=== PATIENT | female | born 1955 | race Caucasian/White ===

== ENCOUNTER 2018-02-12 11:14 | Inpatient (IN) ==
[2018-02-12] MEDS ORDERED: FUROSEMIDE 40 MG/4 ML VIAL IV STA (12:48)
[2018-02-12] MEDS ORDERED: ONDANSETRON 4 MG/2 ML VIAL IV STA (12:48)
[2018-02-12] MEDS ORDERED: MORPHINE 4 MG/1 ML VIAL IV STA (12:48)
[2018-02-12 13:07] LABS: Basophils % 0.2 % (0.0-0.8); Eosinophils % 0.3 % (0.00-10.9); Hematocrit 41.2 VOL% (35.7-47.0); Hemoglobin 12.8 GM/DL (12.0-16.0); Immature Granulocytes % 0.5 %; Immature Granulocytes Absolute 0.06 #; Lymphocytes # 1.1 10*3/uL (1.4-4.0); Lymphocytes % 9.7 % (21.3-54.2); Mean Corpuscular HGB Conc 31.1 GM/DL (32-36); Mean Corpuscular Hemoglobin 27 PG (27-34); Mean Corpuscular Volume 87.5 FL (87-102); Mean Platelet Volume 10.8 FL (9.6-12.0); Monocytes # 0.6 10*3/uL (0.11-0.8); Monocytes % 5.7 % (1.7-12.7); Neutrophils # 9.4 10*3/uL (1.4-7.4); Neutrophils % 83.6 % (38.7-73.9); Platelet Count 336 T/CUMM (130-400); Red Blood Count 4.71 MC/CUMM (3.8-5.5); White Blood Count 11.2 T/CUMM (4-12)
[2018-02-12 13:20] LABS: Bilirubin,Total 0.4 MG/DL (0.2-1.0); Calcium 9.9 MG/DL (8.5-10.1); Osmolality,Calculated 276.5 MOS/KG (273-304); Potassium 3.5 MMOL/L (3.5-5.1); Total Protein 7.7 G/DL (6.4-8.3)
[2018-02-12 13:24] LABS: PT Patient Result 67.2 SECS
[2018-02-12 13:27] LABS: INR 6.8
[2018-02-12] MEDS ORDERED: MAGNESIUM SULF RIDER 2 GM in PREMIX 1 EACH IV STA (13:47)
[2018-02-12] MEDS ORDERED: ACETAMINOPHEN 325 MG TABLET PO PRN (15:31)
[2018-02-12] MEDS ORDERED: MAGNESIUM HYDROXIDE SUSP 30 ML UDCUP PO PRN (15:36)
[2018-02-12] MEDS ORDERED: HEPARIN 5,000 UNIT/1 ML VIAL IV ONE (16:02)
[2018-02-12 16:39] LABS: Apearance,Urine CLEAR (Clear); Bilirubin,Urine Negative (Negative); Blood, Urine Small mg/dL (Negative); Glucose,Urine (UA) Negative (Negative); Hyaline Casts,Urine 7 /LPF (0-3); Ketones,Urine 5 mg/dL (Negative); Mucus,Urine Occasional /LPF (Occasional); Nitrite,Urine Negative (Negative); Protein,Urine Negative; RBC,Urine <1 /HPF (0-4); Urine Color Straw (Yellow); Urine Specific Gravity 1.004 (1.001-1.035); Urine Urobilinogen < 2.0 EU/DL (0.2-1.0); WBC,Urine 1 /HPF (0-6)
[2018-02-12] MEDS: HEPARIN DRIP 25,000 UNITS/500 ML PREMIX IV SCH (17:00)
[2018-02-12] MEDS: CELECOXIB 200 MG CAPSULE PO SCH (21:13)
[2018-02-12] MEDS: DOCUSATE SODIUM 100 MG CAPSULE PO SCH (21:13)
[2018-02-12] MEDS: ANASTROZOLE 1 MG TABLET PO SCH (21:13)
[2018-02-13 03:50] LABS: Basophils % 0.4 % (0.0-0.8); Eosinophils # 0.1 10*3/uL (0.0-0.87); Hematocrit 34.6 VOL% (35.7-47.0); Hemoglobin 11.2 GM/DL (12.0-16.0); Immature Granulocytes % 0.4 %; Immature Granulocytes Absolute 0.03 #; Lymphocytes # 0.8 10*3/uL (1.4-4.0); Lymphocytes % 9.7 % (21.3-54.2); Mean Corpuscular HGB Conc 32.4 GM/DL (32-36); Mean Corpuscular Hemoglobin 27 PG (27-34); Mean Corpuscular Volume 84.4 FL (87-102); Monocytes # 0.5 10*3/uL (0.11-0.8); Monocytes % 6.3 % (1.7-12.7); Neutrophils # 6.5 10*3/uL (1.4-7.4); Neutrophils % 82.2 % (38.7-73.9); Platelet Count 309 T/CUMM (130-400); Red Cell Distribution Width 14.1 % (9.3-17.3); White Blood Count 7.9 T/CUMM (4-12)
[2018-02-13 03:59] LABS: Calcium 9.3 MG/DL (8.5-10.1); Osmolality,Calculated 275.7 MOS/KG (273-304)
[2018-02-13 04:12] LABS: INR 6.3
[2018-02-13 04:14] LABS: Free T4 (Free Thyroxine) 1.61 NG/DL (0.76-1.46); Thyroid Stimulating Hormone < 0.005 uIU/ml (0.358-3.74)
[2018-02-13 04:26] LABS: Partial Thromboplastin Time > 320.0 SECS (0-40)
[2018-02-13 04:27] LABS: PT Patient Result 62.3 SECS
[2018-02-13 05:10] LABS: Potassium 2.5 MMOL/L (3.5-5.1)
[2018-02-13] MEDS: POTASSIUM CHLORIDE RIDER 10 MEQ in PREMIX 1 EACH IV PRN ×5 (05:30→23:55)
[2018-02-13] MEDS: SPIRONOLACTONE 25 MG TABLET PO SCH (08:19)
[2018-02-13] MEDS: METOPROLOL SUCCINATE XL 100 MG TABLET PO SCH (08:19)
[2018-02-13] MEDS: DILTIAZEM CD 180 MG CAPSULE PO SCH (08:19)
[2018-02-13] MEDS: DOCUSATE SODIUM 100 MG CAPSULE PO SCH ×2 (08:20→20:25)
[2018-02-13] MEDS: PANTOPRAZOLE 40 MG TABLET PO SCH (08:20)
[2018-02-13] MEDS ORDERED: MAGNESIUM SULF RIDER 4 GM in PREMIX 1 EACH IV PRN (08:56)
[2018-02-13] MEDS: MAGNESIUM SULF RIDER 2 GM in PREMIX 1 EACH IV PRN (09:59)
[2018-02-13] MEDS: HEPARIN DRIP 25,000 UNITS/500 ML PREMIX IV SCH ×3 (13:15→20:34)
[2018-02-13] MEDS: ANASTROZOLE 1 MG TABLET PO SCH (20:24)
[2018-02-13] MEDS: CELECOXIB 200 MG CAPSULE PO SCH (20:25)
[2018-02-14] MEDS: POTASSIUM CHLORIDE RIDER 10 MEQ in PREMIX 1 EACH IV PRN ×2 (01:06→02:16)
[2018-02-14 06:59] LABS: Basophils % 0.2 % (0.0-0.8); Eosinophils # 0.2 10*3/uL (0.0-0.87); Eosinophils % 2.1 % (0.00-10.9); Hematocrit 36.7 VOL% (35.7-47.0); Hemoglobin 11.6 GM/DL (12.0-16.0); Immature Granulocytes % 0.3 %; Immature Granulocytes Absolute 0.03 #; Lymphocytes # 1.3 10*3/uL (1.4-4.0); Lymphocytes % 14.2 % (21.3-54.2); Mean Corpuscular HGB Conc 31.6 GM/DL (32-36); Mean Corpuscular Hemoglobin 27 PG (27-34); Mean Corpuscular Volume 86.8 FL (87-102); Mean Platelet Volume 11.2 FL (9.6-12.0); Monocytes # 0.6 10*3/uL (0.11-0.8); Monocytes % 6.2 % (1.7-12.7); Neutrophils # 7.1 10*3/uL (1.4-7.4); Platelet Count 290 T/CUMM (130-400); Red Blood Count 4.23 MC/CUMM (3.8-5.5); Red Cell Distribution Width 14.1 % (9.3-17.3); White Blood Count 9.2 T/CUMM (4-12)
[2018-02-14 07:10] LABS: INR 4.2
[2018-02-14 07:22] LABS: PT Patient Result 41.6 SECS
[2018-02-14 07:24] LABS: Calcium 9.8 MG/DL (8.5-10.1); Osmolality,Calculated 273.8 MOS/KG (273-304); Potassium 3.7 MMOL/L (3.5-5.1)
[2018-02-14] MEDS: MAGNESIUM SULF RIDER 2 GM in PREMIX 1 EACH IV PRN ×2 (08:12→15:00)
[2018-02-14] MEDS: METOPROLOL SUCCINATE XL 100 MG TABLET PO SCH (08:13)
[2018-02-14] MEDS: PANTOPRAZOLE 40 MG TABLET PO SCH (08:13)
[2018-02-14] MEDS: DILTIAZEM CD 180 MG CAPSULE PO SCH (08:13)
[2018-02-14] MEDS: DOCUSATE SODIUM 100 MG CAPSULE PO SCH ×2 (08:14→21:12)
[2018-02-14] MEDS: SPIRONOLACTONE 25 MG TABLET PO SCH (08:14)
[2018-02-14] MEDS: HEPARIN DRIP 25,000 UNITS/500 ML PREMIX IV SCH ×2 (09:41→18:47)
[2018-02-14] MEDS ORDERED: POTASSIUM CHLORIDE INJ 10 MEQ, MAGNESIUM SULF INJ 2 GM in SODIUM CHLORIDE 0.45% 1,000 ML IV SCH (14:00)
[2018-02-14] MEDS: FUROSEMIDE 40 MG/4 ML VIAL IV SCH ×2 (14:59→21:11)
[2018-02-14] MEDS: CELECOXIB 200 MG CAPSULE PO SCH (21:12)
[2018-02-14] MEDS: ANASTROZOLE 1 MG TABLET PO SCH (21:12)
[2018-02-15 01:11] LABS: Basophils % 0.1 % (0.0-0.8); Eosinophils # 0.1 10*3/uL (0.0-0.87); Eosinophils % 1.9 % (0.00-10.9); Hemoglobin 11.2 GM/DL (12.0-16.0); Immature Granulocytes % 0.4 %; Immature Granulocytes Absolute 0.03 #; Lymphocytes % 12.8 % (21.3-54.2); Mean Corpuscular HGB Conc 31.1 GM/DL (32-36); Mean Corpuscular Hemoglobin 27 PG (27-34); Mean Platelet Volume 10.3 FL (9.6-12.0); Monocytes # 0.5 10*3/uL (0.11-0.8); Monocytes % 7.1 % (1.7-12.7); Neutrophils # 5.8 10*3/uL (1.4-7.4); Neutrophils % 77.7 % (38.7-73.9); Platelet Count 285 T/CUMM (130-400); Red Blood Count 4.14 MC/CUMM (3.8-5.5); White Blood Count 7.5 T/CUMM (4-12)
[2018-02-15 01:24] LABS: INR 2.5
[2018-02-15 01:25] LABS: PT Patient Result 25.7 SECS
[2018-02-15 01:30] LABS: Calcium 9.3 MG/DL (8.5-10.1); Osmolality,Calculated 275.7 MOS/KG (273-304); Potassium 3.3 MMOL/L (3.5-5.1)
[2018-02-15] MEDS: FUROSEMIDE 40 MG/4 ML VIAL IV SCH ×2 (02:04→10:04)
[2018-02-15] MEDS: HEPARIN DRIP 25,000 UNITS/500 ML PREMIX IV SCH (06:06)
[2018-02-15] MEDS ORDERED: POTASSIUM CHLORIDE 20 MEQ TABLET PO ONE (07:43)
[2018-02-15] MEDS ORDERED: MAGNESIUM SULF RIDER 2 GM in PREMIX 1 EACH IV ONE (07:44)
[2018-02-15] MEDS: SPIRONOLACTONE 25 MG TABLET PO SCH (10:03)
[2018-02-15] MEDS: DILTIAZEM CD 180 MG CAPSULE PO SCH (10:03)
[2018-02-15] MEDS: DOCUSATE SODIUM 100 MG CAPSULE PO SCH (10:03)
[2018-02-15] MEDS: METOPROLOL SUCCINATE XL 100 MG TABLET PO SCH (10:03)
[2018-02-15] MEDS: PANTOPRAZOLE 40 MG TABLET PO SCH (10:46)
[2018-02-15 13:51] VITALS: BP 113/47
== END 2018-02-15 15:35 | disposition home health service (06) | DRG 197 ==
LOC: N.ED 11:14 → N.EDINP 13:59 → N.3E 15:50
PROVIDERS: ADMIT Internal Medicine Nephrology; ATTEND Internal Medicine Nephrology

== ENCOUNTER 2018-09-04 17:08 | Inpatient (IN) ==
[2018-09-04 18:40] LABS: Basophils % 0.3 % (0.0-0.8); Eosinophils # 0.1 10*3/uL (0.0-0.87); Eosinophils % 0.6 % (0.00-10.9); Hematocrit 41.8 VOL% (35.7-47.0); Hemoglobin 13.6 GM/DL (12.0-16.0); Immature Granulocytes % 0.4 %; Immature Granulocytes Absolute 0.06 #; Lymphocytes # 1.1 10*3/uL (1.4-4.0); Lymphocytes % 7.5 % (21.3-54.2); Mean Corpuscular HGB Conc 32.5 GM/DL (32-36); Mean Corpuscular Hemoglobin 29 PG (27-34); Mean Corpuscular Volume 88.6 FL (87-102); Neutrophils # 12.2 10*3/uL (1.4-7.4); Neutrophils % 84.2 % (38.7-73.9); Platelet Count 246 T/CUMM (130-400); Red Blood Count 4.72 MC/CUMM (3.8-5.5); Red Cell Distribution Width 13.8 % (9.3-17.3); White Blood Count 14.5 T/CUMM (4-12)
[2018-09-04 18:49] LABS: Apearance,Urine Slightly Hazy (Clear); Bacteria,Urine Occasional /HPF (Few); Bilirubin,Urine Negative (Negative); Blood, Urine Small mg/dL (Negative); Glucose,Urine (UA) Negative (Negative); Ketones,Urine Negative (Negative); Mucus,Urine Occasional /LPF (Occasional); Nitrite,Urine Negative (Negative); Protein,Urine Negative; RBC,Urine 4 /HPF (0-4); Urine Color Yellow (Yellow); Urine Specific Gravity 1.019 (1.001-1.035); Urine Urobilinogen < 2.0 EU/DL (0.2-1.0); WBC,Urine 2 /HPF (0-6)
[2018-09-04 19:00] LABS: Albumin 3.8 G/DL (3.4-5.0); Bilirubin,Total 0.9 MG/DL (0.2-1.0); Calcium 10.2 MG/DL (8.5-10.1); Osmolality,Calculated 262.9 MOS/KG (273-304); Potassium 3.5 MMOL/L (3.5-5.1); Total Protein 8.2 G/DL (6.4-8.3)
[2018-09-04] MEDS ORDERED: HYDROmorphone 2 MG/1 ML VIAL IV STA (21:16)
[2018-09-04] MEDS: DEXTROSE 5% LACTATED RINGERS 1,000 ML IV SCH (22:53)
[2018-09-05] MEDS: MORPHINE 4 MG/1 ML VIAL IV PRN (04:41)
[2018-09-05 05:34] LABS: Basophils % 0.1 % (0.0-0.8); Hemoglobin 12.9 GM/DL (12.0-16.0); Immature Granulocytes % 0.5 %; Immature Granulocytes Absolute 0.07 #; Lymphocytes # 0.5 10*3/uL (1.4-4.0); Lymphocytes % 3.9 % (21.3-54.2); Mean Corpuscular HGB Conc 33.1 GM/DL (32-36); Mean Corpuscular Hemoglobin 29 PG (27-34); Mean Corpuscular Volume 88.8 FL (87-102); Mean Platelet Volume 11.6 FL (9.6-12.0); Monocytes # 0.9 10*3/uL (0.11-0.8); Monocytes % 6.7 % (1.7-12.7); Neutrophils # 11.9 10*3/uL (1.4-7.4); Neutrophils % 88.8 % (38.7-73.9); Platelet Count 185 T/CUMM (130-400); Red Blood Count 4.39 MC/CUMM (3.8-5.5); Red Cell Distribution Width 13.9 % (9.3-17.3); White Blood Count 13.4 T/CUMM (4-12)
[2018-09-05 06:04] LABS: Lymphocytes 3 % (20-55); Segmented Neutrophils 96 % (50-85); Total Cells Counted 100
[2018-09-05 06:05] LABS: Hypochromasia 1+; Platelet Estimate Decreased
[2018-09-05 06:14] LABS: Calcium 9.3 MG/DL (8.5-10.1); Osmolality,Calculated 269.5 MOS/KG (273-304); Potassium 2.7 MMOL/L (3.5-5.1)
[2018-09-05] MEDS ORDERED: POTASSIUM CHLORIDE RIDER 10 MEQ in PREMIX 1 EACH IV STA (08:28)
[2018-09-05] MEDS ORDERED: POTASSIUM CHLORIDE RIDER 100 ML IV ONE (08:32)
[2018-09-05] MEDS ORDERED: LIDOCAINE 1%/EPI INJ 20 ML VIAL ONE (08:49)
[2018-09-05] MEDS ORDERED: PANTOPRAZOLE 40 MG TABLET PO SCH (09:00)
[2018-09-05] MEDS ORDERED: ONDANSETRON 4 MG/2 ML VIAL IV PRN (10:39)
[2018-09-05] MEDS ORDERED: HYDROmorphone 2 MG/1 ML VIAL IV PRN (10:39)
[2018-09-05] MEDS ORDERED: PROPOFOL 200 MG/20 ML VIAL IV ONE (10:41)
[2018-09-05] MEDS ORDERED: DESFLURANE 1 UNIT/15 MINUTE INH ONE (10:41)
[2018-09-05] MEDS ORDERED: MIDAZOLAM 2 MG/2 ML VIAL ONE (10:41)
[2018-09-05] MEDS ORDERED: GLYCOPYRROLATE 0.4 MG/2 ML VIAL ONE (10:41)
[2018-09-05] MEDS ORDERED: SUCCINYLCHOLINE 200 MG/10 ML VIAL ONE (10:41)
[2018-09-05] MEDS ORDERED: fentaNYL 100 MCG/2 ML VIAL ONE (10:41)
[2018-09-05] MEDS ORDERED: ROCURONIUM 100 MG/10 ML VIAL IV ONE (10:42)
[2018-09-05] MEDS ORDERED: LACTATED RINGERS 1,000 ML IV ONE (10:42)
[2018-09-05] MEDS ORDERED: NEOSTIGMINE 10 MG/10 ML VIAL ONE (10:42)
[2018-09-05] MEDS: DEXTROSE 5% LACTATED RINGERS 1,000 ML IV SCH ×3 (12:09→22:03)
[2018-09-05 16:22] LABS: Osmolality,Calculated 269.4 MOS/KG (273-304); Potassium 2.8 MMOL/L (3.5-5.1)
[2018-09-05] MEDS: METOPROLOL SUCCINATE XL 100 MG TABLET PO SCH (17:05)
[2018-09-05] MEDS: DILTIAZEM CD 180 MG CAPSULE PO SCH (17:05)
[2018-09-05] MEDS: POTASSIUM CHLORIDE RIDER 10 MEQ in PREMIX 1 EACH IV PRN ×5 (17:30→22:00)
[2018-09-05] MEDS: METOPROLOL TARTRATE 5 MG/5 ML VIAL IV PRN (20:55)
[2018-09-06] MEDS: DEXTROSE 5% LACTATED RINGERS 1,000 ML IV SCH ×4 (01:56→19:47)
[2018-09-06] MEDS: METOPROLOL TARTRATE 5 MG/5 ML VIAL IV PRN ×2 (03:06→16:56)
[2018-09-06 04:19] LABS: Basophils % 0.1 % (0.0-0.8); Eosinophils % 0.1 % (0.00-10.9); Hematocrit 38.2 VOL% (35.7-47.0); Hemoglobin 12.3 GM/DL (12.0-16.0); Immature Granulocytes % 0.5 %; Immature Granulocytes Absolute 0.07 #; Lymphocytes # 0.8 10*3/uL (1.4-4.0); Lymphocytes % 5.9 % (21.3-54.2); Mean Corpuscular HGB Conc 32.2 GM/DL (32-36); Mean Corpuscular Hemoglobin 29 PG (27-34); Mean Corpuscular Volume 90.1 FL (87-102); Mean Platelet Volume 11.9 FL (9.6-12.0); Monocytes # 0.9 10*3/uL (0.11-0.8); Monocytes % 6.5 % (1.7-12.7); Neutrophils # 11.8 10*3/uL (1.4-7.4); Neutrophils % 86.9 % (38.7-73.9); Platelet Count 166 T/CUMM (130-400); Red Blood Count 4.24 MC/CUMM (3.8-5.5); Red Cell Distribution Width 14.2 % (9.3-17.3); White Blood Count 13.6 T/CUMM (4-12)
[2018-09-06 04:41] LABS: Calcium 9.2 MG/DL (8.5-10.1); Osmolality,Calculated 268.5 MOS/KG (273-304); Potassium 3.4 MMOL/L (3.5-5.1)
[2018-09-06] MEDS: ENOXAPARIN 40 MG/0.4 ML SYRINGE SUBCUT SCH (05:15)
[2018-09-06 08:13] LABS: Amorphous Crystals,Urine Few /HPF (Few); Apearance,Urine CLOUDY (Clear); Bilirubin,Urine Negative (Negative); Blood, Urine Small mg/dL (Negative); Glucose,Urine (UA) 50 mg/dL (Negative); Ketones,Urine 5 mg/dL (Negative); Mucus,Urine Moderate /LPF (Occasional); Nitrite,Urine Negative (Negative); Protein,Urine 30 MG/DL; RBC,Urine 28 /HPF (0-4); Urine Color Yellow (Yellow); Urine Specific Gravity 1.042 (1.001-1.035); Urine Urobilinogen < 2.0 EU/DL (0.2-1.0)
[2018-09-06] MEDS: POTASSIUM CHLORIDE 20 MEQ TABLET PO SCH (08:14)
[2018-09-06] MEDS: DILTIAZEM CD 180 MG CAPSULE PO SCH (08:14)
[2018-09-06] MEDS: METOPROLOL SUCCINATE XL 100 MG TABLET PO SCH (08:15)
[2018-09-06] MEDS: PANTOPRAZOLE 40 MG VIAL IV SCH (08:15)
[2018-09-06] MEDS ORDERED: GLUCAGON 1 MG VIAL IM PRN (11:21)
[2018-09-06] MEDS ORDERED: DEXTROSE 50% 25 GM/50 ML SYRINGE IV PRN (11:21)
[2018-09-06] MEDS: INSULIN LISPRO 100 UNIT/ML SUBCUT SCH ×3 (11:33→20:46)
[2018-09-06] MEDS: ACETAMINOPHEN 325 MG TABLET PO PRN (16:57)
[2018-09-07] MEDS: DEXTROSE 5% LACTATED RINGERS 1,000 ML IV SCH ×4 (03:59→22:27)
[2018-09-07 04:28] LABS: Basophils % 0.2 % (0.0-0.8); Eosinophils # 0.1 10*3/uL (0.0-0.87); Hematocrit 35.3 VOL% (35.7-47.0); Hemoglobin 11.2 GM/DL (12.0-16.0); Immature Granulocytes % 0.4 %; Immature Granulocytes Absolute 0.04 #; Lymphocytes # 0.8 10*3/uL (1.4-4.0); Lymphocytes % 8.3 % (21.3-54.2); Mean Corpuscular HGB Conc 31.7 GM/DL (32-36); Mean Corpuscular Hemoglobin 29 PG (27-34); Mean Corpuscular Volume 90.5 FL (87-102); Mean Platelet Volume 11.5 FL (9.6-12.0); Monocytes # 0.6 10*3/uL (0.11-0.8); Monocytes % 5.9 % (1.7-12.7); Neutrophils # 8.4 10*3/uL (1.4-7.4); Neutrophils % 84.2 % (38.7-73.9); Platelet Count 152 T/CUMM (130-400); Red Cell Distribution Width 13.9 % (9.3-17.3)
[2018-09-07 04:43] LABS: Calcium 9.1 MG/DL (8.5-10.1); Osmolality,Calculated 269.2 MOS/KG (273-304); Potassium 3.3 MMOL/L (3.5-5.1)
[2018-09-07] MEDS: ENOXAPARIN 40 MG/0.4 ML SYRINGE SUBCUT SCH (05:08)
[2018-09-07] MEDS: POTASSIUM CHLORIDE 20 MEQ TABLET PO SCH (08:01)
[2018-09-07] MEDS: INSULIN LISPRO 100 UNIT/ML SUBCUT SCH ×4 (08:02→20:53)
[2018-09-07] MEDS: DILTIAZEM CD 180 MG CAPSULE PO SCH (08:02)
[2018-09-07] MEDS: PANTOPRAZOLE 40 MG VIAL IV SCH (08:02)
[2018-09-07] MEDS: METOPROLOL SUCCINATE XL 100 MG TABLET PO SCH (08:06)
[2018-09-07] MEDS: SIMETHICONE CHEW 125 MG TABLET PO PRN (14:59)
[2018-09-07] MEDS: ONDANSETRON 4 MG/2 ML VIAL IV PRN ×2 (15:09→21:27)
[2018-09-08] MEDS: MORPHINE 4 MG/1 ML VIAL IV PRN ×2 (00:46→10:06)
[2018-09-08] MEDS: METOPROLOL TARTRATE 5 MG/5 ML VIAL IV PRN (00:47)
[2018-09-08] MEDS: ONDANSETRON 4 MG/2 ML VIAL IV PRN ×2 (04:05→10:06)
[2018-09-08 04:50] LABS: Basophils % 0.3 % (0.0-0.8); Eosinophils % 0.3 % (0.00-10.9); Hematocrit 36.7 VOL% (35.7-47.0); Hemoglobin 11.8 GM/DL (12.0-16.0); Immature Granulocytes % 0.4 %; Immature Granulocytes Absolute 0.04 #; Lymphocytes # 0.5 10*3/uL (1.4-4.0); Lymphocytes % 4.8 % (21.3-54.2); Mean Corpuscular HGB Conc 32.2 GM/DL (32-36); Mean Corpuscular Hemoglobin 29 PG (27-34); Mean Corpuscular Volume 89.5 FL (87-102); Mean Platelet Volume 11.5 FL (9.6-12.0); Monocytes # 0.5 10*3/uL (0.11-0.8); Monocytes % 5.4 % (1.7-12.7); Neutrophils % 88.8 % (38.7-73.9); Platelet Count 187 T/CUMM (130-400); Red Cell Distribution Width 13.6 % (9.3-17.3); White Blood Count 10.1 T/CUMM (4-12)
[2018-09-08 05:02] LABS: Calcium 9.4 MG/DL (8.5-10.1); Osmolality,Calculated 269.4 MOS/KG (273-304); Potassium 3.6 MMOL/L (3.5-5.1)
[2018-09-08] MEDS: ENOXAPARIN 40 MG/0.4 ML SYRINGE SUBCUT SCH (05:18)
[2018-09-08 05:24] LABS: Band Neutrophils 1 % (0-10); Eosinophils 1 % (0-10); Hypochromasia 1+; Lymphocytes 7 % (20-55); Platelet Estimate Adequate; Segmented Neutrophils 88 % (50-85); Total Cells Counted 100
[2018-09-08] MEDS: METOPROLOL SUCCINATE XL 100 MG TABLET PO SCH (08:08)
[2018-09-08] MEDS: INSULIN LISPRO 100 UNIT/ML SUBCUT SCH ×4 (08:08→21:21)
[2018-09-08] MEDS: DILTIAZEM CD 180 MG CAPSULE PO SCH (08:08)
[2018-09-08] MEDS: POTASSIUM CHLORIDE 20 MEQ TABLET PO SCH (08:08)
[2018-09-08] MEDS: DEXTROSE 5% LACTATED RINGERS 1,000 ML IV SCH ×3 (09:54→23:27)
[2018-09-08] MEDS: PANTOPRAZOLE 40 MG VIAL IV SCH (10:08)
[2018-09-08] MEDS ORDERED: PROMETHAZINE 25 MG/1 ML VIAL ONE (10:37)
[2018-09-08] MEDS ORDERED: SCOPOLAMINE 1.5 MG PATCH TRANSDERM ONE ×2 (10:45→10:49)
[2018-09-08] MEDS ORDERED: PROMETHAZINE 25 MG/1 ML VIAL IM ONE (10:52)
[2018-09-08] MEDS: LACTATED RINGERS 1,000 ML IV SCH (10:53)
[2018-09-09 05:05] LABS: Basophils % 0.3 % (0.0-0.8); Eosinophils # 0.1 10*3/uL (0.0-0.87); Eosinophils % 1.5 % (0.00-10.9); Hemoglobin 11.9 GM/DL (12.0-16.0); Immature Granulocytes % 0.3 %; Immature Granulocytes Absolute 0.02 #; Lymphocytes # 0.7 10*3/uL (1.4-4.0); Lymphocytes % 9.9 % (21.3-54.2); Mean Corpuscular HGB Conc 32.2 GM/DL (32-36); Mean Corpuscular Hemoglobin 29 PG (27-34); Mean Corpuscular Volume 89.6 FL (87-102); Mean Platelet Volume 10.6 FL (9.6-12.0); Monocytes # 0.7 10*3/uL (0.11-0.8); Monocytes % 10.5 % (1.7-12.7); Neutrophils # 5.3 10*3/uL (1.4-7.4); Neutrophils % 77.5 % (38.7-73.9); Platelet Count 193 T/CUMM (130-400); Red Blood Count 4.13 MC/CUMM (3.8-5.5); Red Cell Distribution Width 13.9 % (9.3-17.3); White Blood Count 6.8 T/CUMM (4-12)
[2018-09-09 05:21] LABS: Calcium 9.4 MG/DL (8.5-10.1); Osmolality,Calculated 273.1 MOS/KG (273-304); Potassium 3.5 MMOL/L (3.5-5.1)
[2018-09-09] MEDS: ENOXAPARIN 40 MG/0.4 ML SYRINGE SUBCUT SCH (06:12)
[2018-09-09] MEDS: DEXTROSE 5% LACTATED RINGERS 1,000 ML IV SCH ×4 (08:35→23:05)
[2018-09-09] MEDS: POTASSIUM CHLORIDE 20 MEQ TABLET PO SCH (08:37)
[2018-09-09] MEDS: METOPROLOL SUCCINATE XL 100 MG TABLET PO SCH (08:37)
[2018-09-09] MEDS: DILTIAZEM CD 180 MG CAPSULE PO SCH (08:37)
[2018-09-09] MEDS: INSULIN LISPRO 100 UNIT/ML SUBCUT SCH ×4 (08:38→22:00)
[2018-09-09] MEDS: PANTOPRAZOLE 40 MG VIAL IV SCH (08:47)
[2018-09-09] MEDS: METOPROLOL TARTRATE 5 MG/5 ML VIAL IV PRN (09:20)
[2018-09-09] MEDS ORDERED: DEXTROSE 10% 1,000 ML IV PRN (10:00)
[2018-09-09] MEDS ORDERED: TRACE ELEMENTS (5) 1 ML, MULTIVITAMIN INJ 10 ML in AMINO ACIDS/DEXT/LYTES 5-15% 2,000 ML IV SCH (17:00)
[2018-09-09] MEDS: FAT EMULSION 20% 250 ML IV SCH (17:29)
[2018-09-09] MEDS: LACTATED RINGERS 1,000 ML IV SCH (18:47)
[2018-09-10 05:18] LABS: Basophils % 0.3 % (0.0-0.8); Eosinophils # 0.2 10*3/uL (0.0-0.87); Eosinophils % 3.9 % (0.00-10.9); Hematocrit 33.3 VOL% (35.7-47.0); Hemoglobin 10.5 GM/DL (12.0-16.0); Immature Granulocytes % 0.3 %; Immature Granulocytes Absolute 0.02 #; Lymphocytes # 0.7 10*3/uL (1.4-4.0); Lymphocytes % 11.9 % (21.3-54.2); Mean Corpuscular HGB Conc 31.5 GM/DL (32-36); Mean Corpuscular Hemoglobin 29 PG (27-34); Mean Corpuscular Volume 91.2 FL (87-102); Mean Platelet Volume 11.2 FL (9.6-12.0); Monocytes # 0.7 10*3/uL (0.11-0.8); Monocytes % 11.1 % (1.7-12.7); Neutrophils # 4.3 10*3/uL (1.4-7.4); Neutrophils % 72.5 % (38.7-73.9); Platelet Count 138 T/CUMM (130-400); Red Blood Count 3.65 MC/CUMM (3.8-5.5); Red Cell Distribution Width 13.6 % (9.3-17.3)
[2018-09-10 05:19] LABS: Calcium 8.4 MG/DL (8.5-10.1); Osmolality,Calculated 275.8 MOS/KG (273-304); Potassium 3.2 MMOL/L (3.5-5.1)
[2018-09-10 05:21] LABS: Prealbumin 11.8 MG/DL (20-40)
[2018-09-10] MEDS: ENOXAPARIN 40 MG/0.4 ML SYRINGE SUBCUT SCH (06:33)
[2018-09-10] MEDS: DEXTROSE 5% LACTATED RINGERS 1,000 ML IV SCH ×3 (08:10→23:08)
[2018-09-10] MEDS: DILTIAZEM CD 180 MG CAPSULE PO SCH ×2 (08:26→19:34)
[2018-09-10] MEDS: POTASSIUM CHLORIDE 20 MEQ TABLET PO SCH ×2 (08:26→19:34)
[2018-09-10] MEDS: PANTOPRAZOLE 40 MG VIAL IV SCH (08:26)
[2018-09-10] MEDS: METOPROLOL SUCCINATE XL 100 MG TABLET PO SCH ×2 (08:27→20:25)
[2018-09-10] MEDS: POTASSIUM CHLORIDE RIDER 10 MEQ in PREMIX 1 EACH IV PRN ×4 (08:27→12:25)
[2018-09-10] MEDS: INSULIN LISPRO 100 UNIT/ML SUBCUT SCH ×4 (08:27→20:12)
[2018-09-10] MEDS: LACTATED RINGERS 1,000 ML IV SCH (11:44)
[2018-09-10] MEDS ORDERED: MAGNESIUM SULF RIDER 2 GM in PREMIX 1 EACH IV PRN (11:55)
[2018-09-10] MEDS ORDERED: POTASSIUM CHLORIDE RIDER 10 MEQ in PREMIX 1 EACH IV PRN (11:55)
[2018-09-10] MEDS: METOPROLOL TARTRATE 5 MG/5 ML VIAL IV PRN ×2 (12:10→23:42)
[2018-09-10] MEDS: MAGNESIUM SULF RIDER 4 GM in PREMIX 1 EACH IV PRN (15:21)
[2018-09-10] MEDS: FAT EMULSION 20% 250 ML IV SCH (15:23)
[2018-09-10] MEDS ORDERED: TRACE ELEMENTS (5) 1 ML, MULTIVITAMIN INJ 10 ML in AMINO ACIDS/DEXT/LYTES 5-15% 2,000 ML IV SCH (17:00)
[2018-09-10] MEDS: [UNRECOGNIZED DRUG - OTHER] IV SCH (18:06)
[2018-09-10] MEDS: MULTIVITAMIN IV SCH (18:06)
[2018-09-10] MEDS: TRACE ELEMENTS IV SCH (18:06)
[2018-09-10] MEDS: MAGNESIUM SULF IV SCH (18:06)
[2018-09-10] MEDS: ONDANSETRON 4 MG/2 ML VIAL IV PRN (20:24)
[2018-09-10] MEDS: MORPHINE 4 MG/1 ML VIAL IV PRN (20:25)
[2018-09-11 05:00] LABS: Basophils % 0.2 % (0.0-0.8); Eosinophils # 0.2 10*3/uL (0.0-0.87); Eosinophils % 4.4 % (0.00-10.9); Hematocrit 33.5 VOL% (35.7-47.0); Hemoglobin 10.8 GM/DL (12.0-16.0); Immature Granulocytes % 0.4 %; Immature Granulocytes Absolute 0.02 #; Lymphocytes # 0.6 10*3/uL (1.4-4.0); Lymphocytes % 11.4 % (21.3-54.2); Mean Corpuscular HGB Conc 32.2 GM/DL (32-36); Mean Corpuscular Hemoglobin 29 PG (27-34); Mean Corpuscular Volume 89.3 FL (87-102); Mean Platelet Volume 10.7 FL (9.6-12.0); Monocytes # 0.4 10*3/uL (0.11-0.8); Monocytes % 8.3 % (1.7-12.7); Neutrophils # 3.9 10*3/uL (1.4-7.4); Neutrophils % 75.3 % (38.7-73.9); Platelet Count 144 T/CUMM (130-400); Red Blood Count 3.75 MC/CUMM (3.8-5.5); Red Cell Distribution Width 13.2 % (9.3-17.3); White Blood Count 5.2 T/CUMM (4-12)
[2018-09-11 05:11] LABS: Calcium 8.7 MG/DL (8.5-10.1); Potassium 3.5 MMOL/L (3.5-5.1)
[2018-09-11] MEDS: ENOXAPARIN 40 MG/0.4 ML SYRINGE SUBCUT SCH (05:54)
[2018-09-11] MEDS: SIMETHICONE CHEW 125 MG TABLET PO PRN (05:56)
[2018-09-11] MEDS: METOPROLOL TARTRATE 5 MG/5 ML VIAL IV PRN ×3 (06:25→17:05)
[2018-09-11] MEDS: DEXTROSE 5% LACTATED RINGERS 1,000 ML IV SCH ×3 (07:49→23:33)
[2018-09-11] MEDS: ONDANSETRON 4 MG/2 ML VIAL IV PRN ×2 (08:45→13:34)
[2018-09-11] MEDS: INSULIN LISPRO 100 UNIT/ML SUBCUT SCH ×4 (08:47→20:28)
[2018-09-11] MEDS: PANTOPRAZOLE 40 MG VIAL IV SCH (09:06)
[2018-09-11] MEDS: POTASSIUM CHLORIDE 20 MEQ TABLET PO SCH (09:06)
[2018-09-11] MEDS: DILTIAZEM CD 180 MG CAPSULE PO SCH (09:06)
[2018-09-11] MEDS: METOPROLOL SUCCINATE XL 100 MG TABLET PO SCH ×2 (09:06→20:45)
[2018-09-11] MEDS: LACTATED RINGERS 1,000 ML IV SCH (12:04)
[2018-09-11] MEDS: FAT EMULSION 20% 250 ML IV SCH (14:51)
[2018-09-11] MEDS: TRACE ELEMENTS IV SCH (17:06)
[2018-09-11] MEDS: MAGNESIUM SULF IV SCH (17:06)
[2018-09-11] MEDS: MULTIVITAMIN IV SCH (17:06)
[2018-09-11] MEDS: [UNRECOGNIZED DRUG - OTHER] IV SCH (17:06)
[2018-09-12] MEDS: ENOXAPARIN 40 MG/0.4 ML SYRINGE SUBCUT SCH (05:19)
[2018-09-12] MEDS: PANTOPRAZOLE 40 MG VIAL IV SCH (09:38)
[2018-09-12] MEDS: METOPROLOL SUCCINATE XL 100 MG TABLET PO SCH ×2 (09:38→20:20)
[2018-09-12] MEDS: DILTIAZEM CD 180 MG CAPSULE PO SCH (09:38)
[2018-09-12] MEDS: POTASSIUM CHLORIDE 20 MEQ TABLET PO SCH (09:38)
[2018-09-12] MEDS: INSULIN LISPRO 100 UNIT/ML SUBCUT SCH ×4 (09:40→20:20)
[2018-09-12] MEDS: DEXTROSE 5% LACTATED RINGERS 1,000 ML IV SCH ×3 (11:11→23:12)
[2018-09-12] MEDS: LACTATED RINGERS 1,000 ML IV SCH (11:21)
[2018-09-12] MEDS: POTASSIUM CHLORIDE 20 MEQ/15 ML UDCUP PER TUBE SCH (12:59)
[2018-09-12] MEDS: FAT EMULSION 20% 250 ML IV SCH (14:11)
[2018-09-12] MEDS: MULTIVITAMIN IV SCH (17:21)
[2018-09-12] MEDS: TRACE ELEMENTS IV SCH (17:21)
[2018-09-12] MEDS: MAGNESIUM SULF IV SCH (17:21)
[2018-09-12] MEDS: [UNRECOGNIZED DRUG - OTHER] IV SCH (17:21)
[2018-09-12] MEDS: ACETAMINOPHEN 325 MG TABLET PO PRN (20:20)
[2018-09-13] MEDS: METOPROLOL TARTRATE 5 MG/5 ML VIAL IV PRN ×2 (05:21→10:11)
[2018-09-13] MEDS: ENOXAPARIN 40 MG/0.4 ML SYRINGE SUBCUT SCH (05:21)
[2018-09-13 06:19] LABS: Calcium 8.9 MG/DL (8.5-10.1); Osmolality,Calculated 280.5 MOS/KG (273-304); Potassium 3.5 MMOL/L (3.5-5.1); Prealbumin 15.4 MG/DL (20-40)
[2018-09-13] MEDS: DEXTROSE 5% LACTATED RINGERS 1,000 ML IV SCH ×2 (07:26→16:00)
[2018-09-13] MEDS: POTASSIUM CHLORIDE 20 MEQ/15 ML UDCUP PER TUBE SCH (08:12)
[2018-09-13] MEDS: INSULIN LISPRO 100 UNIT/ML SUBCUT SCH ×4 (08:12→22:52)
[2018-09-13] MEDS: PANTOPRAZOLE 40 MG VIAL IV SCH (08:12)
[2018-09-13] MEDS: METOPROLOL SUCCINATE XL 100 MG TABLET PO SCH ×2 (08:12→22:45)
[2018-09-13] MEDS: DILTIAZEM CD 180 MG CAPSULE PO SCH (08:12)
[2018-09-13] MEDS: LACTATED RINGERS 1,000 ML IV SCH (10:11)
[2018-09-13] MEDS: FAT EMULSION 20% 250 ML IV SCH (14:01)
[2018-09-13] MEDS ORDERED: cefTRIAXone 1,000 MG in SYRINGE 1 EACH IV SCH (14:30)
[2018-09-13] MEDS: PIPERACILLIN/TAZOBACTAM 3,375 MG in SODIUM CHLORIDE 0.9% 100 ML IV SCH ×2 (16:00→22:56)
[2018-09-13] MEDS: TRACE ELEMENTS IV SCH (18:05)
[2018-09-13] MEDS: MULTIVITAMIN IV SCH (18:05)
[2018-09-13] MEDS: MAGNESIUM SULF IV SCH (18:05)
[2018-09-13] MEDS: [UNRECOGNIZED DRUG - OTHER] IV SCH (18:05)
[2018-09-14] MEDS: DEXTROSE 5% LACTATED RINGERS 1,000 ML IV SCH (05:17)
[2018-09-14 06:01] LABS: Basophils % 0.2 % (0.0-0.8); Eosinophils # 0.1 10*3/uL (0.0-0.87); Hematocrit 35.5 VOL% (35.7-47.0); Hemoglobin 11.6 GM/DL (12.0-16.0); Immature Granulocytes % 0.6 %; Immature Granulocytes Absolute 0.09 #; Lymphocytes # 0.9 10*3/uL (1.4-4.0); Mean Corpuscular HGB Conc 32.7 GM/DL (32-36); Mean Corpuscular Hemoglobin 29 PG (27-34); Mean Corpuscular Volume 88.5 FL (87-102); Mean Platelet Volume 11.5 FL (9.6-12.0); Monocytes # 0.7 10*3/uL (0.11-0.8); Monocytes % 4.7 % (1.7-12.7); Neutrophils # 12.3 10*3/uL (1.4-7.4); Neutrophils % 87.5 % (38.7-73.9); Platelet Count 180 T/CUMM (130-400); Red Blood Count 4.01 MC/CUMM (3.8-5.5); Red Cell Distribution Width 13.3 % (9.3-17.3); White Blood Count 14.1 T/CUMM (4-12)
[2018-09-14 06:07] LABS: Calcium 8.8 MG/DL (8.5-10.1); Osmolality,Calculated 269.2 MOS/KG (273-304); Potassium 3.9 MMOL/L (3.5-5.1)
[2018-09-14] MEDS: ENOXAPARIN 40 MG/0.4 ML SYRINGE SUBCUT SCH (06:12)
[2018-09-14] MEDS: PIPERACILLIN/TAZOBACTAM 3,375 MG in SODIUM CHLORIDE 0.9% 100 ML IV SCH ×3 (06:13→22:07)
[2018-09-14] MEDS: INSULIN LISPRO 100 UNIT/ML SUBCUT SCH ×4 (07:59→22:02)
[2018-09-14] MEDS: METOPROLOL TARTRATE 5 MG/5 ML VIAL IV PRN (08:27)
[2018-09-14] MEDS: PANTOPRAZOLE 40 MG VIAL IV SCH (08:29)
[2018-09-14] MEDS: DILTIAZEM CD 180 MG CAPSULE PO SCH (08:30)
[2018-09-14] MEDS: METOPROLOL SUCCINATE XL 100 MG TABLET PO SCH ×2 (08:30→22:02)
[2018-09-14] MEDS: POTASSIUM CHLORIDE 20 MEQ/15 ML UDCUP PER TUBE SCH (08:32)
[2018-09-14] MEDS ORDERED: MAGNESIUM SULF RIDER 4 GM in PREMIX 1 EACH IV ONE (10:43)
[2018-09-14] MEDS ORDERED: METOPROLOL TARTRATE 5 MG/5 ML VIAL IV ONE (10:45)
[2018-09-14] MEDS: LACTATED RINGERS 1,000 ML IV SCH (12:08)
[2018-09-14] MEDS: TRACE ELEMENTS IV SCH (19:47)
[2018-09-14] MEDS: MAGNESIUM SULF IV SCH (19:47)
[2018-09-14] MEDS: [UNRECOGNIZED DRUG - OTHER] IV SCH (19:47)
[2018-09-14] MEDS: MULTIVITAMIN IV SCH (19:47)
[2018-09-14] MEDS: FAT EMULSION 20% 250 ML IV SCH (20:10)
[2018-09-15 06:03] LABS: Basophils % 0.1 % (0.0-0.8); Eosinophils # 0.1 10*3/uL (0.0-0.87); Eosinophils % 0.8 % (0.00-10.9); Hemoglobin 12.6 GM/DL (12.0-16.0); Immature Granulocytes % 0.7 %; Immature Granulocytes Absolute 0.11 #; Lymphocytes # 0.8 10*3/uL (1.4-4.0); Mean Corpuscular HGB Conc 32.3 GM/DL (32-36); Mean Corpuscular Hemoglobin 29 PG (27-34); Mean Corpuscular Volume 88.8 FL (87-102); Mean Platelet Volume 11.8 FL (9.6-12.0); Monocytes # 0.7 10*3/uL (0.11-0.8); Monocytes % 3.9 % (1.7-12.7); Neutrophils % 89.5 % (38.7-73.9); Platelet Count 230 T/CUMM (130-400); Red Blood Count 4.39 MC/CUMM (3.8-5.5); Red Cell Distribution Width 13.4 % (9.3-17.3); White Blood Count 16.8 T/CUMM (4-12)
[2018-09-15] MEDS: DEXTROSE 5% LACTATED RINGERS 1,000 ML IV SCH ×2 (06:07→22:49)
[2018-09-15] MEDS: PIPERACILLIN/TAZOBACTAM 3,375 MG in SODIUM CHLORIDE 0.9% 100 ML IV SCH ×3 (06:08→22:57)
[2018-09-15] MEDS: ENOXAPARIN 40 MG/0.4 ML SYRINGE SUBCUT SCH (06:10)
[2018-09-15 06:16] LABS: Osmolality,Calculated 273.2 MOS/KG (273-304); Potassium 3.6 MMOL/L (3.5-5.1)
[2018-09-15] MEDS: METOPROLOL SUCCINATE XL 100 MG TABLET PO SCH ×2 (08:50→20:35)
[2018-09-15] MEDS: DILTIAZEM CD 180 MG CAPSULE PO SCH (08:51)
[2018-09-15] MEDS: INSULIN LISPRO 100 UNIT/ML SUBCUT SCH ×4 (08:51→20:31)
[2018-09-15] MEDS ORDERED: LIDOCAINE 1%/EPI INJ 20 ML VIAL ONE (09:28)
[2018-09-15] MEDS: POTASSIUM CHLORIDE 20 MEQ/15 ML UDCUP PER TUBE SCH (10:39)
[2018-09-15] MEDS: PANTOPRAZOLE 40 MG VIAL IV SCH (10:41)
[2018-09-15] MEDS: HYDROmorphone 2 MG/1 ML VIAL IV PRN ×4 (11:00→11:15)
[2018-09-15] MEDS ORDERED: ONDANSETRON 4 MG/2 ML VIAL ONE ×2 (11:00→11:06)
[2018-09-15] MEDS ORDERED: PROMETHAZINE 25 MG/1 ML VIAL ONE (11:00)
[2018-09-15] MEDS ORDERED: HYDROmorphone 2 MG/1 ML VIAL ONE (11:00)
[2018-09-15] MEDS ORDERED: NEOSTIGMINE 10 MG/10 ML VIAL ONE (11:05)
[2018-09-15] MEDS ORDERED: GLYCOPYRROLATE 0.4 MG/2 ML VIAL ONE (11:05)
[2018-09-15] MEDS ORDERED: MIDAZOLAM 2 MG/2 ML VIAL ONE (11:05)
[2018-09-15] MEDS ORDERED: SEVOFLURANE 1 UNIT/15 MINUTE INH ONE (11:05)
[2018-09-15] MEDS ORDERED: PHENYLEPHRINE 1 MG/10 ML SYRINGE IV ONE (11:05)
[2018-09-15] MEDS ORDERED: ROCURONIUM 100 MG/10 ML VIAL IV ONE (11:05)
[2018-09-15] MEDS ORDERED: fentaNYL 100 MCG/2 ML VIAL ONE (11:05)
[2018-09-15] MEDS ORDERED: PROPOFOL 200 MG/20 ML VIAL IV ONE (11:06)
[2018-09-15] MEDS ORDERED: PROMETHAZINE INJ 25 MG in SODIUM CHLORIDE 0.9% 50 ML IV PRN (11:09)
[2018-09-15] MEDS ORDERED: ONDANSETRON 4 MG/2 ML VIAL IV PRN (11:09)
[2018-09-15] MEDS: LACTATED RINGERS 1,000 ML IV SCH (11:28)
[2018-09-15] MEDS: FAT EMULSION 20% 250 ML IV SCH (15:43)
[2018-09-15] MEDS: [UNRECOGNIZED DRUG - OTHER] IV SCH (23:24)
[2018-09-15] MEDS: MAGNESIUM SULF IV SCH (23:24)
[2018-09-15] MEDS: TRACE ELEMENTS IV SCH (23:24)
[2018-09-15] MEDS: MULTIVITAMIN IV SCH (23:24)
[2018-09-16] MEDS: PIPERACILLIN/TAZOBACTAM 3,375 MG in SODIUM CHLORIDE 0.9% 100 ML IV SCH (06:18)
[2018-09-16] MEDS: ENOXAPARIN 40 MG/0.4 ML SYRINGE SUBCUT SCH (06:19)
[2018-09-16 06:27] LABS: Calcium 8.6 MG/DL (8.5-10.1); Potassium 3.9 MMOL/L (3.5-5.1)
[2018-09-16 07:22] LABS: Basophils % 0.4 % (0.0-0.8); Eosinophils # 0.3 10*3/uL (0.0-0.87); Eosinophils % 2.8 % (0.00-10.9); Hematocrit 35.7 VOL% (35.7-47.0); Hemoglobin 11.4 GM/DL (12.0-16.0); Immature Granulocytes % 0.5 %; Immature Granulocytes Absolute 0.05 #; Lymphocytes # 0.8 10*3/uL (1.4-4.0); Lymphocytes % 7.8 % (21.3-54.2); Mean Corpuscular HGB Conc 31.9 GM/DL (32-36); Mean Corpuscular Hemoglobin 29 PG (27-34); Mean Corpuscular Volume 90.8 FL (87-102); Monocytes # 0.6 10*3/uL (0.11-0.8); Monocytes % 5.7 % (1.7-12.7); Neutrophils # 8.4 10*3/uL (1.4-7.4); Neutrophils % 82.8 % (38.7-73.9); Platelet Count 200 T/CUMM (130-400); Red Blood Count 3.93 MC/CUMM (3.8-5.5); Red Cell Distribution Width 13.6 % (9.3-17.3); White Blood Count 10.1 T/CUMM (4-12)
[2018-09-16] MEDS: POTASSIUM CHLORIDE 20 MEQ/15 ML UDCUP PER TUBE SCH (09:18)
[2018-09-16] MEDS: INSULIN LISPRO 100 UNIT/ML SUBCUT SCH ×4 (09:18→20:28)
[2018-09-16] MEDS: METOPROLOL SUCCINATE XL 100 MG TABLET PO SCH ×2 (09:20→21:37)
[2018-09-16] MEDS: DILTIAZEM CD 180 MG CAPSULE PO SCH (09:20)
[2018-09-16] MEDS: PANTOPRAZOLE 40 MG VIAL IV SCH (09:21)
[2018-09-16] MEDS: AMOXICILLIN/CLAV 875 MG TABLET PO SCH (15:06)
[2018-09-16] MEDS: FAT EMULSION 20% 250 ML IV SCH (15:08)
[2018-09-16] MEDS: MAGNESIUM SULF IV SCH (21:48)
[2018-09-16] MEDS: MULTIVITAMIN IV SCH (21:48)
[2018-09-16] MEDS: [UNRECOGNIZED DRUG - OTHER] IV SCH (21:48)
[2018-09-16] MEDS: TRACE ELEMENTS IV SCH (21:48)
[2018-09-16] MEDS: DEXTROSE 5% LACTATED RINGERS 1,000 ML IV SCH (21:54)
[2018-09-16] MEDS: LACTATED RINGERS 1,000 ML IV SCH (23:04)
[2018-09-17] MEDS: AMOXICILLIN/CLAV 875 MG TABLET PO SCH ×2 (00:26→12:24)
[2018-09-17] MEDS: ONDANSETRON 4 MG/2 ML VIAL IV PRN (00:43)
[2018-09-17 01:23] LABS: Apearance,Urine Slightly Hazy (Clear); Bilirubin,Urine Negative (Negative); Blood, Urine Moderate mg/dL (Negative); Glucose,Urine (UA) Negative (Negative); Hyaline Casts,Urine 3 /LPF (0-3); Ketones,Urine Negative (Negative); Mucus,Urine Occasional /LPF (Occasional); Nitrite,Urine Negative (Negative); Protein,Urine Negative; RBC,Urine 2 /HPF (0-4); Urine Color Yellow (Yellow); Urine Specific Gravity 1.013 (1.001-1.035); Urine Urobilinogen < 2.0 EU/DL (0.2-1.0); WBC,Urine 14 /HPF (0-6)
[2018-09-17 04:59] LABS: Basophils % 0.3 % (0.0-0.8); Eosinophils # 0.2 10*3/uL (0.0-0.87); Eosinophils % 2.8 % (0.00-10.9); Hematocrit 33.5 VOL% (35.7-47.0); Hemoglobin 10.5 GM/DL (12.0-16.0); Immature Granulocytes % 0.4 %; Immature Granulocytes Absolute 0.03 #; Lymphocytes # 0.8 10*3/uL (1.4-4.0); Lymphocytes % 11.2 % (21.3-54.2); Mean Corpuscular HGB Conc 31.3 GM/DL (32-36); Mean Corpuscular Hemoglobin 29 PG (27-34); Mean Corpuscular Volume 90.8 FL (87-102); Mean Platelet Volume 11.3 FL (9.6-12.0); Monocytes # 0.5 10*3/uL (0.11-0.8); Monocytes % 6.6 % (1.7-12.7); Neutrophils # 5.8 10*3/uL (1.4-7.4); Neutrophils % 78.7 % (38.7-73.9); Platelet Count 211 T/CUMM (130-400); Red Blood Count 3.69 MC/CUMM (3.8-5.5); Red Cell Distribution Width 13.3 % (9.3-17.3); White Blood Count 7.4 T/CUMM (4-12)
[2018-09-17 05:21] LABS: Calcium 8.6 MG/DL (8.5-10.1); Osmolality,Calculated 273.1 MOS/KG (273-304); Potassium 3.8 MMOL/L (3.5-5.1)
[2018-09-17] MEDS: ENOXAPARIN 40 MG/0.4 ML SYRINGE SUBCUT SCH (05:38)
[2018-09-17] MEDS: INSULIN LISPRO 100 UNIT/ML SUBCUT SCH ×4 (09:01→22:53)
[2018-09-17] MEDS: PANTOPRAZOLE 40 MG VIAL IV SCH (09:01)
[2018-09-17] MEDS: DILTIAZEM CD 180 MG CAPSULE PO SCH (09:02)
[2018-09-17] MEDS: POTASSIUM CHLORIDE 20 MEQ/15 ML UDCUP PER TUBE SCH (09:02)
[2018-09-17] MEDS: METOPROLOL SUCCINATE XL 100 MG TABLET PO SCH (09:02)
[2018-09-17] MEDS: LACTATED RINGERS 1,000 ML IV SCH (12:03)
[2018-09-17] MEDS: FAT EMULSION 20% 250 ML IV SCH (15:27)
[2018-09-18] MEDS: METOPROLOL SUCCINATE XL 100 MG TABLET PO SCH ×3 (00:14→22:57)
[2018-09-18] MEDS: AMOXICILLIN/CLAV 875 MG TABLET PO SCH ×2 (00:14→12:19)
[2018-09-18] MEDS: DEXTROSE 5% LACTATED RINGERS 1,000 ML IV SCH (00:15)
[2018-09-18] MEDS: ENOXAPARIN 40 MG/0.4 ML SYRINGE SUBCUT SCH (06:44)
[2018-09-18 08:17] LABS: Basophils % 0.6 % (0.0-0.8); Eosinophils # 0.3 10*3/uL (0.0-0.87); Eosinophils % 3.9 % (0.00-10.9); Hematocrit 34.6 VOL% (35.7-47.0); Hemoglobin 10.8 GM/DL (12.0-16.0); Immature Granulocytes % 0.6 %; Immature Granulocytes Absolute 0.04 #; Lymphocytes # 0.7 10*3/uL (1.4-4.0); Lymphocytes % 10.1 % (21.3-54.2); Mean Corpuscular HGB Conc 31.2 GM/DL (32-36); Mean Corpuscular Hemoglobin 29 PG (27-34); Mean Corpuscular Volume 91.8 FL (87-102); Mean Platelet Volume 11.5 FL (9.6-12.0); Monocytes # 0.4 10*3/uL (0.11-0.8); Neutrophils # 5.7 10*3/uL (1.4-7.4); Neutrophils % 79.8 % (38.7-73.9); Platelet Count 218 T/CUMM (130-400); Red Blood Count 3.77 MC/CUMM (3.8-5.5); Red Cell Distribution Width 13.5 % (9.3-17.3); White Blood Count 7.1 T/CUMM (4-12)
[2018-09-18 08:39] LABS: Calcium 8.7 MG/DL (8.5-10.1); Potassium 4.8 MMOL/L (3.5-5.1)
[2018-09-18] MEDS: POTASSIUM CHLORIDE 20 MEQ/15 ML UDCUP PER TUBE SCH (10:01)
[2018-09-18] MEDS: APIXABAN 5 MG TABLET PO SCH ×2 (10:01→22:57)
[2018-09-18] MEDS: DILTIAZEM CD 180 MG CAPSULE PO SCH (10:01)
[2018-09-18] MEDS: PANTOPRAZOLE 40 MG VIAL IV SCH (10:03)
[2018-09-18] MEDS: INSULIN LISPRO 100 UNIT/ML SUBCUT SCH ×4 (15:18→22:57)
[2018-09-18] MEDS: LACTATED RINGERS 1,000 ML IV SCH (15:19)
[2018-09-18] MEDS: ACETAMINOPHEN 325 MG TABLET PO PRN (18:37)
[2018-09-19 05:51] LABS: Basophils % 0.4 % (0.0-0.8); Eosinophils # 0.1 10*3/uL (0.0-0.87); Eosinophils % 2.5 % (0.00-10.9); Immature Granulocytes % 0.4 %; Immature Granulocytes Absolute 0.02 #; Lymphocytes # 0.3 10*3/uL (1.4-4.0); Lymphocytes % 5.8 % (21.3-54.2); Mean Corpuscular HGB Conc 32.4 GM/DL (32-36); Mean Corpuscular Hemoglobin 29 PG (27-34); Mean Corpuscular Volume 89.7 FL (87-102); Mean Platelet Volume 11.3 FL (9.6-12.0); Monocytes # 0.3 10*3/uL (0.11-0.8); Monocytes % 5.2 % (1.7-12.7); Neutrophils # 4.4 10*3/uL (1.4-7.4); Neutrophils % 85.7 % (38.7-73.9); Platelet Count 200 T/CUMM (130-400); Red Blood Count 3.79 MC/CUMM (3.8-5.5); Red Cell Distribution Width 13.2 % (9.3-17.3); White Blood Count 5.2 T/CUMM (4-12)
[2018-09-19 06:03] LABS: Calcium 8.6 MG/DL (8.5-10.1); Osmolality,Calculated 271.8 MOS/KG (273-304); Potassium 3.3 MMOL/L (3.5-5.1)
[2018-09-19] MEDS: POTASSIUM CHLORIDE 20 MEQ/15 ML UDCUP PER TUBE SCH (10:47)
[2018-09-19] MEDS: DILTIAZEM CD 180 MG CAPSULE PO SCH (10:47)
[2018-09-19] MEDS: AMOXICILLIN/CLAV 875 MG TABLET PO SCH ×2 (10:48→22:53)
[2018-09-19] MEDS: PANTOPRAZOLE 40 MG VIAL IV SCH (10:48)
[2018-09-19] MEDS: METOPROLOL SUCCINATE XL 100 MG TABLET PO SCH ×2 (10:48→22:54)
[2018-09-19] MEDS: APIXABAN 5 MG TABLET PO SCH ×2 (10:48→22:53)
[2018-09-19] MEDS: INSULIN LISPRO 100 UNIT/ML SUBCUT SCH ×4 (12:17→22:54)
[2018-09-19] MEDS: LACTATED RINGERS 1,000 ML IV SCH (12:42)
[2018-09-19] MEDS: ACETAMINOPHEN 325 MG TABLET PO PRN (19:07)
[2018-09-20] MEDS: APIXABAN 5 MG TABLET PO SCH ×2 (09:54→21:29)
[2018-09-20] MEDS: METOPROLOL SUCCINATE XL 100 MG TABLET PO SCH ×2 (09:54→21:30)
[2018-09-20] MEDS: AMOXICILLIN/CLAV 875 MG TABLET PO SCH ×2 (09:54→21:29)
[2018-09-20] MEDS: POTASSIUM CHLORIDE 20 MEQ/15 ML UDCUP PER TUBE SCH (09:54)
[2018-09-20] MEDS: DILTIAZEM CD 180 MG CAPSULE PO SCH (09:54)
[2018-09-20] MEDS: PANTOPRAZOLE 40 MG VIAL IV SCH (09:54)
[2018-09-20] MEDS: INSULIN LISPRO 100 UNIT/ML SUBCUT SCH ×3 (10:24→21:29)
[2018-09-20] MEDS: LACTATED RINGERS 1,000 ML IV SCH (19:12)
[2018-09-21 05:56] LABS: Basophils % 0.5 % (0.0-0.8); Eosinophils # 0.1 10*3/uL (0.0-0.87); Eosinophils % 2.2 % (0.00-10.9); Hematocrit 37.6 VOL% (35.7-47.0); Immature Granulocytes % 0.4 %; Immature Granulocytes Absolute 0.02 #; Lymphocytes # 0.8 10*3/uL (1.4-4.0); Lymphocytes % 14.5 % (21.3-54.2); Mean Corpuscular HGB Conc 31.9 GM/DL (32-36); Mean Corpuscular Hemoglobin 29 PG (27-34); Mean Corpuscular Volume 89.5 FL (87-102); Mean Platelet Volume 11.3 FL (9.6-12.0); Monocytes # 0.4 10*3/uL (0.11-0.8); Monocytes % 7.2 % (1.7-12.7); Neutrophils # 4.2 10*3/uL (1.4-7.4); Neutrophils % 75.2 % (38.7-73.9); Platelet Count 184 T/CUMM (130-400); Red Cell Distribution Width 13.7 % (9.3-17.3); White Blood Count 5.5 T/CUMM (4-12)
[2018-09-21 06:12] LABS: Calcium 8.6 MG/DL (8.5-10.1); Osmolality,Calculated 272.7 MOS/KG (273-304); Potassium 3.7 MMOL/L (3.5-5.1)
[2018-09-21] MEDS: PANTOPRAZOLE 40 MG VIAL IV SCH (09:46)
[2018-09-21] MEDS: AMOXICILLIN/CLAV 875 MG TABLET PO SCH (09:47)
[2018-09-21] MEDS: APIXABAN 5 MG TABLET PO SCH (09:47)
[2018-09-21] MEDS: INSULIN LISPRO 100 UNIT/ML SUBCUT SCH ×2 (09:47→12:56)
[2018-09-21] MEDS: DILTIAZEM CD 180 MG CAPSULE PO SCH (09:47)
[2018-09-21] MEDS: POTASSIUM CHLORIDE 20 MEQ/15 ML UDCUP PER TUBE SCH (09:48)
[2018-09-21] MEDS: METOPROLOL SUCCINATE XL 100 MG TABLET PO SCH (09:48)
[2018-09-21] MEDS: MAGNESIUM SULF RIDER 4 GM in PREMIX 1 EACH IV PRN (12:56)
[2018-09-21] MEDS: ACETAMINOPHEN 325 MG TABLET PO PRN (13:34)
[2018-09-21 15:19] VITALS: BP 127/58
[2018-09-21] MEDS: LACTATED RINGERS 1,000 ML IV SCH (15:31)
== END 2018-09-21 15:33 | disposition swing bed (61) | DRG 231 ==
LOC: N.ED 17:08 → N.EDINP 22:02 → N.3E 22:37
PROVIDERS: ADMIT Surgery; ATTEND Surgery

== ENCOUNTER 2021-07-11 11:07 | Inpatient (IN) ==
[2021-07-11] MEDS ORDERED: DILTIAZEM 50 MG/10 ML VIAL IV STA (11:59)
[2021-07-11] MEDS ORDERED: ONDANSETRON 4 MG/2 ML VIAL IV STA (12:00)
[2021-07-11] MEDS ORDERED: HYDROmorphone 2 MG/1 ML VIAL IV STA (12:00)
[2021-07-11] MEDS ORDERED: DILTIAZEM INJ 100 MG in SODIUM CHLORIDE 0.9% 100 ML IV SCH (12:00)
[2021-07-11] MEDS ORDERED: MEROPENEM 1,000 MG in SODIUM CHLORIDE 0.9% 100 ML IV STA (12:00)
[2021-07-11] MEDS ORDERED: MEROPENEM 500 MG in SODIUM CHLORIDE 0.9% 100 ML IV STA (12:03)
[2021-07-11 12:30] LABS: Basophils % 0.2 % (0.0-0.8); Eosinophils % 0.1 % (0.00-10.9); Hematocrit 34.1 VOL% (35.7-47.0); Hemoglobin 10.7 GM/DL (12.0-16.0); Immature Granulocytes % 0.8 %; Immature Granulocytes Absolute 0.11 #; Lymphocytes # 0.5 10*3/uL (1.4-4.0); Lymphocytes % 3.2 % (21.3-54.2); Mean Corpuscular HGB Conc 31.4 GM/DL (32-36); Mean Corpuscular Volume 91.2 FL (87-102); Mean Platelet Volume 10.3 FL (9.6-12.0); Neutrophils % 91.7 % (38.7-73.9); Platelet Count 290 T/CUMM (130-400); Red Blood Count 3.74 MC/CUMM (3.8-5.5); Red Cell Distribution Width 14.5 % (9.3-17.3); White Blood Count 14.3 T/CUMM (4-12)
[2021-07-11 13:02] LABS: Albumin 4.2 G/DL (3.4-5.0); Bilirubin,Total 0.6 MG/DL (0.20-1.00); Osmolality,Calculated 270.2 MOS/KG (273-304); Potassium 2.6 MMOL/L (3.5-5.1); Total Protein 7.8 G/DL (6.4-8.2)
[2021-07-11 13:24] LABS: Lymphocytes 5 % (20-55); Microcytosis Slight; Ovalocytes Few; Platelet Estimate Normal; Segmented Neutrophils 91 % (50-85); Total Cells Counted 100
[2021-07-11] MEDS ORDERED: ONDANSETRON 4 MG/2 ML VIAL IV PRN (13:53)
[2021-07-11] MEDS ORDERED: ACETAMINOPHEN 325 MG TABLET PO PRN (13:53)
[2021-07-11] MEDS ORDERED: DEXTROSE 50% 25 GM/50 ML SYRINGE IV PRN (13:53)
[2021-07-11] MEDS ORDERED: GLUCAGON 1 MG VIAL IM PRN (13:53)
[2021-07-11] MEDS ORDERED: POTASSIUM CHLORIDE 20 MEQ TABLET PO ONE (13:57)
[2021-07-11] MEDS ORDERED: ENOXAPARIN 40 MG/0.4 ML SYRINGE SUBCUT SCH (14:00)
[2021-07-11 14:17] LABS: Risk Ratio 2.07; VLDL Cholesterol 15.2 MG/DL
[2021-07-11 14:26] LABS: Bilirubin,Urine Negative (Negative); Blood, Urine Negative (Negative); Glucose,Urine (UA) Negative (Negative); Hyaline Casts,Urine 15 /LPF (0-3); Ketones,Urine 5 mg/dL (Negative); Mucus,Urine Few /LPF (Occasional); Nitrite,Urine Negative (Negative); Protein,Urine 30 MG/DL; RBC,Urine 2 /HPF (0-4); Squamous Epithelial Cell,Urine Occasional /HPF (0-10); Urine Appearance CLEAR (Clear); Urine Color Amber (Yellow); Urine Specific Gravity 1.029 (1.001-1.035); Urine Urobilinogen < 2.0 EU/DL (0.2-1.0)
[2021-07-11] MEDS: PIPERACILLIN/TAZOBACTAM 3,375 MG in SODIUM CHLORIDE 0.9% 100 ML IV SCH ×2 (14:47→22:08)
[2021-07-11] MEDS ORDERED: POTASSIUM CHLORIDE RIDER 10 MEQ/100 ML PREMIX IV PRN (14:57)
[2021-07-11] MEDS ORDERED: MAGNESIUM SULF RIDER 4 GM/100 ML PREMIX IV PRN (14:58)
[2021-07-11] MEDS ORDERED: SODIUM CHLORIDE 0.9% 1,000 ML IV ONE (15:01)
[2021-07-11] MEDS ORDERED: MORPHINE 2 MG/1 ML SYRINGE IV PRN ×2 (15:50)
[2021-07-11] MEDS: METOPROLOL TARTRATE 100 MG TABLET PO SCH ×2 (16:17→20:53)
[2021-07-11] MEDS: SPIRONOLACTONE 50 MG TABLET PO SCH ×2 (16:17→22:06)
[2021-07-11] MEDS: INSULIN LISPRO 100 UNIT/ML SUBCUT SCH ×2 (16:35→22:33)
[2021-07-11] MEDS: DILTIAZEM CD 240 MG CAPSULE PO SCH (17:32)
[2021-07-11] MEDS: MAGNESIUM SULF RIDER 2 GM/50 ML PREMIX IV PRN (18:11)
[2021-07-11 19:19] LABS: Calcium 8.2 MG/DL (8.5-10.1); Osmolality,Calculated 283.4 MOS/KG (273-304); Potassium 3.6 MMOL/L (3.5-5.1)
[2021-07-12 05:59] LABS: Basophils % 0.4 % (0.0-0.8); Eosinophils # 0.1 10*3/uL (0.0-0.87); Eosinophils % 0.8 % (0.00-10.9); Hematocrit 30.4 VOL% (35.7-47.0); Hemoglobin 9.4 GM/DL (12.0-16.0); Immature Granulocytes % 0.2 %; Immature Granulocytes Absolute 0.02 #; Lymphocytes # 0.4 10*3/uL (1.4-4.0); Lymphocytes % 4.3 % (21.3-54.2); Mean Corpuscular HGB Conc 30.9 GM/DL (32-36); Mean Corpuscular Volume 92.4 FL (87-102); Mean Platelet Volume 9.9 FL (9.6-12.0); Monocytes % 3.7 % (1.7-12.7); Neutrophils % 90.6 % (38.7-73.9); Platelet Count 212 T/CUMM (130-400); Red Blood Count 3.29 MC/CUMM (3.8-5.5); Red Cell Distribution Width 14.7 % (9.3-17.3); White Blood Count 8.6 T/CUMM (4-12)
[2021-07-12] MEDS: PIPERACILLIN/TAZOBACTAM 3,375 MG in SODIUM CHLORIDE 0.9% 100 ML IV SCH ×3 (06:05→22:42)
[2021-07-12 06:15] LABS: Calcium 8.8 MG/DL (8.5-10.1); Osmolality,Calculated 276.7 MOS/KG (273-304); Potassium 3.3 MMOL/L (3.5-5.1)
[2021-07-12 06:28] LABS: Eosinophils 3 % (0-10); Hypochromasia 1+; Lymphocytes 3 % (20-55); Microcytosis 1+; Platelet Estimate Adequate; Segmented Neutrophils 88 % (50-85); Total Cells Counted 100
[2021-07-12] MEDS: INSULIN LISPRO 100 UNIT/ML SUBCUT SCH ×4 (08:04→21:42)
[2021-07-12] MEDS: SPIRONOLACTONE 50 MG TABLET PO SCH ×2 (11:04→21:11)
[2021-07-12] MEDS: SODIUM HYPOCHLORITE 0.25% IRRIG 473 ML BOTTLE TOP SCH (11:04)
[2021-07-12] MEDS: DILTIAZEM CD 240 MG CAPSULE PO SCH (11:04)
[2021-07-12] MEDS: CHLORHEXIDINE 4% SOLN 118 ML BOTTLE TOP SCH (11:05)
[2021-07-12] MEDS: METOPROLOL TARTRATE 100 MG TABLET PO SCH ×2 (11:05→20:56)
[2021-07-12] MEDS ORDERED: LACTATED RINGERS 1,000 ML IV SCH (12:00)
[2021-07-12] MEDS ORDERED: MIDAZOLAM 2 MG/2 ML VIAL ONE (12:09)
[2021-07-12] MEDS ORDERED: LIDOCAINE 1% 50 ML VIAL ONE (12:16)
[2021-07-12] MEDS: VANCOMYCIN INJ 1,500 MG in SODIUM CHLORIDE 0.9% 500 ML IV SCH ×2 (12:23→22:34)
[2021-07-12] MEDS ORDERED: KETAMINE 500 MG/10 ML VIAL ONE (12:33)
[2021-07-12] MEDS ORDERED: LIDOCAINE 2% 5 ML VIAL ONE (12:58)
[2021-07-12] MEDS ORDERED: propofoL 200 MG/20 ML VIAL IV ONE (12:58)
[2021-07-12] MEDS ORDERED: ONDANSETRON 4 MG/2 ML VIAL ONE (12:58)
[2021-07-12] MEDS ORDERED: HYDROmorphone 2 MG/1 ML VIAL IV PRN (13:15)
[2021-07-13] MEDS: PIPERACILLIN/TAZOBACTAM 3,375 MG in SODIUM CHLORIDE 0.9% 100 ML IV SCH ×3 (06:10→22:37)
[2021-07-13 07:22] LABS: Basophils % 0.5 % (0.0-0.8); Eosinophils # 0.1 10*3/uL (0.0-0.87); Eosinophils % 1.1 % (0.00-10.9); Hematocrit 29.9 VOL% (35.7-47.0); Hemoglobin 9.1 GM/DL (12.0-16.0); Immature Granulocytes % 0.6 %; Immature Granulocytes Absolute 0.04 #; Lymphocytes # 0.5 10*3/uL (1.4-4.0); Lymphocytes % 8.6 % (21.3-54.2); Mean Corpuscular HGB Conc 30.4 GM/DL (32-36); Mean Platelet Volume 9.8 FL (9.6-12.0); Monocytes % 5.4 % (1.7-12.7); Neutrophils % 83.8 % (38.7-73.9); Platelet Count 170 T/CUMM (130-400); Red Blood Count 3.25 MC/CUMM (3.8-5.5); Red Cell Distribution Width 14.8 % (9.3-17.3); White Blood Count 6.3 T/CUMM (4-12)
[2021-07-13 07:59] LABS: Calcium 8.2 MG/DL (8.5-10.1); Osmolality,Calculated 273.7 MOS/KG (273-304); Potassium 3.1 MMOL/L (3.5-5.1)
[2021-07-13] MEDS: INSULIN LISPRO 100 UNIT/ML SUBCUT SCH ×4 (09:27→20:37)
[2021-07-13] MEDS: DILTIAZEM CD 240 MG CAPSULE PO SCH (09:29)
[2021-07-13] MEDS: METOPROLOL TARTRATE 100 MG TABLET PO SCH ×2 (09:30→20:35)
[2021-07-13] MEDS: SPIRONOLACTONE 50 MG TABLET PO SCH ×2 (09:30→20:35)
[2021-07-13] MEDS: VANCOMYCIN INJ 1,500 MG in SODIUM CHLORIDE 0.9% 500 ML IV SCH (11:49)
[2021-07-13] MEDS ORDERED: POTASSIUM CHLORIDE 20 MEQ TABLET PO ONE (13:50)
[2021-07-13] MEDS: SODIUM HYPOCHLORITE 0.25% IRRIG 473 ML BOTTLE TOP SCH ×2 (14:34→15:50)
[2021-07-13] MEDS: CHLORHEXIDINE 4% SOLN 118 ML BOTTLE TOP SCH (15:49)
[2021-07-14] MEDS: PIPERACILLIN/TAZOBACTAM 3,375 MG in SODIUM CHLORIDE 0.9% 100 ML IV SCH ×2 (13:47→14:40)
[2021-07-14] MEDS: SPIRONOLACTONE 50 MG TABLET PO SCH ×2 (13:48→20:46)
[2021-07-14] MEDS: INSULIN LISPRO 100 UNIT/ML SUBCUT SCH ×3 (13:48→20:51)
[2021-07-14] MEDS: DILTIAZEM CD 240 MG CAPSULE PO SCH (13:48)
[2021-07-14] MEDS: SODIUM HYPOCHLORITE 0.25% IRRIG 473 ML BOTTLE TOP SCH ×2 (13:49→16:31)
[2021-07-14] MEDS: CHLORHEXIDINE 4% SOLN 118 ML BOTTLE TOP SCH ×2 (13:49→16:31)
[2021-07-14] MEDS: METOPROLOL TARTRATE 100 MG TABLET PO SCH ×2 (13:49→20:46)
[2021-07-14] MEDS: cefTRIAXone 2,000 MG in SODIUM CHLORIDE 0.9% 100 ML IV SCH (15:36)
[2021-07-14 16:00] LABS: Calcium 8.4 MG/DL (8.5-10.1); Potassium 3.5 MMOL/L (3.5-5.1)
[2021-07-14] MEDS: MICAFUNGIN 100 MG in SODIUM CHLORIDE 0.9% 100 ML IV SCH (20:46)
[2021-07-15 05:18] LABS: Basophils % 0.4 % (0.0-0.8); Eosinophils # 0.2 10*3/uL (0.0-0.87); Eosinophils % 2.7 % (0.00-10.9); Hematocrit 31.3 VOL% (35.7-47.0); Hemoglobin 9.8 GM/DL (12.0-16.0); Immature Granulocytes % 0.7 %; Immature Granulocytes Absolute 0.05 #; Lymphocytes # 0.9 10*3/uL (1.4-4.0); Lymphocytes % 11.8 % (21.3-54.2); Mean Corpuscular HGB Conc 31.3 GM/DL (32-36); Mean Platelet Volume 10.1 FL (9.6-12.0); Monocytes % 6.1 % (1.7-12.7); Neutrophils % 78.3 % (38.7-73.9); Platelet Count 168 T/CUMM (130-400); Red Blood Count 3.44 MC/CUMM (3.8-5.5); White Blood Count 7.4 T/CUMM (4-12)
[2021-07-15 05:49] LABS: Calcium 8.7 MG/DL (8.5-10.1); Osmolality,Calculated 274.7 MOS/KG (273-304); Potassium 3.7 MMOL/L (3.5-5.1)
[2021-07-15] MEDS: INSULIN LISPRO 100 UNIT/ML SUBCUT SCH ×4 (08:05→21:04)
[2021-07-15] MEDS: CHLORHEXIDINE 4% SOLN 118 ML BOTTLE TOP SCH (09:23)
[2021-07-15] MEDS: SODIUM HYPOCHLORITE 0.25% IRRIG 473 ML BOTTLE TOP SCH (09:23)
[2021-07-15] MEDS: SPIRONOLACTONE 50 MG TABLET PO SCH ×2 (09:23→21:52)
[2021-07-15] MEDS: METOPROLOL TARTRATE 100 MG TABLET PO SCH ×2 (09:23→21:52)
[2021-07-15] MEDS: DILTIAZEM CD 240 MG CAPSULE PO SCH (09:23)
[2021-07-15] MEDS ORDERED: SKIN HEALING OINT (AQUAPHOR) 50 GM TUBE TOP PRN (14:07)
[2021-07-15] MEDS: cefTRIAXone 2,000 MG in SODIUM CHLORIDE 0.9% 100 ML IV SCH (16:25)
[2021-07-15] MEDS: MICAFUNGIN 100 MG in SODIUM CHLORIDE 0.9% 100 ML IV SCH (21:52)
[2021-07-15] MEDS: FUROSEMIDE 40 MG TABLET PO SCH (21:52)
[2021-07-16 06:27] LABS: Basophils % 0.6 % (0.0-0.8); Eosinophils # 0.3 10*3/uL (0.0-0.87); Eosinophils % 3.7 % (0.00-10.9); Hematocrit 34.4 VOL% (35.7-47.0); Hemoglobin 11.1 GM/DL (12.0-16.0); Immature Granulocytes % 0.4 %; Immature Granulocytes Absolute 0.03 #; Lymphocytes # 0.9 10*3/uL (1.4-4.0); Lymphocytes % 13.4 % (21.3-54.2); Mean Corpuscular HGB Conc 32.3 GM/DL (32-36); Mean Corpuscular Volume 88.4 FL (87-102); Monocytes % 6.6 % (1.7-12.7); Neutrophils % 75.3 % (38.7-73.9); Platelet Count 194 T/CUMM (130-400); Red Blood Count 3.89 MC/CUMM (3.8-5.5); Red Cell Distribution Width 15.2 % (9.3-17.3)
[2021-07-16 06:50] LABS: Albumin 2.1 G/DL (3.4-5.0); Bilirubin,Total 0.6 MG/DL (0.20-1.00); Calcium 8.7 MG/DL (8.5-10.1); Potassium 3.4 MMOL/L (3.5-5.1); Total Protein 6.8 G/DL (6.4-8.2)
[2021-07-16] MEDS: INSULIN LISPRO 100 UNIT/ML SUBCUT SCH ×4 (08:14→20:32)
[2021-07-16] MEDS: ANASTROZOLE 1 MG TABLET PO SCH (09:37)
[2021-07-16] MEDS: SPIRONOLACTONE 50 MG TABLET PO SCH ×2 (09:37→20:48)
[2021-07-16] MEDS: DILTIAZEM CD 240 MG CAPSULE PO SCH (09:37)
[2021-07-16] MEDS: FUROSEMIDE 40 MG TABLET PO SCH ×2 (09:37→20:48)
[2021-07-16] MEDS: METOPROLOL TARTRATE 100 MG TABLET PO SCH ×2 (09:38→20:48)
[2021-07-16] MEDS: POTASSIUM CHLORIDE 20 MEQ TABLET PO SCH (09:38)
[2021-07-16] MEDS: SODIUM HYPOCHLORITE 0.25% IRRIG 473 ML BOTTLE TOP SCH (09:38)
[2021-07-16] MEDS: CHLORHEXIDINE 4% SOLN 118 ML BOTTLE TOP SCH (09:38)
[2021-07-16] MEDS: COLLAGENASE OINT 30 GM TUBE TOP SCH (09:39)
[2021-07-16] MEDS: cefTRIAXone 2,000 MG in SODIUM CHLORIDE 0.9% 100 ML IV SCH (16:44)
[2021-07-16] MEDS: MAGNESIUM SULF RIDER 2 GM/50 ML PREMIX IV PRN (17:35)
[2021-07-16] MEDS: APIXABAN 5 MG TABLET PO SCH (20:48)
[2021-07-16] MEDS: MICAFUNGIN 100 MG in SODIUM CHLORIDE 0.9% 100 ML IV SCH (20:48)
[2021-07-17 04:45] LABS: Basophils % 0.3 % (0.0-0.8); Eosinophils # 0.2 10*3/uL (0.0-0.87); Eosinophils % 2.4 % (0.00-10.9); Hematocrit 36.4 VOL% (35.7-47.0); Hemoglobin 11.5 GM/DL (12.0-16.0); Immature Granulocytes % 0.5 %; Immature Granulocytes Absolute 0.05 #; Lymphocytes # 1.1 10*3/uL (1.4-4.0); Lymphocytes % 11.3 % (21.3-54.2); Mean Corpuscular HGB Conc 31.6 GM/DL (32-36); Mean Corpuscular Volume 88.3 FL (87-102); Mean Platelet Volume 10.3 FL (9.6-12.0); Monocytes % 6.8 % (1.7-12.7); Neutrophils % 78.7 % (38.7-73.9); Platelet Count 202 T/CUMM (130-400); Red Blood Count 4.12 MC/CUMM (3.8-5.5); Red Cell Distribution Width 15.4 % (9.3-17.3); White Blood Count 10.1 T/CUMM (4-12)
[2021-07-17 05:37] LABS: Albumin 2.2 G/DL (3.4-5.0); Bilirubin,Total 0.8 MG/DL (0.20-1.00); Calcium 9.2 MG/DL (8.5-10.1); Osmolality,Calculated 268.2 MOS/KG (273-304); Potassium 3.7 MMOL/L (3.5-5.1); Total Protein 7.1 G/DL (6.4-8.2)
[2021-07-17] MEDS ORDERED: DILTIAZEM CD 120 MG CAPSULE PO SCH (09:00)
[2021-07-17] MEDS: DILTIAZEM CD 240 MG CAPSULE PO SCH (10:21)
[2021-07-17] MEDS: POTASSIUM CHLORIDE 20 MEQ TABLET PO SCH (10:21)
[2021-07-17] MEDS: SPIRONOLACTONE 50 MG TABLET PO SCH ×2 (10:21→22:13)
[2021-07-17] MEDS: ANASTROZOLE 1 MG TABLET PO SCH (10:22)
[2021-07-17] MEDS: METOPROLOL TARTRATE 100 MG TABLET PO SCH ×2 (10:22→22:14)
[2021-07-17] MEDS: APIXABAN 5 MG TABLET PO SCH ×2 (10:22→22:13)
[2021-07-17] MEDS: FUROSEMIDE 40 MG TABLET PO SCH ×2 (10:22→22:13)
[2021-07-17] MEDS: DOCUSATE SODIUM 100 MG CAPSULE PO PRN (10:22)
[2021-07-17] MEDS ORDERED: MAGNESIUM SULF RIDER 2 GM/50 ML PREMIX IV ONE (11:30)
[2021-07-17] MEDS: INSULIN LISPRO 100 UNIT/ML SUBCUT SCH ×3 (14:04→22:14)
[2021-07-17] MEDS: CHLORHEXIDINE 4% SOLN 118 ML BOTTLE TOP SCH (14:05)
[2021-07-17] MEDS: SODIUM HYPOCHLORITE 0.25% IRRIG 473 ML BOTTLE TOP SCH (14:05)
[2021-07-17] MEDS: COLLAGENASE OINT 30 GM TUBE TOP SCH (14:05)
[2021-07-17] MEDS: cefTRIAXone 2,000 MG in SODIUM CHLORIDE 0.9% 100 ML IV SCH (15:07)
[2021-07-17] MEDS ORDERED: POTASSIUM CHLORIDE RIDER 20 MEQ/100 ML PREMIX IV ONE (16:30)
[2021-07-17] MEDS: MICAFUNGIN 100 MG in SODIUM CHLORIDE 0.9% 100 ML IV SCH (22:11)
[2021-07-18 07:26] LABS: Calcium 9.5 MG/DL (8.5-10.1); Osmolality,Calculated 268.2 MOS/KG (273-304); Potassium 3.6 MMOL/L (3.5-5.1)
[2021-07-18] MEDS: METOPROLOL TARTRATE 100 MG TABLET PO SCH ×2 (09:04→22:52)
[2021-07-18] MEDS: SPIRONOLACTONE 50 MG TABLET PO SCH ×2 (09:04→22:52)
[2021-07-18] MEDS: ANASTROZOLE 1 MG TABLET PO SCH (09:04)
[2021-07-18] MEDS: FUROSEMIDE 40 MG TABLET PO SCH ×2 (09:04→22:52)
[2021-07-18] MEDS: POTASSIUM CHLORIDE 20 MEQ TABLET PO SCH (09:04)
[2021-07-18] MEDS: DOCUSATE SODIUM 100 MG CAPSULE PO PRN (09:04)
[2021-07-18] MEDS: APIXABAN 5 MG TABLET PO SCH ×2 (09:04→22:52)
[2021-07-18] MEDS: DILTIAZEM CD 240 MG CAPSULE PO SCH (09:05)
[2021-07-18] MEDS: INSULIN LISPRO 100 UNIT/ML SUBCUT SCH ×4 (10:24→22:55)
[2021-07-18] MEDS: SODIUM HYPOCHLORITE 0.25% IRRIG 473 ML BOTTLE TOP SCH (13:27)
[2021-07-18] MEDS: COLLAGENASE OINT 30 GM TUBE TOP SCH (13:27)
[2021-07-18] MEDS: CHLORHEXIDINE 4% SOLN 118 ML BOTTLE TOP SCH (13:28)
[2021-07-18] MEDS: cefTRIAXone 2,000 MG in SODIUM CHLORIDE 0.9% 100 ML IV SCH (15:17)
[2021-07-18] MEDS: MICAFUNGIN 100 MG in SODIUM CHLORIDE 0.9% 100 ML IV SCH (22:52)
[2021-07-19 04:18] LABS: Basophils # 0.1 10*3/uL (0.0-0.2); Basophils % 0.5 % (0.0-0.8); Eosinophils # 0.2 10*3/uL (0.0-0.87); Eosinophils % 1.9 % (0.00-10.9); Hematocrit 37.5 VOL% (35.7-47.0); Hemoglobin 11.6 GM/DL (12.0-16.0); Immature Granulocytes % 0.4 %; Immature Granulocytes Absolute 0.04 #; Lymphocytes # 1.4 10*3/uL (1.4-4.0); Lymphocytes % 13.1 % (21.3-54.2); Mean Corpuscular HGB Conc 30.9 GM/DL (32-36); Mean Corpuscular Volume 89.1 FL (87-102); Mean Platelet Volume 10.8 FL (9.6-12.0); Monocytes % 7.9 % (1.7-12.7); Neutrophils % 76.2 % (38.7-73.9); Platelet Count 225 T/CUMM (130-400); Red Blood Count 4.21 MC/CUMM (3.8-5.5); Red Cell Distribution Width 15.6 % (9.3-17.3); White Blood Count 10.5 T/CUMM (4-12)
[2021-07-19 04:43] LABS: Calcium 9.7 MG/DL (8.5-10.1); Osmolality,Calculated 272.1 MOS/KG (273-304); Potassium 3.4 MMOL/L (3.5-5.1)
[2021-07-19] MEDS: INSULIN LISPRO 100 UNIT/ML SUBCUT SCH ×4 (07:56→20:55)
[2021-07-19] MEDS: SODIUM HYPOCHLORITE 0.25% IRRIG 473 ML BOTTLE TOP SCH (09:26)
[2021-07-19] MEDS: METOPROLOL TARTRATE 100 MG TABLET PO SCH ×2 (09:26→20:55)
[2021-07-19] MEDS: CHLORHEXIDINE 4% SOLN 118 ML BOTTLE TOP SCH (09:26)
[2021-07-19] MEDS: APIXABAN 5 MG TABLET PO SCH ×2 (09:26→20:55)
[2021-07-19] MEDS: SPIRONOLACTONE 50 MG TABLET PO SCH ×2 (09:26→20:55)
[2021-07-19] MEDS: DILTIAZEM CD 240 MG CAPSULE PO SCH (09:26)
[2021-07-19] MEDS: FUROSEMIDE 40 MG TABLET PO SCH ×2 (09:26→20:55)
[2021-07-19] MEDS: ANASTROZOLE 1 MG TABLET PO SCH (09:26)
[2021-07-19] MEDS: COLLAGENASE OINT 30 GM TUBE TOP SCH (09:27)
[2021-07-19] MEDS ORDERED: LIDOCAINE 1%/EPI INJ 20 ML VIAL ONE (09:35)
[2021-07-19] MEDS ORDERED: BUPIVACAINE MPF 0.25% 30 ML VIAL ONE (09:35)
[2021-07-19] MEDS ORDERED: LIDOCAINE 2% 5 ML VIAL ONE (09:45)
[2021-07-19] MEDS ORDERED: propofoL 200 MG/20 ML VIAL IV ONE (09:45)
[2021-07-19] MEDS ORDERED: MIDAZOLAM 2 MG/2 ML VIAL ONE (09:46)
[2021-07-19] MEDS ORDERED: fentaNYL 100 MCG/2 ML VIAL ONE (09:46)
[2021-07-19] MEDS ORDERED: LACTATED RINGERS 1,000 ML IV SCH (10:30)
[2021-07-19] MEDS ORDERED: TISSUE ADHESIVE 1 EACH APPLICATOR TOP ONE (10:35)
[2021-07-19] MEDS ORDERED: GLUCAGON 1 MG VIAL IM PRN (11:52)
[2021-07-19] MEDS ORDERED: DEXTROSE 50% 25 GM/50 ML VIAL IV PRN (11:52)
[2021-07-19] MEDS: POTASSIUM CHLORIDE 20 MEQ TABLET PO SCH (12:10)
[2021-07-19] MEDS: cefTRIAXone 2,000 MG in SODIUM CHLORIDE 0.9% 100 ML IV SCH (16:23)
[2021-07-19] MEDS: MICAFUNGIN 100 MG in SODIUM CHLORIDE 0.9% 100 ML IV SCH (20:56)
[2021-07-20 03:10] LABS: Basophils % 0.4 % (0.0-0.8); Eosinophils # 0.2 10*3/uL (0.0-0.87); Eosinophils % 2.4 % (0.00-10.9); Hemoglobin 11.6 GM/DL (12.0-16.0); Immature Granulocytes % 0.3 %; Immature Granulocytes Absolute 0.03 #; Lymphocytes # 1.4 10*3/uL (1.4-4.0); Mean Corpuscular HGB Conc 31.4 GM/DL (32-36); Mean Corpuscular Volume 89.2 FL (87-102); Mean Platelet Volume 10.4 FL (9.6-12.0); Monocytes % 6.6 % (1.7-12.7); Neutrophils % 76.3 % (38.7-73.9); Platelet Count 235 T/CUMM (130-400); Red Blood Count 4.15 MC/CUMM (3.8-5.5); Red Cell Distribution Width 15.4 % (9.3-17.3); White Blood Count 9.7 T/CUMM (4-12)
[2021-07-20 03:25] LABS: Calcium 9.6 MG/DL (8.5-10.1); Osmolality,Calculated 268.5 MOS/KG (273-304); Potassium 3.4 MMOL/L (3.5-5.1)
[2021-07-20] MEDS: MAGNESIUM SULF RIDER 2 GM/50 ML PREMIX IV PRN (03:43)
[2021-07-20] MEDS: INSULIN LISPRO 100 UNIT/ML SUBCUT SCH ×4 (08:05→20:30)
[2021-07-20] MEDS: METOPROLOL TARTRATE 100 MG TABLET PO SCH ×2 (09:16→21:12)
[2021-07-20] MEDS: SPIRONOLACTONE 50 MG TABLET PO SCH ×2 (09:16→21:12)
[2021-07-20] MEDS: FUROSEMIDE 40 MG TABLET PO SCH ×2 (09:16→21:12)
[2021-07-20] MEDS: DILTIAZEM CD 240 MG CAPSULE PO SCH (09:17)
[2021-07-20] MEDS: POTASSIUM CHLORIDE 20 MEQ TABLET PO SCH (09:17)
[2021-07-20] MEDS: ANASTROZOLE 1 MG TABLET PO SCH (09:17)
[2021-07-20] MEDS: APIXABAN 5 MG TABLET PO SCH ×2 (09:17→21:12)
[2021-07-20] MEDS: SODIUM HYPOCHLORITE 0.25% IRRIG 473 ML BOTTLE TOP SCH (09:28)
[2021-07-20] MEDS: COLLAGENASE OINT 30 GM TUBE TOP SCH (09:29)
[2021-07-20] MEDS: CHLORHEXIDINE 4% SOLN 118 ML BOTTLE TOP SCH (09:29)
[2021-07-20] MEDS: cefTRIAXone 2,000 MG in SODIUM CHLORIDE 0.9% 100 ML IV SCH (16:50)
[2021-07-20] MEDS: MICAFUNGIN 100 MG in SODIUM CHLORIDE 0.9% 100 ML IV SCH (21:12)
[2021-07-21 06:09] LABS: Basophils # 0.1 10*3/uL (0.0-0.2); Basophils % 0.6 % (0.0-0.8); Eosinophils # 0.2 10*3/uL (0.0-0.87); Eosinophils % 2.8 % (0.00-10.9); Hematocrit 41.5 VOL% (35.7-47.0); Immature Granulocytes % 0.6 %; Immature Granulocytes Absolute 0.05 #; Lymphocytes # 1.3 10*3/uL (1.4-4.0); Lymphocytes % 16.3 % (21.3-54.2); Mean Corpuscular HGB Conc 31.3 GM/DL (32-36); Mean Corpuscular Volume 90.4 FL (87-102); Mean Platelet Volume 10.6 FL (9.6-12.0); Monocytes % 6.6 % (1.7-12.7); Neutrophils % 73.1 % (38.7-73.9); Platelet Count 282 T/CUMM (130-400); Red Blood Count 4.59 MC/CUMM (3.8-5.5); Red Cell Distribution Width 15.8 % (9.3-17.3); White Blood Count 7.9 T/CUMM (4-12)
[2021-07-21 06:22] LABS: Osmolality,Calculated 268.4 MOS/KG (273-304); Potassium 4.1 MMOL/L (3.5-5.1)
[2021-07-21] MEDS: INSULIN LISPRO 100 UNIT/ML SUBCUT SCH ×4 (07:33→20:58)
[2021-07-21] MEDS: POTASSIUM CHLORIDE 20 MEQ TABLET PO SCH (08:31)
[2021-07-21] MEDS: FUROSEMIDE 40 MG TABLET PO SCH ×2 (08:31→20:58)
[2021-07-21] MEDS: ANASTROZOLE 1 MG TABLET PO SCH (08:32)
[2021-07-21] MEDS: SPIRONOLACTONE 50 MG TABLET PO SCH ×2 (08:32→20:57)
[2021-07-21] MEDS: METOPROLOL TARTRATE 100 MG TABLET PO SCH ×2 (08:32→20:57)
[2021-07-21] MEDS: DILTIAZEM CD 240 MG CAPSULE PO SCH (08:32)
[2021-07-21] MEDS: CHLORHEXIDINE 4% SOLN 118 ML BOTTLE TOP SCH (08:32)
[2021-07-21] MEDS: SODIUM HYPOCHLORITE 0.25% IRRIG 473 ML BOTTLE TOP SCH (08:32)
[2021-07-21] MEDS: APIXABAN 5 MG TABLET PO SCH ×2 (08:32→20:57)
[2021-07-21] MEDS: COLLAGENASE OINT 30 GM TUBE TOP SCH (08:32)
[2021-07-21] MEDS: cefTRIAXone 2,000 MG in SODIUM CHLORIDE 0.9% 100 ML IV SCH (16:30)
[2021-07-21] MEDS: MICAFUNGIN 100 MG in SODIUM CHLORIDE 0.9% 100 ML IV SCH (20:57)
[2021-07-22 07:14] LABS: Basophils # 0.1 10*3/uL (0.0-0.2); Basophils % 0.7 % (0.0-0.8); Eosinophils # 0.3 10*3/uL (0.0-0.87); Eosinophils % 2.8 % (0.00-10.9); Hematocrit 42.8 VOL% (35.7-47.0); Hemoglobin 13.4 GM/DL (12.0-16.0); Immature Granulocytes % 0.3 %; Immature Granulocytes Absolute 0.03 #; Lymphocytes # 1.4 10*3/uL (1.4-4.0); Lymphocytes % 15.1 % (21.3-54.2); Mean Corpuscular HGB Conc 31.3 GM/DL (32-36); Mean Corpuscular Volume 89.9 FL (87-102); Mean Platelet Volume 10.7 FL (9.6-12.0); Monocytes % 6.7 % (1.7-12.7); Neutrophils % 74.4 % (38.7-73.9); Platelet Count 291 T/CUMM (130-400); Red Blood Count 4.76 MC/CUMM (3.8-5.5); Red Cell Distribution Width 15.7 % (9.3-17.3)
[2021-07-22 07:22] LABS: Calcium 10.5 MG/DL (8.5-10.1); Osmolality,Calculated 268.4 MOS/KG (273-304); Potassium 4.8 MMOL/L (3.5-5.1)
[2021-07-22] MEDS: METOPROLOL TARTRATE 100 MG TABLET PO SCH ×2 (09:50→22:42)
[2021-07-22] MEDS: ANASTROZOLE 1 MG TABLET PO SCH (09:50)
[2021-07-22] MEDS: SPIRONOLACTONE 50 MG TABLET PO SCH ×2 (09:50→22:43)
[2021-07-22] MEDS: APIXABAN 5 MG TABLET PO SCH ×2 (09:50→22:43)
[2021-07-22] MEDS: DILTIAZEM CD 240 MG CAPSULE PO SCH (09:50)
[2021-07-22] MEDS: INSULIN LISPRO 100 UNIT/ML SUBCUT SCH ×4 (09:50→22:43)
[2021-07-22] MEDS: FUROSEMIDE 40 MG TABLET PO SCH ×2 (09:50→22:43)
[2021-07-22] MEDS: POTASSIUM CHLORIDE 20 MEQ TABLET PO SCH (09:50)
[2021-07-22] MEDS: MICAFUNGIN 100 MG in SODIUM CHLORIDE 0.9% 100 ML IV SCH (09:51)
[2021-07-22] MEDS: COLLAGENASE OINT 30 GM TUBE TOP SCH (09:51)
[2021-07-22] MEDS: SODIUM HYPOCHLORITE 0.25% IRRIG 473 ML BOTTLE TOP SCH (09:51)
[2021-07-22] MEDS: CHLORHEXIDINE 4% SOLN 118 ML BOTTLE TOP SCH (09:52)
[2021-07-23] MEDS: METOPROLOL TARTRATE 100 MG TABLET PO SCH (09:29)
[2021-07-23] MEDS: SPIRONOLACTONE 50 MG TABLET PO SCH (09:29)
[2021-07-23] MEDS: POTASSIUM CHLORIDE 20 MEQ TABLET PO SCH (09:29)
[2021-07-23] MEDS: DILTIAZEM CD 240 MG CAPSULE PO SCH (09:29)
[2021-07-23] MEDS: APIXABAN 5 MG TABLET PO SCH (09:29)
[2021-07-23] MEDS: INSULIN LISPRO 100 UNIT/ML SUBCUT SCH ×3 (09:29→15:52)
[2021-07-23] MEDS: ANASTROZOLE 1 MG TABLET PO SCH (09:30)
[2021-07-23] MEDS: FUROSEMIDE 40 MG TABLET PO SCH (09:30)
[2021-07-23] MEDS: MICAFUNGIN 100 MG in SODIUM CHLORIDE 0.9% 100 ML IV SCH (09:30)
[2021-07-23] MEDS: CHLORHEXIDINE 4% SOLN 118 ML BOTTLE TOP SCH (09:30)
[2021-07-23] MEDS: SODIUM HYPOCHLORITE 0.25% IRRIG 473 ML BOTTLE TOP SCH (09:30)
[2021-07-23] MEDS: COLLAGENASE OINT 30 GM TUBE TOP SCH (09:31)
[2021-07-23 15:45] VITALS: BP 116/63
== END 2021-07-23 17:25 | DRG 264 ==
LOC: EDBD → EDUNIT# → N.ED 11:07 → SUATTDRO 13:53 → N.EDINP 13:53 → N.5E 19:09 → N.TELEN 20:32 → N.3E 07-16 23:49
PROVIDERS: ADMIT Internal Medicine; ATTEND Internal Medicine

== ENCOUNTER 2021-11-08 14:38 | Inpatient (IN) ==
[2021-11-08 16:06] LABS: Basophils % 0.2 % (0.0-0.8); Eosinophils % 0.1 % (0.00-10.9); Immature Granulocytes % 0.5 %; Immature Granulocytes Absolute 0.07 #; Lymphocytes # 0.6 10*3/uL (1.4-4.0); Lymphocytes % 4.5 % (21.3-54.2); Mean Corpuscular HGB Conc 32.4 GM/DL (32-36); Mean Platelet Volume 11.6 FL (9.6-12.0); Monocytes % 7.1 % (1.7-12.7); Neutrophils % 87.6 % (38.7-73.9); Platelet Count 185 T/CUMM (130-400); Red Blood Count 4.11 MC/CUMM (3.8-5.5)
[2021-11-08 16:21] LABS: Alanine Aminotransferase < 6 U/L (13-56); Albumin 2.4 G/DL (3.4-5.0); Alkaline Phosphatase 60 U/L (45-117); Aspartate Amino Transferase 11 U/L (0-37); Blood Urea Nitrogen 23 MG/DL (7-18); Calcium 9.9 MG/DL (8.5-10.1); Carbon Dioxide 32 MMOL/L (21-32); Estimated Glom Filtration Rate 73 ML/MIN; Glucose 111 MG/DL (74-106); Osmolality,Calculated 268.5 MOS/KG (273-304); Potassium 3.8 MMOL/L (3.5-5.1); Sodium 132 MMOL/L (136-145); Total Protein 6.9 G/DL (6.4-8.2)
[2021-11-08 16:26] LABS: Lymphocytes 3 % (20-55); Segmented Neutrophils 94 % (50-85); Total Cells Counted 100
[2021-11-08 16:28] LABS: Platelet Estimate Normal
[2021-11-08] MEDS ORDERED: SODIUM CHLORIDE 0.9% 1,000 ML IV STA (17:17)
[2021-11-08] MEDS ORDERED: PIPERACILLIN/TAZOBACTAM 3,375 MG in SODIUM CHLORIDE 0.9% 100 ML IV STA ×2 (17:17→17:53)
[2021-11-08] MEDS ORDERED: hydrALAZINE 20 MG/1 ML VIAL IV PRN (17:58)
[2021-11-08] MEDS ORDERED: GLUCAGON 1 MG VIAL IM PRN (17:58)
[2021-11-08] MEDS ORDERED: ONDANSETRON 4 MG/2 ML VIAL IV PRN (17:58)
[2021-11-08] MEDS ORDERED: ALBUTEROL 2.5 MG/3 ML NEB RESP TX PRN (17:58)
[2021-11-08] MEDS ORDERED: DOCUSATE SODIUM 100 MG CAPSULE PO PRN (17:58)
[2021-11-08] MEDS ORDERED: ACETAMINOPHEN 325 MG TABLET PO PRN (17:58)
[2021-11-08] MEDS ORDERED: SODIUM CHLORIDE 0.9% 1,000 ML IV SCH (18:00)
[2021-11-08] MEDS ORDERED: DEXTROSE 10% 250 ML BAG IV PRN (18:05)
[2021-11-08] MEDS ORDERED: ENOXAPARIN 40 MG/0.4 ML SYRINGE SUBCUT SCH (18:30)
[2021-11-08] MEDS ORDERED: VANCOMYCIN INJ 1,750 MG in SODIUM CHLORIDE 0.9% 500 ML IV SCH (18:45)
[2021-11-08] MEDS: VANCOMYCIN INJ 1,750 MG in SODIUM CHLORIDE 0.9% 500 ML IV SCH (20:33)
[2021-11-08] MEDS: INSULIN LISPRO 100 UNIT/ML SUBCUT SCH (20:46)
[2021-11-08] MEDS: METOPROLOL TARTRATE 50 MG TABLET PO SCH (20:47)
[2021-11-09 06:52] LABS: Basophils % 0.5 % (0.0-0.8); Eosinophils # 0.1 10*3/uL (0.0-0.87); Eosinophils % 1.5 % (0.00-10.9); Hematocrit 33.9 VOL% (35.7-47.0); Hemoglobin 10.8 GM/DL (12.0-16.0); Immature Granulocytes % 0.5 %; Immature Granulocytes Absolute 0.04 #; Lymphocytes # 0.8 10*3/uL (1.4-4.0); Lymphocytes % 10.3 % (21.3-54.2); Mean Corpuscular HGB Conc 31.9 GM/DL (32-36); Mean Corpuscular Volume 91.1 FL (87-102); Mean Platelet Volume 11.8 FL (9.6-12.0); Monocytes % 9.4 % (1.7-12.7); Neutrophils % 77.8 % (38.7-73.9); Platelet Count 153 T/CUMM (130-400); Red Blood Count 3.72 MC/CUMM (3.8-5.5); Red Cell Distribution Width 14.2 % (9.3-17.3); White Blood Count 7.8 T/CUMM (4-12)
[2021-11-09 07:34] LABS: Osmolality,Calculated 264.5 MOS/KG (273-304); Risk Ratio 2.14; Thyroid Stimulating Hormone 0.019 uIU/ml (0.358-3.74); VLDL Cholesterol 13.6 MG/DL
[2021-11-09] MEDS: INSULIN LISPRO 100 UNIT/ML SUBCUT SCH ×4 (09:21→21:04)
[2021-11-09] MEDS: METOPROLOL TARTRATE 50 MG TABLET PO SCH ×2 (09:37→21:05)
[2021-11-09] MEDS: PANTOPRAZOLE 40 MG TABLET PO SCH (09:37)
[2021-11-09] MEDS: DILTIAZEM CD 240 MG CAPSULE PO SCH (09:37)
[2021-11-09] MEDS: VANCOMYCIN INJ 1,750 MG in SODIUM CHLORIDE 0.9% 500 ML IV SCH (11:36)
[2021-11-09] MEDS ORDERED: POTASSIUM CHLORIDE 20 MEQ TABLET PO ONE (13:54)
[2021-11-09] MEDS: SODIUM CHLOR 0.9% KCL 20 MEQ 20 MEQ/1,000 ML BAG IV SCH (14:38)
[2021-11-09] MEDS: ENOXAPARIN 40 MG/0.4 ML SYRINGE SUBCUT SCH (21:06)
[2021-11-09] MEDS: VANCOMYCIN INJ 1,000 MG in SODIUM CHLORIDE 0.9% 250 ML IV SCH (21:07)
[2021-11-10] MEDS: PIPERACILLIN/TAZOBACTAM 3,375 MG in SODIUM CHLORIDE 0.9% 100 ML IV SCH ×2 (01:50→16:03)
[2021-11-10 05:58] LABS: Basophils % 0.2 % (0.0-0.8); Eosinophils # 0.1 10*3/uL (0.0-0.87); Eosinophils % 0.4 % (0.00-10.9); Hematocrit 32.9 VOL% (35.7-47.0); Hemoglobin 10.6 GM/DL (12.0-16.0); Immature Granulocytes % 0.6 %; Immature Granulocytes Absolute 0.08 #; Lymphocytes % 7.7 % (21.3-54.2); Mean Corpuscular HGB Conc 32.2 GM/DL (32-36); Mean Corpuscular Volume 92.2 FL (87-102); Mean Platelet Volume 11.4 FL (9.6-12.0); Monocytes % 7.8 % (1.7-12.7); Neutrophils % 83.3 % (38.7-73.9); Platelet Count 172 T/CUMM (130-400); Red Blood Count 3.57 MC/CUMM (3.8-5.5); Red Cell Distribution Width 14.2 % (9.3-17.3)
[2021-11-10 06:17] LABS: Calcium 8.4 MG/DL (8.5-10.1); Osmolality,Calculated 261.9 MOS/KG (273-304); Potassium 3.7 MMOL/L (3.5-5.1)
[2021-11-10 06:41] LABS: Calcium 8.6 MG/DL (8.5-10.1); Osmolality,Calculated 264.8 MOS/KG (273-304); Potassium 3.7 MMOL/L (3.5-5.1)
[2021-11-10] MEDS ORDERED: propofoL 200 MG/20 ML VIAL IV ONE (07:34)
[2021-11-10] MEDS ORDERED: LIDOCAINE 2% 5 ML VIAL ONE (07:34)
[2021-11-10] MEDS ORDERED: ETOMIDATE 40 MG/20 ML VIAL IV ONE (07:34)
[2021-11-10] MEDS ORDERED: fentaNYL 100 MCG/2 ML VIAL ONE (07:36)
[2021-11-10] MEDS: INSULIN LISPRO 100 UNIT/ML SUBCUT SCH ×4 (07:44→21:55)
[2021-11-10] MEDS ORDERED: BUPIVACAINE MPF 0.25% 30 ML VIAL ONE (07:53)
[2021-11-10] MEDS ORDERED: LIDOCAINE 1% 5 ML VIAL ONE (07:54)
[2021-11-10] MEDS: VANCOMYCIN INJ 1,000 MG in SODIUM CHLORIDE 0.9% 250 ML IV SCH ×2 (12:40→21:56)
[2021-11-10] MEDS: PANTOPRAZOLE 40 MG TABLET PO SCH (12:45)
[2021-11-10] MEDS: METOPROLOL TARTRATE 50 MG TABLET PO SCH ×2 (12:45→21:51)
[2021-11-10] MEDS: DILTIAZEM CD 240 MG CAPSULE PO SCH (12:45)
[2021-11-10] MEDS ORDERED: MAGNESIUM SULF RIDER 4 GM/100 ML PREMIX IV PRN (13:35)
[2021-11-10] MEDS ORDERED: MAGNESIUM SULF RIDER 2 GM/50 ML PREMIX IV PRN (13:35)
[2021-11-10] MEDS ORDERED: cefTRIAXone 1,000 MG in SODIUM CHLORIDE 0.9% 100 ML IV SCH (14:00)
[2021-11-10] MEDS ORDERED: DEXTROSE 50% 25 GM/50 ML VIAL IV PRN (15:26)
[2021-11-10] MEDS: ENOXAPARIN 40 MG/0.4 ML SYRINGE SUBCUT SCH (21:52)
[2021-11-10] MEDS: SODIUM CHLOR 0.9% KCL 20 MEQ 20 MEQ/1,000 ML BAG IV SCH (21:55)
[2021-11-11 07:14] LABS: Basophils % 0.2 % (0.0-0.8); Eosinophils % 0.2 % (0.00-10.9); Hematocrit 30.3 VOL% (35.7-47.0); Hemoglobin 9.7 GM/DL (12.0-16.0); Immature Granulocytes % 0.7 %; Immature Granulocytes Absolute 0.12 #; Lymphocytes % 5.8 % (21.3-54.2); Mean Platelet Volume 11.3 FL (9.6-12.0); Monocytes % 6.1 % (1.7-12.7); Platelet Count 197 T/CUMM (130-400); Red Blood Count 3.33 MC/CUMM (3.8-5.5); Red Cell Distribution Width 14.5 % (9.3-17.3); White Blood Count 17.5 T/CUMM (4-12)
[2021-11-11 07:49] LABS: Calcium 8.6 MG/DL (8.5-10.1); Osmolality,Calculated 263.9 MOS/KG (273-304); Potassium 3.8 MMOL/L (3.5-5.1)
[2021-11-11 07:58] LABS: Free T4 (Free Thyroxine) 1.46 NG/DL (0.76-1.46)
[2021-11-11] MEDS ORDERED: SODIUM CHLORIDE 0.9% 500 ML IV ONE (08:45)
[2021-11-11] MEDS: PANTOPRAZOLE 40 MG TABLET PO SCH (09:52)
[2021-11-11] MEDS: MAGNESIUM OXIDE 400 MG TABLET PO SCH (09:53)
[2021-11-11] MEDS: INSULIN LISPRO 100 UNIT/ML SUBCUT SCH ×4 (10:26→21:34)
[2021-11-11] MEDS: DILTIAZEM CD 240 MG CAPSULE PO SCH (10:27)
[2021-11-11] MEDS: METOPROLOL TARTRATE 50 MG TABLET PO SCH ×2 (10:28→21:37)
[2021-11-11] MEDS: CEFEPIME 1,000 MG in SODIUM CHLORIDE 0.9% 100 ML IV SCH ×2 (13:35→17:00)
[2021-11-11] MEDS: ENOXAPARIN 40 MG/0.4 ML SYRINGE SUBCUT SCH (21:33)
[2021-11-11] MEDS: LINEZOLID INJ 600 MG/300 ML PREMIX IV SCH (21:38)
[2021-11-12] MEDS: CEFEPIME 1,000 MG in SODIUM CHLORIDE 0.9% 100 ML IV SCH ×3 (00:36→12:23)
[2021-11-12] MEDS: LINEZOLID INJ 600 MG/300 ML PREMIX IV SCH ×2 (08:22→20:57)
[2021-11-12] MEDS: INSULIN LISPRO 100 UNIT/ML SUBCUT SCH ×4 (08:22→21:16)
[2021-11-12] MEDS: METOPROLOL TARTRATE 50 MG TABLET PO SCH ×2 (08:23→21:37)
[2021-11-12] MEDS: MAGNESIUM OXIDE 400 MG TABLET PO SCH (08:23)
[2021-11-12] MEDS: PANTOPRAZOLE 40 MG TABLET PO SCH (08:23)
[2021-11-12] MEDS: DILTIAZEM CD 240 MG CAPSULE PO SCH (08:23)
[2021-11-12 08:25] LABS: Basophils % 0.1 % (0.0-0.8); Eosinophils % 0.2 % (0.00-10.9); Hematocrit 34.2 VOL% (35.7-47.0); Hemoglobin 11.3 GM/DL (12.0-16.0); Immature Granulocytes Absolute 0.21 #; Lymphocytes # 0.7 10*3/uL (1.4-4.0); Lymphocytes % 3.3 % (21.3-54.2); Neutrophils % 90.4 % (38.7-73.9); Platelet Count 229 T/CUMM (130-400); Red Cell Distribution Width 14.6 % (9.3-17.3); White Blood Count 20.8 T/CUMM (4-12)
[2021-11-12 08:43] LABS: Burr Cells Slight; Hypochromia Slight; Lymphocytes 3 % (20-55); Microcytosis Slight; Ovalocytes Slight; Platelet Estimate Adequate; Segmented Neutrophils 94 % (50-85); Total Cells Counted 100
[2021-11-12 08:53] LABS: Calcium 8.7 MG/DL (8.5-10.1); Osmolality,Calculated 261.4 MOS/KG (273-304); Potassium 4.5 MMOL/L (3.5-5.1)
[2021-11-12] MEDS: SODIUM CHLOR 0.9% KCL 20 MEQ 20 MEQ/1,000 ML BAG IV SCH (12:23)
[2021-11-12] MEDS: SODIUM CHLORIDE 0.9% 1,000 ML IV SCH (16:32)
[2021-11-12] MEDS: ENOXAPARIN 40 MG/0.4 ML SYRINGE SUBCUT SCH (21:03)
[2021-11-13 06:11] LABS: Basophils % 0.1 % (0.0-0.8); Eosinophils # 0.1 10*3/uL (0.0-0.87); Eosinophils % 0.9 % (0.00-10.9); Hemoglobin 10.2 GM/DL (12.0-16.0); Immature Granulocytes % 0.6 %; Immature Granulocytes Absolute 0.08 #; Lymphocytes # 0.7 10*3/uL (1.4-4.0); Mean Corpuscular HGB Conc 31.9 GM/DL (32-36); Mean Platelet Volume 11.4 FL (9.6-12.0); Monocytes % 5.8 % (1.7-12.7); Neutrophils % 87.6 % (38.7-73.9); Platelet Count 183 T/CUMM (130-400); Red Blood Count 3.48 MC/CUMM (3.8-5.5); Red Cell Distribution Width 14.6 % (9.3-17.3); White Blood Count 13.8 T/CUMM (4-12)
[2021-11-13 06:26] LABS: Osmolality,Calculated 265.9 MOS/KG (273-304); Potassium 3.8 MMOL/L (3.5-5.1)
[2021-11-13] MEDS ORDERED: cefTRIAXone 2,000 MG in SODIUM CHLORIDE 0.9% 100 ML IV SCH (09:00)
[2021-11-13] MEDS: MAGNESIUM OXIDE 400 MG TABLET PO SCH (09:10)
[2021-11-13] MEDS: PANTOPRAZOLE 40 MG TABLET PO SCH (09:10)
[2021-11-13] MEDS: DILTIAZEM CD 240 MG CAPSULE PO SCH (09:10)
[2021-11-13] MEDS: LINEZOLID INJ 600 MG/300 ML PREMIX IV SCH (09:10)
[2021-11-13] MEDS: METOPROLOL TARTRATE 50 MG TABLET PO SCH (09:10)
[2021-11-13] MEDS: SODIUM CHLORIDE 0.9% 1,000 ML IV SCH (09:10)
[2021-11-13] MEDS: INSULIN LISPRO 100 UNIT/ML SUBCUT SCH (09:51)
[2021-11-13 11:41] LABS: Thyroglobulin Antibody < 1.8 IU/mL (<4.0)
[2021-11-13 12:30] VITALS: BP 123/60
[2021-11-15] MEDS ORDERED: ERGOCALCIFEROL 50,000 UNIT CAPSULE PO SCH (09:00)
== END 2021-11-13 13:30 | disposition swing bed (61) | DRG 628 ==
LOC: EDBD → EDUNIT# → N.ED 14:38 → N.3E 14:38
PROVIDERS: ADMIT Hospitalist; ATTEND Hospitalist

== ENCOUNTER 2021-11-14 09:45 | Inpatient (IN) ==
[2021-11-14 12:43] LABS: Basophils % 0.1 % (0.0-0.8); Hematocrit 35.7 VOL% (35.7-47.0); Hemoglobin 11.2 GM/DL (12.0-16.0); Immature Granulocytes % 0.9 %; Immature Granulocytes Absolute 0.17 #; Lymphocytes # 0.4 10*3/uL (1.4-4.0); Lymphocytes % 2.2 % (21.3-54.2); Mean Corpuscular HGB Conc 31.4 GM/DL (32-36); Mean Corpuscular Volume 93.7 FL (87-102); Mean Platelet Volume 9.8 FL (9.6-12.0); Monocytes # 0.9 10*3/uL (0.11-0.8); Monocytes % 4.5 % (1.7-12.7); Neutrophils % 92.3 % (38.7-73.9); Platelet Count 257 T/CUMM (130-400); Red Blood Count 3.81 MC/CUMM (3.8-5.5); Red Cell Distribution Width 14.7 % (9.3-17.3); White Blood Count 18.9 T/CUMM (4-12)
[2021-11-14] MEDS ORDERED: ALBUTEROL 2.5 MG/3 ML NEB RESP TX PRN (12:48)
[2021-11-14] MEDS ORDERED: ONDANSETRON 4 MG/2 ML VIAL IV PRN (12:48)
[2021-11-14] MEDS ORDERED: ACETAMINOPHEN 325 MG TABLET PO PRN (12:48)
[2021-11-14 12:59] LABS: Arterial Base Excess iSTAT -13 MMOL/L (-2.5-2.5); Arterial Bicarbonate iSTAT 14.9 MMOL/L (20-26); Arterial O2 Saturation iSTAT 90 % (95-100); Arterial PCO2 iSTAT 43 MM HG (35-48); Arterial PO2 iSTAT 76 MM HG (80-95); Arterial Total CO2 iSTAT 16 MMO/L (23-27); Arterial pH iSTAT 7.149 (7.35-7.45)
[2021-11-14] MEDS ORDERED: ENOXAPARIN 30 MG/0.3 ML SYRINGE SUBCUT SCH (13:00)
[2021-11-14 13:01] LABS: Alanine Aminotransferase 21 U/L (13-56); Albumin 1.5 G/DL (3.4-5.0); Alkaline Phosphatase 78 U/L (45-117); Aspartate Amino Transferase 17 U/L (0-37); Bilirubin,Total < 0.39 MG/DL (0.20-1.00); Blood Urea Nitrogen 37 MG/DL (7-18); Calcium 8.9 MG/DL (8.5-10.1); Carbon Dioxide 17 MMOL/L (21-32); Chloride 101 MMOL/L (98-107); Estimated Glom Filtration Rate 19 ML/MIN; Glucose 213 MG/DL (74-106); Osmolality,Calculated 271.1 MOS/KG (273-304); Sodium 128 MMOL/L (136-145); Total Protein 6.1 G/DL (6.4-8.2)
[2021-11-14] MEDS ORDERED: ENOXAPARIN 100 MG/ML SYRINGE SUBCUT SCH (13:30)
[2021-11-14 14:10] LABS: Lymphocytes 2 % (20-55); Total Cells Counted 100
[2021-11-14 14:11] LABS: Burr Cells Few; Polychromasia Slight
[2021-11-14] MEDS ORDERED: FUROSEMIDE 40 MG/4 ML VIAL IV ONE (14:16)
[2021-11-14] MEDS ORDERED: ALBUMIN 25% 12.5 GM/50 ML VIAL IV ONE (14:16)
[2021-11-14] MEDS: PANTOPRAZOLE 40 MG VIAL IV SCH (15:05)
[2021-11-14] MEDS: ENOXAPARIN 100 MG/ML SYRINGE SUBCUT SCH (15:06)
[2021-11-14 15:21] LABS: INR 1.2; PT Patient Result 13.7 SECS (10.5-12.0)
[2021-11-14] MEDS: SODIUM BICARB INJ 100 MEQ in STERILE WATER INJ 1,000 ML IV SCH (16:00)
[2021-11-14] MEDS: CEFTAROLINE 300 MG in SODIUM CHLORIDE 0.9% 100 ML IV SCH (16:06)
[2021-11-14] MEDS: ALBUTEROL 1.25 MG/3 ML NEB RESP TX SCH (20:04)
[2021-11-14 23:14] LABS: Calcium 9.1 MG/DL (8.5-10.1); Osmolality,Calculated 266.2 MOS/KG (273-304); Potassium 5.2 MMOL/L (3.5-5.1)
[2021-11-14 23:18] LABS: Mucus,Urine Occasional /LPF (Occasional); Squamous Epithelial Cell,Urine Occasional /HPF (0-10)
[2021-11-14 23:19] LABS: Bilirubin,Urine Negative (Negative); Blood, Urine Large mg/dL (Negative); Glucose,Urine (UA) Negative (Negative); Ketones,Urine Trace mg/dL (Negative); Nitrite,Urine Negative (Negative); Protein,Urine 30 mg/dL (Negative); Urine Appearance SL CLOUDY (Clear); Urine Color Yellow (Yellow); Urine Specific Gravity >= 1.030 (1.001-1.035)
[2021-11-14 23:20] LABS: Urine Urobilinogen 0.2 eU/dL (<2.0)
[2021-11-14] MEDS ORDERED: SODIUM POLYSTYRENE SULFATE 15 GM/60 ML BOTTLE PO ONE (23:26)
[2021-11-14] MEDS ORDERED: SODIUM BICARBONATE 50 MEQ/50 ML VIAL IV ONE (23:41)
[2021-11-14] MEDS ORDERED: INSULIN REGULAR 10 UNIT, CALCIUM GLUCONATE 1,000 MG in DEXTROSE 10% 250 ML IV ONE (23:41)
[2021-11-15] MEDS: ALBUTEROL 1.25 MG/3 ML NEB RESP TX SCH ×4 (00:06→19:48)
[2021-11-15 01:47] LABS: Basophils % 0.1 % (0.0-0.8); Hematocrit 34.8 VOL% (35.7-47.0); Hemoglobin 11.1 GM/DL (12.0-16.0); Immature Granulocytes % 0.8 %; Immature Granulocytes Absolute 0.15 #; Lymphocytes # 0.7 10*3/uL (1.4-4.0); Lymphocytes % 4.1 % (21.3-54.2); Mean Corpuscular HGB Conc 31.9 GM/DL (32-36); Mean Corpuscular Volume 91.1 FL (87-102); Mean Platelet Volume 10.1 FL (9.6-12.0); Monocytes # 0.7 10*3/uL (0.11-0.8); Monocytes % 3.9 % (1.7-12.7); Neutrophils % 91.1 % (38.7-73.9); Platelet Count 179 T/CUMM (130-400); Red Blood Count 3.82 MC/CUMM (3.8-5.5); Red Cell Distribution Width 14.6 % (9.3-17.3)
[2021-11-15 01:55] LABS: Calcium 8.9 MG/DL (8.5-10.1); Osmolality,Calculated 265.4 MOS/KG (273-304)
[2021-11-15] MEDS ORDERED: INSULIN REGULAR 10 UNIT, CALCIUM GLUCONATE 1,000 MG in DEXTROSE 10% 250 ML IV ONE (02:00)
[2021-11-15 02:11] LABS: Lymphocytes 3 % (20-55); Total Cells Counted 100
[2021-11-15 02:12] LABS: Platelet Estimate Adequate
[2021-11-15] MEDS: CEFTAROLINE 300 MG in SODIUM CHLORIDE 0.9% 100 ML IV SCH ×2 (02:51→13:28)
[2021-11-15 03:33] LABS: Arterial Base Excess iSTAT -4 MMOL/L (-2.5-2.5); Arterial Bicarbonate iSTAT 23.6 MMOL/L (20-26); Arterial O2 Saturation iSTAT 34 % (95-100); Arterial PCO2 iSTAT 57 MM HG (35-48); Arterial PO2 iSTAT 25 MM HG (80-95); Arterial Total CO2 iSTAT 25 MMO/L (23-27); Arterial pH iSTAT 7.229 (7.35-7.45)
[2021-11-15 03:40] LABS: Arterial Base Excess iSTAT -5 MMOL/L (-2.5-2.5); Arterial Bicarbonate iSTAT 20.6 MMOL/L (20-26); Arterial O2 Saturation iSTAT 96 % (95-100); Arterial PCO2 iSTAT 39 MM HG (35-48); Arterial PO2 iSTAT 87 MM HG (80-95); Arterial Total CO2 iSTAT 22 MMO/L (23-27); Arterial pH iSTAT 7.334 (7.35-7.45)
[2021-11-15] MEDS: SODIUM BICARB INJ 100 MEQ in STERILE WATER INJ 1,000 ML IV SCH ×4 (05:47→23:55)
[2021-11-15] MEDS ORDERED: ALBUMIN 25% 12.5 GM/50 ML VIAL IV ONE (10:43)
[2021-11-15] MEDS ORDERED: FUROSEMIDE 40 MG/4 ML VIAL IV ONE (10:44)
[2021-11-15] MEDS: PANTOPRAZOLE 40 MG VIAL IV SCH (13:20)
[2021-11-15] MEDS: ENOXAPARIN 100 MG/ML SYRINGE SUBCUT SCH (13:34)
[2021-11-15] MEDS: MENTHOL/ZINC OXIDE OINT 71 GM JAR TOP SCH ×2 (16:15→21:58)
[2021-11-16] MEDS: CEFTAROLINE 300 MG in SODIUM CHLORIDE 0.9% 100 ML IV SCH ×2 (01:39→13:26)
[2021-11-16] MEDS: ALBUTEROL 1.25 MG/3 ML NEB RESP TX SCH ×4 (01:50→20:27)
[2021-11-16 03:44] LABS: Basophils % 0.1 % (0.0-0.8); Eosinophils % 0.1 % (0.00-10.9); Immature Granulocytes % 0.6 %; Immature Granulocytes Absolute 0.11 #; Lymphocytes # 0.6 10*3/uL (1.4-4.0); Lymphocytes % 3.3 % (21.3-54.2); Mean Corpuscular HGB Conc 32.3 GM/DL (32-36); Mean Corpuscular Volume 90.1 FL (87-102); Monocytes # 0.5 10*3/uL (0.11-0.8); Monocytes % 2.9 % (1.7-12.7); Platelet Count 152 T/CUMM (130-400); Red Blood Count 3.44 MC/CUMM (3.8-5.5); Red Cell Distribution Width 14.6 % (9.3-17.3); White Blood Count 17.9 T/CUMM (4-12)
[2021-11-16 04:06] LABS: Hypochromia Slight; Lymphocytes 2 % (20-55); Platelet Estimate Normal; Total Cells Counted 100
[2021-11-16 04:10] LABS: Albumin 1.6 G/DL (3.4-5.0); Bilirubin,Total 0.7 MG/DL (0.20-1.00); Calcium 7.9 MG/DL (8.5-10.1); Osmolality,Calculated 264.2 MOS/KG (273-304); Potassium 4.1 MMOL/L (3.5-5.1); Total Protein 5.1 G/DL (6.4-8.2)
[2021-11-16 04:23] LABS: Arterial Base Excess iSTAT -1 MMOL/L (-2.5-2.5); Arterial Bicarbonate iSTAT 22.6 MMOL/L (20-26); Arterial O2 Saturation iSTAT 97 % (95-100); Arterial PCO2 iSTAT 34 MM HG (35-48); Arterial PO2 iSTAT 88 MM HG (80-95); Arterial Total CO2 iSTAT 24 MMO/L (23-27); Arterial pH iSTAT 7.426 (7.35-7.45)
[2021-11-16] MEDS: SODIUM BICARB INJ 100 MEQ in STERILE WATER INJ 1,000 ML IV SCH ×3 (06:25→21:52)
[2021-11-16] MEDS: MENTHOL/ZINC OXIDE OINT 71 GM JAR TOP SCH ×2 (08:30→21:14)
[2021-11-16] MEDS: PANTOPRAZOLE 40 MG VIAL IV SCH (13:27)
[2021-11-16] MEDS: ENOXAPARIN 100 MG/ML SYRINGE SUBCUT SCH (13:31)
[2021-11-16] MEDS ORDERED: ACETYLCYSTEINE 20% 800 MG/4 ML VIAL RESP TX SCH (15:00)
[2021-11-16] MEDS: DORNASE ALFA 2.5 MG/2.5 ML VIAL RESP TX SCH (20:27)
[2021-11-17] MEDS: ALBUTEROL 1.25 MG/3 ML NEB RESP TX SCH ×4 (01:45→19:35)
[2021-11-17] MEDS: CEFTAROLINE 300 MG in SODIUM CHLORIDE 0.9% 100 ML IV SCH ×2 (02:14→13:40)
[2021-11-17 03:46] LABS: Basophils % 0.1 % (0.0-0.8); Eosinophils % 0.1 % (0.00-10.9); Hematocrit 29.9 VOL% (35.7-47.0); Immature Granulocytes % 0.8 %; Immature Granulocytes Absolute 0.13 #; Lymphocytes # 0.5 10*3/uL (1.4-4.0); Lymphocytes % 2.8 % (21.3-54.2); Mean Corpuscular HGB Conc 33.4 GM/DL (32-36); Mean Corpuscular Volume 88.5 FL (87-102); Mean Platelet Volume 9.9 FL (9.6-12.0); Monocytes # 0.5 10*3/uL (0.11-0.8); Monocytes % 3.1 % (1.7-12.7); Neutrophils % 93.1 % (38.7-73.9); Platelet Count 122 T/CUMM (130-400); Red Blood Count 3.38 MC/CUMM (3.8-5.5); Red Cell Distribution Width 14.8 % (9.3-17.3)
[2021-11-17 04:10] LABS: Arterial Base Excess iSTAT 2 MMOL/L (-2.5-2.5); Arterial Bicarbonate iSTAT 25.8 MMOL/L (20-26); Arterial O2 Saturation iSTAT 94 % (95-100); Arterial PCO2 iSTAT 37 MM HG (35-48); Arterial PO2 iSTAT 67 MM HG (80-95); Arterial Total CO2 iSTAT 27 MMO/L (23-27)
[2021-11-17 04:14] LABS: Elliptocytes Few; Ovalocytes Few; Platelet Estimate Adequate; Total Cells Counted 100
[2021-11-17 04:15] LABS: Stomatocytes Few
[2021-11-17] MEDS: SODIUM BICARB INJ 100 MEQ in STERILE WATER INJ 1,000 ML IV SCH ×2 (04:19→14:42)
[2021-11-17 05:05] LABS: Albumin 1.5 G/DL (3.4-5.0); Bilirubin,Total 0.4 MG/DL (0.20-1.00); Calcium 7.9 MG/DL (8.5-10.1); Osmolality,Calculated 268.9 MOS/KG (273-304)
[2021-11-17] MEDS: DORNASE ALFA 2.5 MG/2.5 ML VIAL RESP TX SCH ×2 (07:07→19:35)
[2021-11-17] MEDS: MICAFUNGIN 50 MG, MICAFUNGIN 100 MG in SODIUM CHLORIDE 0.9% 100 ML IV SCH (09:04)
[2021-11-17] MEDS: ANASTROZOLE 1 MG TABLET PO SCH (09:06)
[2021-11-17] MEDS: MENTHOL/ZINC OXIDE OINT 71 GM JAR TOP SCH ×2 (09:26→21:51)
[2021-11-17] MEDS: ENOXAPARIN 100 MG/ML SYRINGE SUBCUT SCH (13:40)
[2021-11-17] MEDS: PANTOPRAZOLE 40 MG VIAL IV SCH (13:40)
[2021-11-17] MEDS ORDERED: cefTRIAXone 2,000 MG VIAL IM SCH (16:30)
[2021-11-17] MEDS: cefTRIAXone 2,000 MG in SODIUM CHLORIDE 0.9% 100 ML IV SCH (17:36)
[2021-11-18] MEDS: ALBUTEROL 1.25 MG/3 ML NEB RESP TX SCH ×4 (01:35→19:10)
[2021-11-18] MEDS: SODIUM BICARB INJ 100 MEQ in STERILE WATER INJ 1,000 ML IV SCH ×2 (01:36→14:56)
[2021-11-18] MEDS: LINEZOLID INJ 600 MG/300 ML PREMIX IV SCH ×2 (01:36→14:35)
[2021-11-18 04:08] LABS: Arterial Base Excess iSTAT 5 MMOL/L (-2.5-2.5); Arterial Bicarbonate iSTAT 29.9 MMOL/L (20-26); Arterial O2 Saturation iSTAT 96 % (95-100); Arterial PCO2 iSTAT 43 MM HG (35-48); Arterial PO2 iSTAT 79 MM HG (80-95); Arterial Total CO2 iSTAT 31 MMO/L (23-27); Arterial pH iSTAT 7.454 (7.35-7.45)
[2021-11-18 04:31] LABS: Basophils % 0.1 % (0.0-0.8); Hematocrit 30.3 VOL% (35.7-47.0); Hemoglobin 10.2 GM/DL (12.0-16.0); Immature Granulocytes % 0.9 %; Immature Granulocytes Absolute 0.14 #; Lymphocytes # 0.4 10*3/uL (1.4-4.0); Lymphocytes % 2.3 % (21.3-54.2); Mean Corpuscular HGB Conc 33.7 GM/DL (32-36); Mean Corpuscular Volume 88.1 FL (87-102); Mean Platelet Volume 9.7 FL (9.6-12.0); Monocytes # 0.5 10*3/uL (0.11-0.8); Monocytes % 2.8 % (1.7-12.7); Neutrophils % 93.9 % (38.7-73.9); Platelet Count 92 T/CUMM (130-400); Red Blood Count 3.44 MC/CUMM (3.8-5.5); Red Cell Distribution Width 14.9 % (9.3-17.3); White Blood Count 16.3 T/CUMM (4-12)
[2021-11-18 04:54] LABS: Hypochromia Slight; Lymphocytes 4 % (20-55); Microcytosis Slight; Platelet Estimate Decreased; Total Cells Counted 100
[2021-11-18 05:04] LABS: Alanine Aminotransferase 202 U/L (13-56); Albumin 1.5 G/DL (3.4-5.0); Alkaline Phosphatase 84 U/L (45-117); Aspartate Amino Transferase 45 U/L (0-37); Bilirubin,Total < 0.39 MG/DL (0.20-1.00); Blood Urea Nitrogen 41 MG/DL (7-18); Calcium 7.8 MG/DL (8.5-10.1); Carbon Dioxide 28 MMOL/L (21-32); Chloride 87 MMOL/L (98-107); Estimated Glom Filtration Rate 22 ML/MIN; Glucose 116 MG/DL (74-106); Osmolality,Calculated 265.2 MOS/KG (273-304); Potassium 3.9 MMOL/L (3.5-5.1); Sodium 127 MMOL/L (136-145); Total Protein 5.1 G/DL (6.4-8.2)
[2021-11-18 05:14] LABS: Free T4 (Free Thyroxine) 0.87 NG/DL (0.76-1.46); Thyroid Stimulating Hormone 0.098 uIU/ml (0.358-3.74)
[2021-11-18] MEDS: DORNASE ALFA 2.5 MG/2.5 ML VIAL RESP TX SCH ×2 (06:45→19:16)
[2021-11-18] MEDS: ANASTROZOLE 1 MG TABLET PO SCH (08:09)
[2021-11-18] MEDS: SODIUM BICARBONATE 650 MG TABLET PO SCH ×2 (08:14→21:02)
[2021-11-18] MEDS: MICAFUNGIN 50 MG, MICAFUNGIN 100 MG in SODIUM CHLORIDE 0.9% 100 ML IV SCH (08:14)
[2021-11-18] MEDS: MENTHOL/ZINC OXIDE OINT 71 GM JAR TOP SCH ×2 (08:15→21:02)
[2021-11-18] MEDS: ENOXAPARIN 100 MG/ML SYRINGE SUBCUT SCH (14:35)
[2021-11-18] MEDS: PANTOPRAZOLE 40 MG VIAL IV SCH (14:35)
[2021-11-18] MEDS: cefTRIAXone 2,000 MG in SODIUM CHLORIDE 0.9% 100 ML IV SCH (18:11)
[2021-11-19] MEDS: ALBUTEROL 1.25 MG/3 ML NEB RESP TX SCH ×4 (00:33→18:45)
[2021-11-19] MEDS: LINEZOLID INJ 600 MG/300 ML PREMIX IV SCH ×2 (02:27→13:52)
[2021-11-19 05:16] LABS: Basophils % 0.1 % (0.0-0.8); Eosinophils % 0.1 % (0.00-10.9); Hematocrit 29.8 VOL% (35.7-47.0); Hemoglobin 9.7 GM/DL (12.0-16.0); Immature Granulocytes % 0.8 %; Immature Granulocytes Absolute 0.12 #; Lymphocytes # 0.4 10*3/uL (1.4-4.0); Lymphocytes % 2.9 % (21.3-54.2); Mean Corpuscular HGB Conc 32.6 GM/DL (32-36); Mean Corpuscular Volume 89.5 FL (87-102); Mean Platelet Volume 10.3 FL (9.6-12.0); Monocytes # 0.6 10*3/uL (0.11-0.8); Monocytes % 4.2 % (1.7-12.7); Neutrophils % 91.9 % (38.7-73.9); Platelet Count 62 T/CUMM (130-400); Red Blood Count 3.33 MC/CUMM (3.8-5.5); White Blood Count 15.2 T/CUMM (4-12)
[2021-11-19 05:36] LABS: Osmolality,Calculated 267.1 MOS/KG (273-304); Potassium 3.6 MMOL/L (3.5-5.1)
[2021-11-19 05:49] LABS: Lymphocytes 4 % (20-55); Platelet Estimate Decreased; Total Cells Counted 100
[2021-11-19 05:50] LABS: Hypochromia Slight; Microcytosis Slight
[2021-11-19] MEDS: DORNASE ALFA 2.5 MG/2.5 ML VIAL RESP TX SCH ×2 (06:49→18:45)
[2021-11-19] MEDS: SODIUM BICARBONATE 650 MG TABLET PO SCH ×2 (08:08→20:40)
[2021-11-19] MEDS: ANASTROZOLE 1 MG TABLET PO SCH (08:09)
[2021-11-19] MEDS ORDERED: FUROSEMIDE 40 MG/4 ML VIAL IV ONE (08:32)
[2021-11-19] MEDS: MICAFUNGIN 50 MG, MICAFUNGIN 100 MG in SODIUM CHLORIDE 0.9% 100 ML IV SCH (09:23)
[2021-11-19] MEDS: MENTHOL/ZINC OXIDE OINT 71 GM JAR TOP SCH ×2 (10:23→20:40)
[2021-11-19] MEDS: PANTOPRAZOLE 40 MG VIAL IV SCH (13:51)
[2021-11-19] MEDS: ENOXAPARIN 100 MG/ML SYRINGE SUBCUT SCH (13:53)
[2021-11-19] MEDS: cefTRIAXone 2,000 MG in SODIUM CHLORIDE 0.9% 100 ML IV SCH (17:50)
[2021-11-20] MEDS: ALBUTEROL 1.25 MG/3 ML NEB RESP TX SCH ×4 (00:30→19:30)
[2021-11-20] MEDS: LINEZOLID INJ 600 MG/300 ML PREMIX IV SCH ×2 (02:10→13:09)
[2021-11-20 05:31] LABS: Basophils % 0.1 % (0.0-0.8); Eosinophils % 0.3 % (0.00-10.9); Hematocrit 31.5 VOL% (35.7-47.0); Hemoglobin 10.2 GM/DL (12.0-16.0); Immature Granulocytes % 0.7 %; Lymphocytes # 0.6 10*3/uL (1.4-4.0); Mean Corpuscular HGB Conc 32.4 GM/DL (32-36); Mean Platelet Volume 10.2 FL (9.6-12.0); Monocytes # 0.7 10*3/uL (0.11-0.8); Monocytes % 4.6 % (1.7-12.7); Neutrophils % 90.3 % (38.7-73.9); Platelet Count 51 T/CUMM (130-400); Red Blood Count 3.46 MC/CUMM (3.8-5.5); Red Cell Distribution Width 15.3 % (9.3-17.3); White Blood Count 14.1 T/CUMM (4-12)
[2021-11-20 05:48] LABS: Calcium 8.2 MG/DL (8.5-10.1); Osmolality,Calculated 268.1 MOS/KG (273-304); Potassium 3.3 MMOL/L (3.5-5.1)
[2021-11-20 05:53] LABS: Hypochromia Slight; Lymphocytes 1 % (20-55); Microcytosis Slight; Platelet Estimate Decreased; Total Cells Counted 100
[2021-11-20] MEDS: DORNASE ALFA 2.5 MG/2.5 ML VIAL RESP TX SCH ×2 (07:00→19:37)
[2021-11-20] MEDS ORDERED: FUROSEMIDE 40 MG/4 ML VIAL IV ONE (08:02)
[2021-11-20] MEDS: SODIUM BICARBONATE 650 MG TABLET PO SCH ×2 (08:14→20:07)
[2021-11-20] MEDS: ANASTROZOLE 1 MG TABLET PO SCH (08:14)
[2021-11-20] MEDS: MENTHOL/ZINC OXIDE OINT 71 GM JAR TOP SCH ×2 (08:15→20:07)
[2021-11-20] MEDS: MICAFUNGIN 50 MG, MICAFUNGIN 100 MG in SODIUM CHLORIDE 0.9% 100 ML IV SCH (09:10)
[2021-11-20] MEDS: APIXABAN 5 MG TABLET PO SCH ×2 (09:11→20:07)
[2021-11-20] MEDS: PANTOPRAZOLE 40 MG TABLET PO SCH (09:11)
[2021-11-20] MEDS: POTASSIUM CHLORIDE 20 MEQ TABLET PO SCH ×2 (09:11→13:09)
[2021-11-20] MEDS: cefTRIAXone 2,000 MG in SODIUM CHLORIDE 0.9% 100 ML IV SCH (17:04)
[2021-11-21] MEDS: ALBUTEROL 1.25 MG/3 ML NEB RESP TX SCH ×4 (01:20→20:00)
[2021-11-21] MEDS: LINEZOLID INJ 600 MG/300 ML PREMIX IV SCH (01:34)
[2021-11-21 03:35] LABS: Basophils % 0.1 % (0.0-0.8); Eosinophils % 0.2 % (0.00-10.9); Hematocrit 32.1 VOL% (35.7-47.0); Hemoglobin 10.4 GM/DL (12.0-16.0); Immature Granulocytes % 0.7 %; Immature Granulocytes Absolute 0.08 #; Lymphocytes # 0.5 10*3/uL (1.4-4.0); Lymphocytes % 4.1 % (21.3-54.2); Mean Corpuscular HGB Conc 32.4 GM/DL (32-36); Mean Corpuscular Volume 91.5 FL (87-102); Mean Platelet Volume 10.7 FL (9.6-12.0); Monocytes # 0.6 10*3/uL (0.11-0.8); Monocytes % 4.6 % (1.7-12.7); Neutrophils % 90.3 % (38.7-73.9); Platelet Count 56 T/CUMM (130-400); Red Blood Count 3.51 MC/CUMM (3.8-5.5); Red Cell Distribution Width 15.7 % (9.3-17.3); White Blood Count 12.3 T/CUMM (4-12)
[2021-11-21 03:52] LABS: Hypochromia Slight; Lymphocytes 7 % (20-55); Microcytosis Slight; Platelet Estimate Decreased; Total Cells Counted 100
[2021-11-21 03:57] LABS: Calcium 8.2 MG/DL (8.5-10.1); Osmolality,Calculated 268.8 MOS/KG (273-304); Potassium 3.4 MMOL/L (3.5-5.1)
[2021-11-21] MEDS ORDERED: MAGNESIUM SULF RIDER 4 GM/100 ML PREMIX IV PRN (04:38)
[2021-11-21] MEDS: POTASSIUM CHLORIDE RIDER 20 MEQ/100 ML PREMIX IV PRN ×2 (04:55→20:32)
[2021-11-21] MEDS: POTASSIUM CHLORIDE RIDER 10 MEQ/100 ML PREMIX IV PRN (05:56)
[2021-11-21] MEDS: DORNASE ALFA 2.5 MG/2.5 ML VIAL RESP TX SCH ×2 (06:54→20:00)
[2021-11-21] MEDS: MICAFUNGIN 50 MG, MICAFUNGIN 100 MG in SODIUM CHLORIDE 0.9% 100 ML IV SCH (08:30)
[2021-11-21] MEDS: APIXABAN 5 MG TABLET PO SCH ×2 (08:32→20:01)
[2021-11-21] MEDS: SODIUM BICARBONATE 650 MG TABLET PO SCH (08:32)
[2021-11-21] MEDS: PANTOPRAZOLE 40 MG TABLET PO SCH (08:32)
[2021-11-21] MEDS: ANASTROZOLE 1 MG TABLET PO SCH (08:32)
[2021-11-21] MEDS: MENTHOL/ZINC OXIDE OINT 71 GM JAR TOP SCH ×2 (08:33→20:01)
[2021-11-21] MEDS: SODIUM CHLORIDE 1 GM TABLET PO SCH ×3 (09:10→20:01)
[2021-11-21] MEDS: cefTRIAXone 2,000 MG in SODIUM CHLORIDE 0.9% 100 ML IV SCH (17:02)
[2021-11-21 20:23] LABS: Calcium 8.5 MG/DL (8.5-10.1); Osmolality,Calculated 275.2 MOS/KG (273-304); Potassium 3.9 MMOL/L (3.5-5.1)
[2021-11-22] MEDS: ALBUTEROL 1.25 MG/3 ML NEB RESP TX SCH ×4 (00:17→19:33)
[2021-11-22 03:51] LABS: Basophils % 0.1 % (0.0-0.8); Eosinophils # 0.1 10*3/uL (0.0-0.87); Eosinophils % 0.8 % (0.00-10.9); Hematocrit 33.4 VOL% (35.7-47.0); Hemoglobin 10.4 GM/DL (12.0-16.0); Immature Granulocytes % 0.3 %; Immature Granulocytes Absolute 0.04 #; Lymphocytes # 0.6 10*3/uL (1.4-4.0); Lymphocytes % 4.7 % (21.3-54.2); Mean Corpuscular HGB Conc 31.1 GM/DL (32-36); Mean Corpuscular Volume 94.4 FL (87-102); Mean Platelet Volume 10.6 FL (9.6-12.0); Monocytes # 0.5 10*3/uL (0.11-0.8); Monocytes % 4.7 % (1.7-12.7); Neutrophils % 89.4 % (38.7-73.9); Red Blood Count 3.54 MC/CUMM (3.8-5.5); Red Cell Distribution Width 15.8 % (9.3-17.3); White Blood Count 11.6 T/CUMM (4-12)
[2021-11-22 03:54] LABS: Platelet Count 61 T/CUMM (130-400)
[2021-11-22 04:01] LABS: Calcium 8.3 MG/DL (8.5-10.1); Osmolality,Calculated 277.1 MOS/KG (273-304); Potassium 3.9 MMOL/L (3.5-5.1)
[2021-11-22 04:19] LABS: Hypochromia 1+; Lymphocytes 5 % (20-55); Platelet Estimate Decreased; Total Cells Counted 100
[2021-11-22 04:20] LABS: Microcytosis 1+
[2021-11-22] MEDS: POTASSIUM CHLORIDE RIDER 20 MEQ/100 ML PREMIX IV PRN (04:52)
[2021-11-22] MEDS: MAGNESIUM SULF RIDER 2 GM/50 ML PREMIX IV PRN (04:52)
[2021-11-22] MEDS: DORNASE ALFA 2.5 MG/2.5 ML VIAL RESP TX SCH ×2 (07:24→19:44)
[2021-11-22] MEDS ORDERED: MEGESTROL 400 MG/10 ML UDCUP PO SCH (09:00)
[2021-11-22] MEDS: ANASTROZOLE 1 MG TABLET PO SCH (09:06)
[2021-11-22] MEDS: APIXABAN 5 MG TABLET PO SCH ×2 (09:06→20:16)
[2021-11-22] MEDS: LINEZOLID 600 MG TABLET PO SCH ×2 (09:06→20:16)
[2021-11-22] MEDS: MENTHOL/ZINC OXIDE OINT 71 GM JAR TOP SCH ×2 (09:06→20:16)
[2021-11-22] MEDS: SODIUM CHLORIDE 1 GM TABLET PO SCH ×3 (09:06→20:16)
[2021-11-22] MEDS: PANTOPRAZOLE 40 MG TABLET PO SCH (09:06)
[2021-11-22] MEDS: cefTRIAXone 2,000 MG in SODIUM CHLORIDE 0.9% 100 ML IV SCH (18:49)
[2021-11-22] MEDS: METOPROLOL TARTRATE 50 MG TABLET PO SCH (20:16)
[2021-11-23] MEDS: ALBUTEROL 1.25 MG/3 ML NEB RESP TX SCH ×4 (00:12→19:42)
[2021-11-23 04:15] LABS: Basophils % 0.1 % (0.0-0.8); Eosinophils # 0.1 10*3/uL (0.0-0.87); Eosinophils % 1.1 % (0.00-10.9); Hemoglobin 9.9 GM/DL (12.0-16.0); Immature Granulocytes % 0.8 %; Immature Granulocytes Absolute 0.08 #; Lymphocytes # 0.5 10*3/uL (1.4-4.0); Lymphocytes % 4.5 % (21.3-54.2); Mean Corpuscular HGB Conc 30.9 GM/DL (32-36); Mean Corpuscular Volume 95.2 FL (87-102); Mean Platelet Volume 10.7 FL (9.6-12.0); Monocytes # 0.6 10*3/uL (0.11-0.8); Monocytes % 5.2 % (1.7-12.7); Neutrophils % 88.3 % (38.7-73.9); Platelet Count 73 T/CUMM (130-400); Red Blood Count 3.36 MC/CUMM (3.8-5.5); Red Cell Distribution Width 15.8 % (9.3-17.3); White Blood Count 10.6 T/CUMM (4-12)
[2021-11-23 04:30] LABS: Calcium 8.8 MG/DL (8.5-10.1); Potassium 3.7 MMOL/L (3.5-5.1)
[2021-11-23 04:46] LABS: Lymphocytes 2 % (20-55); Platelet Estimate Decreased; Total Cells Counted 100
[2021-11-23 04:47] LABS: Hypochromia Slight
[2021-11-23] MEDS: POTASSIUM CHLORIDE RIDER 10 MEQ/100 ML PREMIX IV PRN (06:10)
[2021-11-23] MEDS: DORNASE ALFA 2.5 MG/2.5 ML VIAL RESP TX SCH ×2 (07:30→19:59)
[2021-11-23] MEDS ORDERED: FUROSEMIDE 40 MG/4 ML VIAL IV ONE (08:06)
[2021-11-23] MEDS: SODIUM CHLORIDE 1 GM TABLET PO SCH (09:36)
[2021-11-23] MEDS: METOPROLOL TARTRATE 50 MG TABLET PO SCH ×2 (09:36→22:04)
[2021-11-23] MEDS: ANASTROZOLE 1 MG TABLET PO SCH (09:37)
[2021-11-23] MEDS: APIXABAN 5 MG TABLET PO SCH ×2 (09:37→22:04)
[2021-11-23] MEDS: LINEZOLID 600 MG TABLET PO SCH ×2 (09:37→22:04)
[2021-11-23] MEDS: PANTOPRAZOLE 40 MG TABLET PO SCH (09:37)
[2021-11-23] MEDS: ESCITALOPRAM 10 MG TABLET PO SCH (09:37)
[2021-11-23] MEDS: MENTHOL/ZINC OXIDE OINT 71 GM JAR TOP SCH ×2 (09:42→22:05)
[2021-11-23] MEDS: cefTRIAXone 2,000 MG in SODIUM CHLORIDE 0.9% 100 ML IV SCH (17:53)
[2021-11-24] MEDS: ALBUTEROL 1.25 MG/3 ML NEB RESP TX SCH ×4 (00:21→19:11)
[2021-11-24 03:53] LABS: Basophils % 0.1 % (0.0-0.8); Eosinophils # 0.1 10*3/uL (0.0-0.87); Eosinophils % 1.2 % (0.00-10.9); Hematocrit 31.8 VOL% (35.7-47.0); Hemoglobin 9.6 GM/DL (12.0-16.0); Immature Granulocytes % 0.8 %; Immature Granulocytes Absolute 0.08 #; Lymphocytes # 0.6 10*3/uL (1.4-4.0); Lymphocytes % 6.8 % (21.3-54.2); Mean Corpuscular HGB Conc 30.2 GM/DL (32-36); Mean Corpuscular Volume 95.8 FL (87-102); Mean Platelet Volume 11.6 FL (9.6-12.0); Monocytes # 0.5 10*3/uL (0.11-0.8); Monocytes % 5.4 % (1.7-12.7); Neutrophils % 85.7 % (38.7-73.9); Red Blood Count 3.32 MC/CUMM (3.8-5.5); White Blood Count 9.5 T/CUMM (4-12)
[2021-11-24 03:57] LABS: Platelet Count 71 T/CUMM (130-400)
[2021-11-24 04:10] LABS: Calcium 8.7 MG/DL (8.5-10.1); Osmolality,Calculated 287.5 MOS/KG (273-304); Potassium 3.3 MMOL/L (3.5-5.1)
[2021-11-24 04:34] LABS: Hypochromia 1+; Microcytosis 1+
[2021-11-24 04:35] LABS: Platelet Estimate Decreased; Target Cells Slight
[2021-11-24] MEDS: MAGNESIUM SULF RIDER 2 GM/50 ML PREMIX IV PRN (05:33)
[2021-11-24] MEDS: POTASSIUM CHLORIDE RIDER 20 MEQ/100 ML PREMIX IV PRN (05:34)
[2021-11-24] MEDS: DORNASE ALFA 2.5 MG/2.5 ML VIAL RESP TX SCH ×2 (07:40→19:23)
[2021-11-24] MEDS ORDERED: POTASSIUM BICARB EFFERVESCENT 20 MEQ TAB.EFF PER TUBE ONE (09:43)
[2021-11-24] MEDS: LINEZOLID 600 MG TABLET PO SCH ×2 (11:58→21:41)
[2021-11-24] MEDS: ANASTROZOLE 1 MG TABLET PO SCH (11:59)
[2021-11-24] MEDS: METOPROLOL TARTRATE 50 MG TABLET PO SCH (11:59)
[2021-11-24] MEDS: APIXABAN 5 MG TABLET PO SCH ×2 (11:59→21:41)
[2021-11-24] MEDS: PANTOPRAZOLE 40 MG TABLET PO SCH (11:59)
[2021-11-24] MEDS: SODIUM CHLORIDE 1 GM TABLET PO SCH (11:59)
[2021-11-24] MEDS: ESCITALOPRAM 10 MG TABLET PO SCH (11:59)
[2021-11-24] MEDS: FUROSEMIDE 40 MG TABLET PO SCH (11:59)
[2021-11-24] MEDS: SPIRONOLACTONE 25 MG TABLET PO SCH (12:00)
[2021-11-24] MEDS: MENTHOL/ZINC OXIDE OINT 71 GM JAR TOP SCH ×2 (12:01→21:42)
[2021-11-24 15:39] LABS: Glucose,Pleural Fluid 137 MG/DL; LDH,Body Fluid 59 U/L; Total Protein,Body Fluid < 2.0 G/DL
[2021-11-24 16:33] LABS: Lymphocytes,Pleural Fluid 78 %; Monocytes,Pleural Fluid 6 %; Neutrophils,Pleural Fluid 16 %
[2021-11-24 16:34] LABS: RBC,Pleural Fluid 569 T/CUMM
[2021-11-24] MEDS: cefTRIAXone 2,000 MG in SODIUM CHLORIDE 0.9% 100 ML IV SCH (17:51)
[2021-11-24 19:43] LABS: ABG Base Excess 12.4 MMOL/L (-2.5-2.5); ABG HCO3 36.2 MMOL/L (20-26); ABG PH 7.473 (7.35-7.45); ABG PO2 78.6 MM HG (80-95); ABG TCO2 34.2 MMOL/L (23-27)
[2021-11-24] MEDS: carvediloL 6.25 MG TABLET PO SCH (21:41)
[2021-11-25] MEDS: ALBUTEROL 1.25 MG/3 ML NEB RESP TX SCH ×4 (00:19→18:54)
[2021-11-25 04:28] LABS: Basophils % 0.1 % (0.0-0.8); Eosinophils # 0.1 10*3/uL (0.0-0.87); Eosinophils % 1.1 % (0.00-10.9); Hematocrit 33.2 VOL% (35.7-47.0); Immature Granulocytes % 1.1 %; Immature Granulocytes Absolute 0.09 #; Lymphocytes # 0.7 10*3/uL (1.4-4.0); Lymphocytes % 7.7 % (21.3-54.2); Mean Corpuscular HGB Conc 30.1 GM/DL (32-36); Mean Platelet Volume 11.9 FL (9.6-12.0); Monocytes # 0.5 10*3/uL (0.11-0.8); Monocytes % 5.3 % (1.7-12.7); Neutrophils % 84.7 % (38.7-73.9); Red Blood Count 3.46 MC/CUMM (3.8-5.5); Red Cell Distribution Width 16.3 % (9.3-17.3); White Blood Count 8.5 T/CUMM (4-12)
[2021-11-25 04:36] LABS: Platelet Count 71 T/CUMM (130-400)
[2021-11-25 04:49] LABS: Hypochromia 1+
[2021-11-25 04:50] LABS: Anisocytosis 1+; Microcytosis 1+
[2021-11-25 04:51] LABS: Ovalocytes Slight; Platelet Estimate Decreased
[2021-11-25 04:57] LABS: Calcium 8.8 MG/DL (8.5-10.1); Osmolality,Calculated 294.3 MOS/KG (273-304); Potassium 3.7 MMOL/L (3.5-5.1)
[2021-11-25] MEDS: DORNASE ALFA 2.5 MG/2.5 ML VIAL RESP TX SCH ×2 (07:15→18:54)
[2021-11-25] MEDS: LINEZOLID 600 MG TABLET PO SCH ×2 (08:32→20:01)
[2021-11-25] MEDS: carvediloL 6.25 MG TABLET PO SCH ×2 (08:32→20:01)
[2021-11-25] MEDS: SODIUM CHLORIDE 1 GM TABLET PO SCH (08:32)
[2021-11-25] MEDS: ESCITALOPRAM 10 MG TABLET PO SCH (08:32)
[2021-11-25] MEDS: MAGNESIUM CHLORIDE 64 MG TABLET PO SCH (08:32)
[2021-11-25] MEDS: FUROSEMIDE 40 MG TABLET PO SCH (08:32)
[2021-11-25] MEDS: SPIRONOLACTONE 25 MG TABLET PO SCH (08:33)
[2021-11-25] MEDS: APIXABAN 5 MG TABLET PO SCH ×2 (08:33→20:01)
[2021-11-25] MEDS: PANTOPRAZOLE 40 MG TABLET PO SCH (08:33)
[2021-11-25] MEDS: ANASTROZOLE 1 MG TABLET PO SCH (08:33)
[2021-11-25] MEDS: MENTHOL/ZINC OXIDE OINT 71 GM JAR TOP SCH ×2 (09:37→20:01)
[2021-11-25] MEDS: cefTRIAXone 2,000 MG in SODIUM CHLORIDE 0.9% 100 ML IV SCH (18:04)
[2021-11-26] MEDS: ALBUTEROL 1.25 MG/3 ML NEB RESP TX SCH ×5 (00:16→23:10)
[2021-11-26 04:31] LABS: Basophils % 0.1 % (0.0-0.8); Eosinophils # 0.1 10*3/uL (0.0-0.87); Eosinophils % 1.8 % (0.00-10.9); Hematocrit 32.5 VOL% (35.7-47.0); Hemoglobin 9.9 GM/DL (12.0-16.0); Immature Granulocytes % 1.1 %; Immature Granulocytes Absolute 0.08 #; Lymphocytes # 0.7 10*3/uL (1.4-4.0); Lymphocytes % 9.5 % (21.3-54.2); Mean Corpuscular HGB Conc 30.5 GM/DL (32-36); Mean Corpuscular Volume 96.4 FL (87-102); Mean Platelet Volume 11.5 FL (9.6-12.0); Monocytes # 0.4 10*3/uL (0.11-0.8); Monocytes % 4.9 % (1.7-12.7); Neutrophils % 82.6 % (38.7-73.9); Platelet Count 73 T/CUMM (130-400); Red Blood Count 3.37 MC/CUMM (3.8-5.5); Red Cell Distribution Width 16.4 % (9.3-17.3); White Blood Count 7.6 T/CUMM (4-12)
[2021-11-26] MEDS: POTASSIUM CHLORIDE RIDER 20 MEQ/100 ML PREMIX IV PRN (04:40)
[2021-11-26 04:43] LABS: Calcium 8.7 MG/DL (8.5-10.1); Osmolality,Calculated 293.3 MOS/KG (273-304); Potassium 3.6 MMOL/L (3.5-5.1)
[2021-11-26 04:58] LABS: Hypochromia Slight; Microcytosis Slight; Platelet Estimate Decreased
[2021-11-26] MEDS: DORNASE ALFA 2.5 MG/2.5 ML VIAL RESP TX SCH ×2 (07:15→19:38)
[2021-11-26] MEDS: MAGNESIUM CHLORIDE 64 MG TABLET PO SCH (08:09)
[2021-11-26] MEDS: ANASTROZOLE 1 MG TABLET PO SCH (08:10)
[2021-11-26] MEDS: PANTOPRAZOLE 40 MG TABLET PO SCH (08:10)
[2021-11-26] MEDS: SODIUM CHLORIDE 1 GM TABLET PO SCH (08:10)
[2021-11-26] MEDS: LINEZOLID 600 MG TABLET PO SCH ×2 (08:10→20:48)
[2021-11-26] MEDS: APIXABAN 5 MG TABLET PO SCH ×2 (08:10→20:48)
[2021-11-26] MEDS: ESCITALOPRAM 10 MG TABLET PO SCH (08:11)
[2021-11-26] MEDS: FUROSEMIDE 40 MG TABLET PO SCH ×2 (08:11→09:01)
[2021-11-26] MEDS: SPIRONOLACTONE 25 MG TABLET PO SCH (08:11)
[2021-11-26] MEDS: MENTHOL/ZINC OXIDE OINT 71 GM JAR TOP SCH ×2 (08:12→20:48)
[2021-11-26] MEDS: carvediloL 6.25 MG TABLET PO SCH ×2 (08:12→20:48)
[2021-11-26] MEDS: cefTRIAXone 2,000 MG in SODIUM CHLORIDE 0.9% 100 ML IV SCH (18:20)
[2021-11-27] MEDS: ALBUTEROL 1.25 MG/3 ML NEB RESP TX SCH ×3 (07:43→19:12)
[2021-11-27] MEDS: DORNASE ALFA 2.5 MG/2.5 ML VIAL RESP TX SCH ×2 (07:43→19:17)
[2021-11-27] MEDS: MAGNESIUM CHLORIDE 64 MG TABLET PO SCH (08:47)
[2021-11-27] MEDS: SODIUM CHLORIDE 1 GM TABLET PO SCH (08:48)
[2021-11-27] MEDS: PANTOPRAZOLE 40 MG TABLET PO SCH (08:48)
[2021-11-27] MEDS: FUROSEMIDE 40 MG TABLET PO SCH (08:48)
[2021-11-27] MEDS: LINEZOLID 600 MG TABLET PO SCH ×2 (08:49→20:30)
[2021-11-27] MEDS: ESCITALOPRAM 10 MG TABLET PO SCH (08:49)
[2021-11-27] MEDS: SPIRONOLACTONE 25 MG TABLET PO SCH (08:49)
[2021-11-27] MEDS: ANASTROZOLE 1 MG TABLET PO SCH (08:49)
[2021-11-27] MEDS: carvediloL 6.25 MG TABLET PO SCH ×2 (08:49→20:30)
[2021-11-27] MEDS: MENTHOL/ZINC OXIDE OINT 71 GM JAR TOP SCH ×2 (08:50→21:00)
[2021-11-27] MEDS: APIXABAN 5 MG TABLET PO SCH ×2 (08:50→20:30)
[2021-11-27] MEDS: cefTRIAXone 2,000 MG in SODIUM CHLORIDE 0.9% 100 ML IV SCH (18:14)
[2021-11-28] MEDS: ALBUTEROL 1.25 MG/3 ML NEB RESP TX SCH ×4 (01:50→19:08)
[2021-11-28] MEDS: DORNASE ALFA 2.5 MG/2.5 ML VIAL RESP TX SCH (07:25)
[2021-11-28] MEDS ORDERED: TUBERCULIN SKIN TEST 0.1 ML SYRINGE INTRADERM ONE (08:00)
[2021-11-28] MEDS: PANTOPRAZOLE 40 MG TABLET PO SCH (08:47)
[2021-11-28] MEDS: MAGNESIUM CHLORIDE 64 MG TABLET PO SCH (08:47)
[2021-11-28] MEDS: carvediloL 6.25 MG TABLET PO SCH ×2 (08:47→20:22)
[2021-11-28] MEDS: ANASTROZOLE 1 MG TABLET PO SCH (08:47)
[2021-11-28] MEDS: SODIUM CHLORIDE 1 GM TABLET PO SCH (08:47)
[2021-11-28] MEDS: APIXABAN 5 MG TABLET PO SCH ×2 (08:47→20:23)
[2021-11-28] MEDS: LINEZOLID 600 MG TABLET PO SCH ×2 (08:47→20:22)
[2021-11-28] MEDS: cefTRIAXone 2,000 MG in SODIUM CHLORIDE 0.9% 100 ML IV SCH (08:48)
[2021-11-28] MEDS: ESCITALOPRAM 10 MG TABLET PO SCH (08:48)
[2021-11-28] MEDS: FUROSEMIDE 40 MG TABLET PO SCH (08:48)
[2021-11-28] MEDS: SPIRONOLACTONE 25 MG TABLET PO SCH (08:48)
[2021-11-28] MEDS: MENTHOL/ZINC OXIDE OINT 71 GM JAR TOP SCH ×2 (13:39→20:22)
[2021-11-28] MEDS: metOLazone 2.5 MG TABLET PO SCH (15:10)
[2021-11-29] MEDS: ALBUTEROL 1.25 MG/3 ML NEB RESP TX SCH ×4 (00:07→19:05)
[2021-11-29] MEDS: metOLazone 2.5 MG TABLET PO SCH (09:19)
[2021-11-29] MEDS: PANTOPRAZOLE 40 MG TABLET PO SCH (09:19)
[2021-11-29] MEDS: MAGNESIUM CHLORIDE 64 MG TABLET PO SCH (09:19)
[2021-11-29] MEDS: carvediloL 6.25 MG TABLET PO SCH ×2 (09:19→20:52)
[2021-11-29] MEDS: FUROSEMIDE 40 MG TABLET PO SCH (09:19)
[2021-11-29] MEDS: ANASTROZOLE 1 MG TABLET PO SCH (09:19)
[2021-11-29] MEDS: APIXABAN 5 MG TABLET PO SCH ×2 (09:19→20:52)
[2021-11-29] MEDS: ESCITALOPRAM 10 MG TABLET PO SCH (09:19)
[2021-11-29] MEDS: SODIUM CHLORIDE 1 GM TABLET PO SCH (09:19)
[2021-11-29] MEDS: cefTRIAXone 2,000 MG in SODIUM CHLORIDE 0.9% 100 ML IV SCH (09:20)
[2021-11-29] MEDS: LINEZOLID 600 MG TABLET PO SCH (09:20)
[2021-11-29] MEDS: SPIRONOLACTONE 25 MG TABLET PO SCH (09:20)
[2021-11-29] MEDS: MENTHOL/ZINC OXIDE OINT 71 GM JAR TOP SCH ×2 (09:26→20:52)
[2021-11-30] MEDS: ALBUTEROL 1.25 MG/3 ML NEB RESP TX SCH ×4 (00:09→19:30)
[2021-11-30 05:34] LABS: Basophils % 0.3 % (0.0-0.8); Eosinophils # 0.1 10*3/uL (0.0-0.87); Eosinophils % 1.9 % (0.00-10.9); Hematocrit 28.4 VOL% (35.7-47.0); Hemoglobin 8.9 GM/DL (12.0-16.0); Lymphocytes # 0.7 10*3/uL (1.4-4.0); Lymphocytes % 11.8 % (21.3-54.2); Mean Corpuscular HGB Conc 31.3 GM/DL (32-36); Mean Platelet Volume 11.8 FL (9.6-12.0); Monocytes # 0.3 10*3/uL (0.11-0.8); Monocytes % 4.7 % (1.7-12.7); Neutrophils % 80.8 % (38.7-73.9); Platelet Count 89 T/CUMM (130-400); Red Blood Count 2.99 MC/CUMM (3.8-5.5); Red Cell Distribution Width 17.2 % (9.3-17.3); White Blood Count 5.8 T/CUMM (4-12)
[2021-11-30 05:52] LABS: Calcium 8.8 MG/DL (8.5-10.1); Osmolality,Calculated 284.5 MOS/KG (273-304); Potassium 3.3 MMOL/L (3.5-5.1)
[2021-11-30] MEDS: SODIUM CHLORIDE 1 GM TABLET PO SCH (08:55)
[2021-11-30] MEDS: MENTHOL/ZINC OXIDE OINT 71 GM JAR TOP SCH ×2 (08:56→21:19)
[2021-11-30] MEDS: SPIRONOLACTONE 25 MG TABLET PO SCH (08:56)
[2021-11-30] MEDS: carvediloL 6.25 MG TABLET PO SCH ×2 (08:56→21:18)
[2021-11-30] MEDS: PANTOPRAZOLE 40 MG TABLET PO SCH (08:56)
[2021-11-30] MEDS: cefTRIAXone 2,000 MG in SODIUM CHLORIDE 0.9% 100 ML IV SCH (08:56)
[2021-11-30] MEDS: ANASTROZOLE 1 MG TABLET PO SCH (08:56)
[2021-11-30] MEDS: MAGNESIUM CHLORIDE 64 MG TABLET PO SCH (08:56)
[2021-11-30] MEDS: APIXABAN 5 MG TABLET PO SCH ×2 (08:56→21:18)
[2021-11-30] MEDS: metOLazone 2.5 MG TABLET PO SCH (08:56)
[2021-11-30] MEDS: FUROSEMIDE 40 MG TABLET PO SCH (08:56)
[2021-11-30] MEDS: ESCITALOPRAM 10 MG TABLET PO SCH (08:56)
[2021-11-30] MEDS: POTASSIUM CHLORIDE RIDER 10 MEQ/100 ML PREMIX IV PRN ×4 (15:45→20:38)
[2021-12-01 06:38] LABS: Basophils % 0.4 % (0.0-0.8); Eosinophils # 0.1 10*3/uL (0.0-0.87); Eosinophils % 2.2 % (0.00-10.9); Hematocrit 28.1 VOL% (35.7-47.0); Hemoglobin 8.7 GM/DL (12.0-16.0); Lymphocytes # 0.7 10*3/uL (1.4-4.0); Lymphocytes % 13.5 % (21.3-54.2); Mean Corpuscular Volume 96.2 FL (87-102); Mean Platelet Volume 11.9 FL (9.6-12.0); Monocytes # 0.3 10*3/uL (0.11-0.8); Monocytes % 6.4 % (1.7-12.7); Neutrophils % 76.9 % (38.7-73.9); Platelet Count 83 T/CUMM (130-400); Red Blood Count 2.92 MC/CUMM (3.8-5.5); Red Cell Distribution Width 17.2 % (9.3-17.3)
[2021-12-01 07:03] LABS: Potassium 3.4 MMOL/L (3.5-5.1)
[2021-12-01] MEDS: ALBUTEROL 1.25 MG/3 ML NEB RESP TX SCH ×6 (07:11→23:55)
[2021-12-01] MEDS: metOLazone 2.5 MG TABLET PO SCH (10:27)
[2021-12-01] MEDS: SODIUM CHLORIDE 1 GM TABLET PO SCH (10:27)
[2021-12-01] MEDS: carvediloL 6.25 MG TABLET PO SCH ×2 (10:27→21:56)
[2021-12-01] MEDS: PANTOPRAZOLE 40 MG TABLET PO SCH (10:28)
[2021-12-01] MEDS: MAGNESIUM CHLORIDE 64 MG TABLET PO SCH (10:28)
[2021-12-01] MEDS: ESCITALOPRAM 10 MG TABLET PO SCH (10:28)
[2021-12-01] MEDS: ANASTROZOLE 1 MG TABLET PO SCH (10:28)
[2021-12-01] MEDS: SPIRONOLACTONE 25 MG TABLET PO SCH (10:28)
[2021-12-01] MEDS: POTASSIUM CHLORIDE RIDER 10 MEQ/100 ML PREMIX IV PRN ×3 (10:28→14:20)
[2021-12-01] MEDS: APIXABAN 5 MG TABLET PO SCH ×2 (10:28→21:56)
[2021-12-01] MEDS: MENTHOL/ZINC OXIDE OINT 71 GM JAR TOP SCH ×2 (10:29→22:00)
[2021-12-01] MEDS: FUROSEMIDE 40 MG TABLET PO SCH (18:18)
[2021-12-02] MEDS: ALBUTEROL 1.25 MG/3 ML NEB RESP TX SCH ×3 (00:41→14:12)
[2021-12-02 06:50] LABS: Basophils % 0.2 % (0.0-0.8); Eosinophils # 0.1 10*3/uL (0.0-0.87); Eosinophils % 2.4 % (0.00-10.9); Hematocrit 26.8 VOL% (35.7-47.0); Hemoglobin 8.5 GM/DL (12.0-16.0); Immature Granulocytes % 0.4 %; Immature Granulocytes Absolute 0.02 #; Lymphocytes # 0.7 10*3/uL (1.4-4.0); Lymphocytes % 15.4 % (21.3-54.2); Mean Corpuscular HGB Conc 31.7 GM/DL (32-36); Mean Platelet Volume 11.6 FL (9.6-12.0); Monocytes # 0.4 10*3/uL (0.11-0.8); Monocytes % 9.2 % (1.7-12.7); Neutrophils % 72.4 % (38.7-73.9); Platelet Count 93 T/CUMM (130-400); Red Blood Count 2.82 MC/CUMM (3.8-5.5); Red Cell Distribution Width 17.3 % (9.3-17.3); White Blood Count 4.7 T/CUMM (4-12)
[2021-12-02 07:30] LABS: Anisocytosis 1+; Platelet Estimate Decreased
[2021-12-02 07:31] LABS: Macrocytosis Slight
[2021-12-02 09:04] LABS: Calcium 8.9 MG/DL (8.5-10.1); Osmolality,Calculated 276.8 MOS/KG (273-304); Potassium 3.4 MMOL/L (3.5-5.1)
[2021-12-02] MEDS: APIXABAN 5 MG TABLET PO SCH (09:15)
[2021-12-02] MEDS: metOLazone 2.5 MG TABLET PO SCH (09:15)
[2021-12-02] MEDS: PANTOPRAZOLE 40 MG TABLET PO SCH (09:16)
[2021-12-02] MEDS: carvediloL 6.25 MG TABLET PO SCH (09:16)
[2021-12-02] MEDS: SPIRONOLACTONE 25 MG TABLET PO SCH (09:16)
[2021-12-02] MEDS: FUROSEMIDE 40 MG TABLET PO SCH (09:16)
[2021-12-02] MEDS: MAGNESIUM CHLORIDE 64 MG TABLET PO SCH (09:17)
[2021-12-02] MEDS: ESCITALOPRAM 10 MG TABLET PO SCH (09:17)
[2021-12-02] MEDS: ANASTROZOLE 1 MG TABLET PO SCH (09:17)
[2021-12-02] MEDS: SODIUM CHLORIDE 1 GM TABLET PO SCH (09:17)
[2021-12-02] MEDS: MENTHOL/ZINC OXIDE OINT 71 GM JAR TOP SCH (09:18)
[2021-12-02] MEDS: POTASSIUM CHLORIDE RIDER 20 MEQ/100 ML PREMIX IV PRN (09:55)
[2021-12-02 16:26] VITALS: BP 114/51
== END 2021-12-02 16:45 | DRG 871 ==
LOC: N.ICU 12:11 → SUATTDRO 12:11 → N.5E 11-27 14:04
PROVIDERS: ADMIT Internal Medicine; ATTEND Internal Medicine

== ENCOUNTER 2022-01-29 21:25 | Inpatient (IN) ==
[2022-01-29 22:13] LABS: Basophils % 0.3 % (0.0-0.8); Eosinophils # 0.1 10*3/uL (0.0-0.87); Eosinophils % 0.5 % (0.00-10.9); Hematocrit 31.2 VOL% (35.7-47.0); Hemoglobin 9.5 GM/DL (12.0-16.0); Immature Granulocytes % 0.6 %; Immature Granulocytes Absolute 0.06 #; Lymphocytes # 0.8 10*3/uL (1.4-4.0); Lymphocytes % 8.1 % (21.3-54.2); Mean Corpuscular HGB Conc 30.4 GM/DL (32-36); Mean Corpuscular Volume 89.7 FL (87-102); Mean Platelet Volume 11.4 FL (9.6-12.0); Monocytes # 0.7 10*3/uL (0.11-0.8); Monocytes % 7.2 % (1.7-12.7); Neutrophils % 83.3 % (38.7-73.9); Platelet Count 309 T/CUMM (130-400); Red Blood Count 3.48 MC/CUMM (3.8-5.5); Red Cell Distribution Width 16.1 % (9.3-17.3); White Blood Count 10.1 T/CUMM (4-12)
[2022-01-29 22:36] LABS: Calcium 10.2 MG/DL (8.5-10.1); Osmolality,Calculated 282.2 MOS/KG (273-304); Potassium 3.6 MMOL/L (3.5-5.1)
[2022-01-29] MEDS ORDERED: SODIUM CHLORIDE 0.9% 1,000 ML IV STA (22:59)
[2022-01-30] MEDS ORDERED: SODIUM CHLORIDE 0.9% 1,000 ML IV STA (01:22)
[2022-01-30] MEDS ORDERED: AZITHROMYCIN INJ 500 MG in SODIUM CHLORIDE 0.9% 250 ML IV STA (01:37)
[2022-01-30] MEDS ORDERED: cefTRIAXone 1,000 MG in SODIUM CHLORIDE 0.9% 100 ML IV STA (01:37)
[2022-01-30 02:54] LABS: Bacteria,Urine Occasional /HPF (Few); Mucus,Urine Occasional /LPF (Occasional); RBC,Urine <1 /HPF (0-4); Urine Appearance Clear (Clear); Urine Color Yellow (Yellow)
[2022-01-30 02:55] LABS: Bilirubin,Urine Negative (Negative); Blood, Urine Negative (Negative); Glucose,Urine (UA) Negative (Negative); Ketones,Urine Negative (Negative); Nitrite,Urine Negative (Negative); Protein,Urine Negative (Negative); Urine Urobilinogen 0.2 eU/dL (<2.0)
[2022-01-30] MEDS ORDERED: ALBUTEROL 2.5 MG/3 ML NEB RESP TX PRN (04:20)
[2022-01-30] MEDS ORDERED: DEXTROSE 10% 250 ML BAG IV PRN (04:30)
[2022-01-30] MEDS ORDERED: DOCUSATE SODIUM 100 MG CAPSULE PO PRN (04:30)
[2022-01-30] MEDS ORDERED: GLUCAGON 1 MG VIAL IM PRN (04:30)
[2022-01-30] MEDS ORDERED: ONDANSETRON 4 MG/2 ML VIAL IV PRN (04:30)
[2022-01-30] MEDS ORDERED: MAGNESIUM SULF RIDER 4 GM/100 ML PREMIX IV PRN (04:38)
[2022-01-30] MEDS: PHENYLEPHRINE DRIP 40 MG/250 ML PREMIX IV PRN (05:07)
[2022-01-30] MEDS: LACTATED RINGERS 1,000 ML IV SCH ×2 (05:08→14:49)
[2022-01-30] MEDS: MAGNESIUM SULF RIDER 2 GM/50 ML PREMIX IV PRN (05:58)
[2022-01-30] MEDS: HYDROCORTISONE 100 MG VIAL IV SCH ×3 (05:58→20:36)
[2022-01-30 06:20] LABS: Basophils % 0.2 % (0.0-0.8); Eosinophils # 0.1 10*3/uL (0.0-0.87); Eosinophils % 0.7 % (0.00-10.9); Hematocrit 27.3 VOL% (35.7-47.0); Hemoglobin 8.4 GM/DL (12.0-16.0); Immature Granulocytes % 0.6 %; Immature Granulocytes Absolute 0.06 #; Mean Corpuscular HGB Conc 30.8 GM/DL (32-36); Mean Corpuscular Volume 89.5 FL (87-102); Monocytes # 0.7 10*3/uL (0.11-0.8); Monocytes % 6.3 % (1.7-12.7); Neutrophils % 83.2 % (38.7-73.9); Platelet Count 343 T/CUMM (130-400); Red Blood Count 3.05 MC/CUMM (3.8-5.5); White Blood Count 10.7 T/CUMM (4-12)
[2022-01-30 06:30] LABS: INR 1.2
[2022-01-30 06:35] LABS: Alanine Aminotransferase < 9 U/L (13-56); Albumin 1.7 G/DL (3.4-5.0); Alkaline Phosphatase 51 U/L (45-117); Aspartate Amino Transferase 8 U/L (0-37); Bilirubin,Total < 0.39 MG/DL (0.20-1.00); Blood Urea Nitrogen 39 MG/DL (7-18); Carbon Dioxide 33 MMOL/L (21-32); Chloride 98 MMOL/L (98-107); Glucose 105 MG/DL (74-106); Potassium 3.2 MMOL/L (3.5-5.1); Sodium 136 MMOL/L (136-145); Total Protein 6.7 G/DL (6.4-8.2)
[2022-01-30] MEDS: ANASTROZOLE 1 MG TABLET PO SCH (08:02)
[2022-01-30] MEDS: SODIUM CHLORIDE 1 GM TABLET PO SCH (08:02)
[2022-01-30] MEDS: ESCITALOPRAM 10 MG TABLET PO SCH (08:02)
[2022-01-30] MEDS: POLYETHYLENE GLYCOL POWDER 17 GM PACK PO SCH ×2 (08:07→20:26)
[2022-01-30] MEDS: POTASSIUM CHLORIDE 20 MEQ TABLET PO SCH ×2 (08:07→20:27)
[2022-01-30] MEDS: MAGNESIUM OXIDE 400 MG TABLET PO SCH ×2 (08:07→20:27)
[2022-01-30 08:13] LABS: Albumin 1.7 G/DL (3.4-5.0)
[2022-01-30] MEDS: INSULIN LISPRO 100 UNIT/ML SUBCUT SCH ×4 (08:50→20:26)
[2022-01-30] MEDS ORDERED: ERGOCALCIFEROL 50,000 UNIT CAPSULE PO SCH (09:00)
[2022-01-30] MEDS ORDERED: ZINC OXIDE PASTE 113 GM TUBE TOP PRN (13:09)
[2022-01-30] MEDS: MIRTAZAPINE 15 MG TABLET PO SCH (20:40)
[2022-01-31] MEDS: cefTRIAXone 1,000 MG in SODIUM CHLORIDE 0.9% 100 ML IV SCH (00:26)
[2022-01-31] MEDS: LACTATED RINGERS 1,000 ML IV SCH (00:52)
[2022-01-31] MEDS: PHENYLEPHRINE DRIP 40 MG/250 ML PREMIX IV PRN (03:23)
[2022-01-31 04:28] LABS: Basophils % 0.1 % (0.0-0.8); Hematocrit 28.7 VOL% (35.7-47.0); Hemoglobin 8.7 GM/DL (12.0-16.0); Immature Granulocytes % 0.7 %; Immature Granulocytes Absolute 0.07 #; Lymphocytes # 0.6 10*3/uL (1.4-4.0); Lymphocytes % 5.8 % (21.3-54.2); Mean Corpuscular HGB Conc 30.3 GM/DL (32-36); Mean Corpuscular Volume 90.3 FL (87-102); Mean Platelet Volume 10.6 FL (9.6-12.0); Monocytes # 0.2 10*3/uL (0.11-0.8); Monocytes % 2.1 % (1.7-12.7); Neutrophils % 91.3 % (38.7-73.9); Platelet Count 382 T/CUMM (130-400); Red Blood Count 3.18 MC/CUMM (3.8-5.5); Red Cell Distribution Width 15.8 % (9.3-17.3); White Blood Count 9.6 T/CUMM (4-12)
[2022-01-31] MEDS: HYDROCORTISONE 100 MG VIAL IV SCH (04:35)
[2022-01-31 04:47] LABS: Alanine Aminotransferase < 9 U/L (13-56); Albumin 1.7 G/DL (3.4-5.0); Alkaline Phosphatase 56 U/L (45-117); Aspartate Amino Transferase 7 U/L (0-37); Bilirubin,Total < 0.39 MG/DL (0.20-1.00); Blood Urea Nitrogen 33 MG/DL (7-18); Calcium 10.5 MG/DL (8.5-10.1); Carbon Dioxide 33 MMOL/L (21-32); Chloride 99 MMOL/L (98-107); Glucose 153 MG/DL (74-106); Osmolality,Calculated 282.8 MOS/KG (273-304); Potassium 3.5 MMOL/L (3.5-5.1); Sodium 137 MMOL/L (136-145); Total Protein 6.8 G/DL (6.4-8.2)
[2022-01-31 05:02] LABS: Hypochromia 1+; Lymphocytes 5 % (20-55); Total Cells Counted 100
[2022-01-31 05:03] LABS: Microcytosis Slight
[2022-01-31] MEDS: MAGNESIUM SULF RIDER 2 GM/50 ML PREMIX IV PRN (06:15)
[2022-01-31 09:27] LABS: Total Protein,Body Fluid 4.4 G/DL
[2022-01-31] MEDS: ANASTROZOLE 1 MG TABLET PO SCH (09:50)
[2022-01-31] MEDS: MAGNESIUM OXIDE 400 MG TABLET PO SCH ×2 (09:50→20:48)
[2022-01-31] MEDS: ESCITALOPRAM 10 MG TABLET PO SCH (09:50)
[2022-01-31] MEDS: SODIUM CHLORIDE 1 GM TABLET PO SCH (09:50)
[2022-01-31] MEDS: POLYETHYLENE GLYCOL POWDER 17 GM PACK PO SCH ×2 (09:50→20:47)
[2022-01-31] MEDS: INSULIN LISPRO 100 UNIT/ML SUBCUT SCH ×4 (09:50→20:48)
[2022-01-31] MEDS: POTASSIUM CHLORIDE 20 MEQ TABLET PO SCH ×2 (09:50→20:48)
[2022-01-31] MEDS ORDERED: HYDROCORTISONE 100 MG VIAL IV SCH (16:00)
[2022-01-31] MEDS: ACETAMINOPHEN 325 MG TABLET PO PRN ×2 (17:44→21:00)
[2022-01-31] MEDS: HYDROCORTISONE 10 MG TABLET PO SCH (20:48)
[2022-01-31] MEDS: MIRTAZAPINE 15 MG TABLET PO SCH (20:48)
[2022-02-01] MEDS: cefTRIAXone 1,000 MG in SODIUM CHLORIDE 0.9% 100 ML IV SCH (00:42)
[2022-02-01 05:01] LABS: Basophils % 0.1 % (0.0-0.8); Eosinophils # 0.1 10*3/uL (0.0-0.87); Eosinophils % 0.6 % (0.00-10.9); Hematocrit 31.6 VOL% (35.7-47.0); Hemoglobin 9.4 GM/DL (12.0-16.0); Immature Granulocytes % 0.8 %; Immature Granulocytes Absolute 0.06 #; Lymphocytes # 0.7 10*3/uL (1.4-4.0); Lymphocytes % 8.9 % (21.3-54.2); Mean Corpuscular HGB Conc 29.7 GM/DL (32-36); Mean Corpuscular Volume 91.9 FL (87-102); Monocytes # 0.3 10*3/uL (0.11-0.8); Monocytes % 4.2 % (1.7-12.7); Neutrophils % 85.4 % (38.7-73.9); Platelet Count 335 T/CUMM (130-400); Red Blood Count 3.44 MC/CUMM (3.8-5.5); Red Cell Distribution Width 15.9 % (9.3-17.3); White Blood Count 7.9 T/CUMM (4-12)
[2022-02-01 05:28] LABS: Calcium 10.4 MG/DL (8.5-10.1); Osmolality,Calculated 274.7 MOS/KG (273-304); Potassium 4.7 MMOL/L (3.5-5.1)
[2022-02-01] MEDS: INSULIN LISPRO 100 UNIT/ML SUBCUT SCH ×4 (08:06→21:05)
[2022-02-01] MEDS: HYDROCORTISONE 10 MG TABLET PO SCH ×2 (08:07→21:05)
[2022-02-01] MEDS: ESCITALOPRAM 10 MG TABLET PO SCH (08:08)
[2022-02-01] MEDS: MAGNESIUM OXIDE 400 MG TABLET PO SCH ×2 (08:08→21:05)
[2022-02-01] MEDS: ANASTROZOLE 1 MG TABLET PO SCH (08:08)
[2022-02-01] MEDS: SODIUM CHLORIDE 1 GM TABLET PO SCH (08:08)
[2022-02-01] MEDS: POLYETHYLENE GLYCOL POWDER 17 GM PACK PO SCH ×2 (08:08→21:05)
[2022-02-01] MEDS: POTASSIUM CHLORIDE 20 MEQ TABLET PO SCH ×2 (08:08→21:05)
[2022-02-01] MEDS ORDERED: VANCOMYCIN INJ 1,000 MG in SODIUM CHLORIDE 0.9% 250 ML IV SCH (10:00)
[2022-02-01] MEDS: SODIUM CHLORIDE 0.9% 1,000 ML IV SCH (10:24)
[2022-02-01] MEDS: PIPERACILLIN/TAZOBACTAM 3,375 MG in SODIUM CHLORIDE 0.9% 100 ML IV SCH ×2 (10:25→17:22)
[2022-02-01] MEDS: VANCOMYCIN INJ 1,250 MG in SODIUM CHLORIDE 0.9% 250 ML IV SCH ×2 (10:53→23:51)
[2022-02-01] MEDS: ALBUTEROL/IPRATROPIUM 3 ML NEB RESP TX SCH ×2 (11:25→19:41)
[2022-02-01] MEDS: DORNASE ALFA 2.5 MG/2.5 ML VIAL RESP TX SCH ×2 (11:25→19:41)
[2022-02-01] MEDS: MIRTAZAPINE 15 MG TABLET PO SCH (21:05)
[2022-02-02] MEDS: ALBUTEROL/IPRATROPIUM 3 ML NEB RESP TX SCH ×4 (00:51→19:59)
[2022-02-02] MEDS: PIPERACILLIN/TAZOBACTAM 3,375 MG in SODIUM CHLORIDE 0.9% 100 ML IV SCH ×3 (03:15→17:01)
[2022-02-02 05:21] LABS: Basophils % 0.3 % (0.0-0.8); Eosinophils # 0.1 10*3/uL (0.0-0.87); Eosinophils % 1.9 % (0.00-10.9); Hematocrit 28.7 VOL% (35.7-47.0); Hemoglobin 8.5 GM/DL (12.0-16.0); Immature Granulocytes Absolute 0.06 #; Lymphocytes % 16.9 % (21.3-54.2); Mean Corpuscular HGB Conc 29.6 GM/DL (32-36); Mean Platelet Volume 10.3 FL (9.6-12.0); Monocytes # 0.4 10*3/uL (0.11-0.8); Monocytes % 6.6 % (1.7-12.7); Neutrophils % 73.3 % (38.7-73.9); Platelet Count 354 T/CUMM (130-400); Red Blood Count 3.12 MC/CUMM (3.8-5.5); Red Cell Distribution Width 16.1 % (9.3-17.3); White Blood Count 5.9 T/CUMM (4-12)
[2022-02-02 05:50] LABS: Alanine Aminotransferase 17 U/L (13-56); Albumin 1.7 G/DL (3.4-5.0); Alkaline Phosphatase 47 U/L (45-117); Aspartate Amino Transferase 19 U/L (0-37); Bilirubin,Total < 0.39 MG/DL (0.20-1.00); Blood Urea Nitrogen 29 MG/DL (7-18); Calcium 10.5 MG/DL (8.5-10.1); Carbon Dioxide 36 MMOL/L (21-32); Chloride 102 MMOL/L (98-107); Glucose 87 MG/DL (74-106); Osmolality,Calculated 285.3 MOS/KG (273-304); Potassium 3.8 MMOL/L (3.5-5.1); Sodium 141 MMOL/L (136-145); Total Protein 6.1 G/DL (6.4-8.2)
[2022-02-02] MEDS: DORNASE ALFA 2.5 MG/2.5 ML VIAL RESP TX SCH ×2 (07:40→20:06)
[2022-02-02] MEDS: INSULIN LISPRO 100 UNIT/ML SUBCUT SCH ×4 (08:05→20:55)
[2022-02-02 08:46] LABS: % Iron Saturation 27.8 % (18-50); Ferritin 470.3 ng/mL (8-252)
[2022-02-02 08:48] LABS: Folate 4.61 NG/ML (5.38-24.0)
[2022-02-02] MEDS: FOLIC ACID 1 MG TABLET PO SCH ×2 (09:37→12:31)
[2022-02-02] MEDS: POTASSIUM CHLORIDE 20 MEQ TABLET PO SCH ×3 (09:37→20:55)
[2022-02-02] MEDS: MAGNESIUM OXIDE 400 MG TABLET PO SCH ×3 (09:37→20:55)
[2022-02-02] MEDS: HYDROCORTISONE 10 MG TABLET PO SCH ×3 (09:37→20:55)
[2022-02-02] MEDS: ESCITALOPRAM 10 MG TABLET PO SCH ×2 (09:37→12:31)
[2022-02-02] MEDS: ANASTROZOLE 1 MG TABLET PO SCH ×2 (09:37→12:31)
[2022-02-02] MEDS: CYANOCOBALAMIN 500 MCG TABLET PO SCH (09:38)
[2022-02-02] MEDS: POLYETHYLENE GLYCOL POWDER 17 GM PACK PO SCH ×3 (09:38→20:55)
[2022-02-02] MEDS: SODIUM CHLORIDE 1 GM TABLET PO SCH ×2 (09:38→12:30)
[2022-02-02] MEDS: VANCOMYCIN INJ 1,250 MG in SODIUM CHLORIDE 0.9% 250 ML IV SCH (13:55)
[2022-02-02] MEDS: MIRTAZAPINE 15 MG TABLET PO SCH (20:55)
[2022-02-02] MEDS: SODIUM CHLORIDE 0.9% 1,000 ML IV SCH (22:00)
[2022-02-03] MEDS: ALBUTEROL/IPRATROPIUM 3 ML NEB RESP TX SCH ×4 (00:42→19:45)
[2022-02-03] MEDS: PIPERACILLIN/TAZOBACTAM 3,375 MG in SODIUM CHLORIDE 0.9% 100 ML IV SCH ×3 (05:48→22:48)
[2022-02-03 05:52] LABS: Basophils % 0.2 % (0.0-0.8); Eosinophils % 0.1 % (0.00-10.9); Hematocrit 27.2 VOL% (35.7-47.0); Hemoglobin 8.3 GM/DL (12.0-16.0); Immature Granulocytes Absolute 0.09 #; Lymphocytes # 0.6 10*3/uL (1.4-4.0); Lymphocytes % 7.1 % (21.3-54.2); Mean Corpuscular HGB Conc 30.5 GM/DL (32-36); Mean Corpuscular Volume 90.4 FL (87-102); Mean Platelet Volume 10.1 FL (9.6-12.0); Monocytes # 0.4 10*3/uL (0.11-0.8); Monocytes % 4.6 % (1.7-12.7); Platelet Count 304 T/CUMM (130-400); Red Blood Count 3.01 MC/CUMM (3.8-5.5); Red Cell Distribution Width 15.9 % (9.3-17.3); White Blood Count 8.7 T/CUMM (4-12)
[2022-02-03 06:13] LABS: Calcium 9.9 MG/DL (8.5-10.1); Osmolality,Calculated 280.7 MOS/KG (273-304); Potassium 4.2 MMOL/L (3.5-5.1)
[2022-02-03] MEDS: DORNASE ALFA 2.5 MG/2.5 ML VIAL RESP TX SCH ×2 (07:50→19:19)
[2022-02-03] MEDS: INSULIN LISPRO 100 UNIT/ML SUBCUT SCH ×4 (07:53→22:49)
[2022-02-03] MEDS: POTASSIUM CHLORIDE 20 MEQ TABLET PO SCH ×2 (09:03→22:47)
[2022-02-03] MEDS: HYDROCORTISONE 10 MG TABLET PO SCH ×2 (09:03→22:47)
[2022-02-03] MEDS: SODIUM CHLORIDE 1 GM TABLET PO SCH (09:03)
[2022-02-03] MEDS: FOLIC ACID 1 MG TABLET PO SCH (09:04)
[2022-02-03] MEDS: ESCITALOPRAM 10 MG TABLET PO SCH (09:04)
[2022-02-03] MEDS: CYANOCOBALAMIN 500 MCG TABLET PO SCH (09:04)
[2022-02-03] MEDS: ANASTROZOLE 1 MG TABLET PO SCH (09:04)
[2022-02-03] MEDS: MAGNESIUM OXIDE 400 MG TABLET PO SCH ×2 (09:04→22:47)
[2022-02-03] MEDS: POLYETHYLENE GLYCOL POWDER 17 GM PACK PO SCH ×2 (09:04→22:48)
[2022-02-03 19:46] LABS: M. Tuberculosis PCR Result Negative (Negative); M. Tuberculosis PCR Source PLEURAL
[2022-02-03] MEDS: MIRTAZAPINE 15 MG TABLET PO SCH (22:48)
[2022-02-04] MEDS: ALBUTEROL/IPRATROPIUM 3 ML NEB RESP TX SCH ×4 (00:35→19:44)
[2022-02-04] MEDS: SODIUM CHLORIDE 0.9% 1,000 ML IV SCH ×2 (05:44→16:50)
[2022-02-04] MEDS: PIPERACILLIN/TAZOBACTAM 3,375 MG in SODIUM CHLORIDE 0.9% 100 ML IV SCH ×3 (05:45→22:46)
[2022-02-04] MEDS: DORNASE ALFA 2.5 MG/2.5 ML VIAL RESP TX SCH ×2 (07:11→19:44)
[2022-02-04] MEDS: INSULIN LISPRO 100 UNIT/ML SUBCUT SCH ×4 (07:42→22:48)
[2022-02-04] MEDS: CYANOCOBALAMIN 500 MCG TABLET PO SCH (09:10)
[2022-02-04] MEDS: FOLIC ACID 1 MG TABLET PO SCH (09:10)
[2022-02-04] MEDS: POTASSIUM CHLORIDE 20 MEQ TABLET PO SCH ×2 (09:11→22:45)
[2022-02-04] MEDS: POLYETHYLENE GLYCOL POWDER 17 GM PACK PO SCH ×2 (09:11→22:44)
[2022-02-04] MEDS: MAGNESIUM OXIDE 400 MG TABLET PO SCH ×2 (09:11→22:46)
[2022-02-04] MEDS: ANASTROZOLE 1 MG TABLET PO SCH (09:11)
[2022-02-04] MEDS: HYDROCORTISONE 10 MG TABLET PO SCH ×2 (09:11→22:45)
[2022-02-04] MEDS: ESCITALOPRAM 10 MG TABLET PO SCH (09:11)
[2022-02-04] MEDS: SODIUM CHLORIDE 1 GM TABLET PO SCH (09:37)
[2022-02-04] MEDS ORDERED: HEPARIN 5,000 UNIT/1 ML VIAL SUBCUT ONE (11:30)
[2022-02-04 14:46] LABS: Total Volume 1200 mL
[2022-02-04] MEDS: MIRTAZAPINE 15 MG TABLET PO SCH (22:45)
[2022-02-05] MEDS: ALBUTEROL/IPRATROPIUM 3 ML NEB RESP TX SCH ×4 (00:08→19:53)
[2022-02-05] MEDS: PIPERACILLIN/TAZOBACTAM 3,375 MG in SODIUM CHLORIDE 0.9% 100 ML IV SCH ×3 (05:12→21:31)
[2022-02-05] MEDS: DORNASE ALFA 2.5 MG/2.5 ML VIAL RESP TX SCH ×2 (07:08→19:58)
[2022-02-05] MEDS ORDERED: LIDOCAINE 1%/EPI INJ 20 ML VIAL ONE (08:08)
[2022-02-05] MEDS ORDERED: MIDAZOLAM 2 MG/2 ML VIAL ONE (08:27)
[2022-02-05] MEDS ORDERED: KETAMINE 500 MG/10 ML VIAL ONE (08:27)
[2022-02-05] MEDS ORDERED: LACTATED RINGERS 1,000 ML IV SCH (09:30)
[2022-02-05] MEDS ORDERED: GLUCAGON 1 MG VIAL IM PRN (09:36)
[2022-02-05] MEDS ORDERED: DEXTROSE 50% 25 GM/50 ML VIAL IV PRN (09:36)
[2022-02-05] MEDS ORDERED: ESMOLOL 100 MG/10 ML VIAL IV ONE ×2 (09:40)
[2022-02-05] MEDS ORDERED: HYDROmorphone 1 MG/1 ML SYRINGE ONE (09:43)
[2022-02-05] MEDS ORDERED: ONDANSETRON 4 MG/2 ML VIAL IV PRN (09:54)
[2022-02-05] MEDS ORDERED: HYDROmorphone 1 MG/1 ML SYRINGE IV PRN (09:54)
[2022-02-05] MEDS: INSULIN LISPRO 100 UNIT/ML SUBCUT SCH ×5 (11:14→21:15)
[2022-02-05] MEDS: CYANOCOBALAMIN 500 MCG TABLET PO SCH (12:29)
[2022-02-05] MEDS: ESCITALOPRAM 10 MG TABLET PO SCH (12:29)
[2022-02-05] MEDS: MAGNESIUM OXIDE 400 MG TABLET PO SCH ×2 (12:29→21:22)
[2022-02-05] MEDS: POLYETHYLENE GLYCOL POWDER 17 GM PACK PO SCH ×2 (12:29→21:22)
[2022-02-05] MEDS: SODIUM CHLORIDE 1 GM TABLET PO SCH (12:29)
[2022-02-05] MEDS: ANASTROZOLE 1 MG TABLET PO SCH (12:30)
[2022-02-05] MEDS: FOLIC ACID 1 MG TABLET PO SCH (12:30)
[2022-02-05] MEDS: POTASSIUM CHLORIDE 20 MEQ TABLET PO SCH ×2 (12:30→21:22)
[2022-02-05] MEDS: HYDROCORTISONE 10 MG TABLET PO SCH (13:12)
[2022-02-05] MEDS: KETOROLAC 10 MG TABLET PO SCH ×2 (13:14→17:41)
[2022-02-05] MEDS ORDERED: DIGOXIN 0.5 MG/2 ML AMP IV ONE ×2 (13:46→16:00)
[2022-02-05 14:10] LABS: Basophils % 0.2 % (0.0-0.8); Eosinophils # 0.2 10*3/uL (0.0-0.87); Eosinophils % 1.5 % (0.00-10.9); Hematocrit 32.6 VOL% (35.7-47.0); Hemoglobin 9.7 GM/DL (12.0-16.0); Immature Granulocytes % 0.5 %; Immature Granulocytes Absolute 0.07 #; Lymphocytes # 1.1 10*3/uL (1.4-4.0); Lymphocytes % 8.3 % (21.3-54.2); Mean Corpuscular HGB Conc 29.8 GM/DL (32-36); Mean Corpuscular Volume 93.1 FL (87-102); Mean Platelet Volume 9.7 FL (9.6-12.0); Monocytes # 0.6 10*3/uL (0.11-0.8); Monocytes % 4.5 % (1.7-12.7); Platelet Count 279 T/CUMM (130-400); Red Cell Distribution Width 16.9 % (9.3-17.3)
[2022-02-05] MEDS: ASCORBIC ACID 500 MG TABLET PO SCH ×2 (14:25→21:22)
[2022-02-05 14:29] LABS: Calcium 9.3 MG/DL (8.5-10.1); Osmolality,Calculated 284.3 MOS/KG (273-304); Potassium 4.1 MMOL/L (3.5-5.1)
[2022-02-05] MEDS ORDERED: MAGNESIUM SULF RIDER 2 GM/50 ML PREMIX IV ONE (15:03)
[2022-02-05] MEDS ORDERED: SODIUM CHLORIDE 0.9% 1,000 ML IV SCH (15:30)
[2022-02-05] MEDS: METOPROLOL TARTRATE 25 MG TABLET PO SCH (21:16)
[2022-02-05] MEDS: MIRTAZAPINE 15 MG TABLET PO SCH (21:22)
[2022-02-06] MEDS: KETOROLAC 10 MG TABLET PO SCH ×4 (00:24→18:00)
[2022-02-06] MEDS: ALBUTEROL/IPRATROPIUM 3 ML NEB RESP TX SCH ×4 (01:54→20:00)
[2022-02-06 05:04] LABS: Basophils % 0.2 % (0.0-0.8); Eosinophils # 0.3 10*3/uL (0.0-0.87); Eosinophils % 2.6 % (0.00-10.9); Hematocrit 27.2 VOL% (35.7-47.0); Hemoglobin 8.2 GM/DL (12.0-16.0); Immature Granulocytes % 0.7 %; Immature Granulocytes Absolute 0.07 #; Lymphocytes # 1.1 10*3/uL (1.4-4.0); Lymphocytes % 11.9 % (21.3-54.2); Mean Corpuscular HGB Conc 30.1 GM/DL (32-36); Mean Corpuscular Volume 92.2 FL (87-102); Monocytes # 0.6 10*3/uL (0.11-0.8); Monocytes % 6.3 % (1.7-12.7); Neutrophils % 78.3 % (38.7-73.9); Platelet Count 226 T/CUMM (130-400); Red Blood Count 2.95 MC/CUMM (3.8-5.5); Red Cell Distribution Width 16.9 % (9.3-17.3); White Blood Count 9.5 T/CUMM (4-12)
[2022-02-06] MEDS: PIPERACILLIN/TAZOBACTAM 3,375 MG in SODIUM CHLORIDE 0.9% 100 ML IV SCH ×3 (05:18→22:18)
[2022-02-06 05:23] LABS: Risk Ratio 2.72; VLDL Cholesterol 10.6 MG/DL
[2022-02-06 05:24] LABS: Calcium 9.6 MG/DL (8.5-10.1); Osmolality,Calculated 279.5 MOS/KG (273-304); Potassium 4.5 MMOL/L (3.5-5.1)
[2022-02-06] MEDS: SODIUM CHLORIDE 0.9% 1,000 ML IV SCH (05:29)
[2022-02-06] MEDS: DORNASE ALFA 2.5 MG/2.5 ML VIAL RESP TX SCH ×2 (07:25→20:07)
[2022-02-06] MEDS: INSULIN LISPRO 100 UNIT/ML SUBCUT SCH ×4 (08:03→22:15)
[2022-02-06] MEDS: POTASSIUM CHLORIDE 20 MEQ TABLET PO SCH ×2 (09:02→22:12)
[2022-02-06] MEDS: SODIUM CHLORIDE 1 GM TABLET PO SCH (09:02)
[2022-02-06] MEDS: ASCORBIC ACID 500 MG TABLET PO SCH ×2 (09:02→22:11)
[2022-02-06] MEDS: MAGNESIUM OXIDE 400 MG TABLET PO SCH ×2 (09:02→22:12)
[2022-02-06] MEDS: ANASTROZOLE 1 MG TABLET PO SCH (09:02)
[2022-02-06] MEDS: CYANOCOBALAMIN 500 MCG TABLET PO SCH (09:02)
[2022-02-06] MEDS: ESCITALOPRAM 10 MG TABLET PO SCH (09:02)
[2022-02-06] MEDS: FOLIC ACID 1 MG TABLET PO SCH (09:03)
[2022-02-06] MEDS: METOPROLOL TARTRATE 25 MG TABLET PO SCH ×2 (09:03→22:12)
[2022-02-06] MEDS: POLYETHYLENE GLYCOL POWDER 17 GM PACK PO SCH ×2 (09:05→22:09)
[2022-02-06] MEDS: DIGOXIN 0.125 MG TABLET PO SCH (13:32)
[2022-02-06] MEDS: MIRTAZAPINE 15 MG TABLET PO SCH (22:12)
[2022-02-07] MEDS: ALBUTEROL/IPRATROPIUM 3 ML NEB RESP TX SCH ×4 (00:40→19:00)
[2022-02-07] MEDS: KETOROLAC 10 MG TABLET PO SCH ×4 (01:19→17:16)
[2022-02-07] MEDS: PIPERACILLIN/TAZOBACTAM 3,375 MG in SODIUM CHLORIDE 0.9% 100 ML IV SCH ×3 (05:49→21:53)
[2022-02-07 06:25] LABS: Calcium 9.3 MG/DL (8.5-10.1); Osmolality,Calculated 279.7 MOS/KG (273-304); Potassium 5.5 MMOL/L (3.5-5.1)
[2022-02-07 06:32] LABS: Basophils % 0.2 % (0.0-0.8); Eosinophils # 0.3 10*3/uL (0.0-0.87); Eosinophils % 2.8 % (0.00-10.9); Hematocrit 30.3 VOL% (35.7-47.0); Immature Granulocytes % 0.6 %; Immature Granulocytes Absolute 0.06 #; Lymphocytes # 1.3 10*3/uL (1.4-4.0); Lymphocytes % 12.4 % (21.3-54.2); Mean Corpuscular HGB Conc 29.7 GM/DL (32-36); Mean Corpuscular Volume 93.2 FL (87-102); Mean Platelet Volume 10.9 FL (9.6-12.0); Monocytes % 9.7 % (1.7-12.7); Neutrophils % 74.3 % (38.7-73.9); Platelet Count 214 T/CUMM (130-400); Red Blood Count 3.25 MC/CUMM (3.8-5.5); White Blood Count 10.5 T/CUMM (4-12)
[2022-02-07] MEDS: DORNASE ALFA 2.5 MG/2.5 ML VIAL RESP TX SCH ×2 (07:45→19:00)
[2022-02-07] MEDS: INSULIN LISPRO 100 UNIT/ML SUBCUT SCH ×4 (08:11→21:15)
[2022-02-07] MEDS: POLYETHYLENE GLYCOL POWDER 17 GM PACK PO SCH ×2 (09:46→21:16)
[2022-02-07] MEDS: ESCITALOPRAM 10 MG TABLET PO SCH (09:48)
[2022-02-07] MEDS: CYANOCOBALAMIN 500 MCG TABLET PO SCH (09:48)
[2022-02-07] MEDS: ANASTROZOLE 1 MG TABLET PO SCH (09:48)
[2022-02-07] MEDS: ASCORBIC ACID 500 MG TABLET PO SCH ×2 (09:48→21:21)
[2022-02-07] MEDS: METOPROLOL TARTRATE 25 MG TABLET PO SCH ×2 (09:48→21:16)
[2022-02-07] MEDS: DIGOXIN 0.125 MG TABLET PO SCH (09:48)
[2022-02-07] MEDS: SODIUM CHLORIDE 1 GM TABLET PO SCH (09:48)
[2022-02-07] MEDS: FOLIC ACID 1 MG TABLET PO SCH (09:48)
[2022-02-07] MEDS: MAGNESIUM OXIDE 400 MG TABLET PO SCH ×2 (09:48→21:16)
[2022-02-07] MEDS: MIRTAZAPINE 15 MG TABLET PO SCH (21:21)
[2022-02-08] MEDS: KETOROLAC 10 MG TABLET PO SCH ×3 (00:35→12:38)
[2022-02-08] MEDS: PIPERACILLIN/TAZOBACTAM 3,375 MG in SODIUM CHLORIDE 0.9% 100 ML IV SCH ×3 (07:13→21:59)
[2022-02-08] MEDS: ALBUTEROL/IPRATROPIUM 3 ML NEB RESP TX SCH ×4 (07:20→19:33)
[2022-02-08] MEDS: DORNASE ALFA 2.5 MG/2.5 ML VIAL RESP TX SCH ×2 (07:27→19:33)
[2022-02-08] MEDS: INSULIN LISPRO 100 UNIT/ML SUBCUT SCH ×4 (08:12→21:58)
[2022-02-08] MEDS: DIGOXIN 0.125 MG TABLET PO SCH (10:53)
[2022-02-08] MEDS: POLYETHYLENE GLYCOL POWDER 17 GM PACK PO SCH ×2 (10:53→21:58)
[2022-02-08] MEDS: CYANOCOBALAMIN 500 MCG TABLET PO SCH (10:53)
[2022-02-08] MEDS: MAGNESIUM OXIDE 400 MG TABLET PO SCH ×2 (10:53→21:58)
[2022-02-08] MEDS: SODIUM CHLORIDE 1 GM TABLET PO SCH (10:53)
[2022-02-08] MEDS: FOLIC ACID 1 MG TABLET PO SCH (10:53)
[2022-02-08] MEDS: ESCITALOPRAM 10 MG TABLET PO SCH (10:53)
[2022-02-08] MEDS: ANASTROZOLE 1 MG TABLET PO SCH (10:53)
[2022-02-08] MEDS: ASCORBIC ACID 500 MG TABLET PO SCH ×2 (10:53→21:58)
[2022-02-08] MEDS: METOPROLOL TARTRATE 25 MG TABLET PO SCH (10:53)
[2022-02-08] MEDS: ENOXAPARIN 40 MG/0.4 ML SYRINGE SUBCUT SCH (18:00)
[2022-02-08] MEDS: MIRTAZAPINE 15 MG TABLET PO SCH (21:58)
[2022-02-09] MEDS: ALBUTEROL/IPRATROPIUM 3 ML NEB RESP TX SCH ×4 (00:50→19:01)
[2022-02-09] MEDS: PIPERACILLIN/TAZOBACTAM 3,375 MG in SODIUM CHLORIDE 0.9% 100 ML IV SCH ×3 (05:40→21:54)
[2022-02-09 06:13] LABS: Basophils % 0.2 % (0.0-0.8); Eosinophils % 0.3 % (0.00-10.9); Hematocrit 27.6 VOL% (35.7-47.0); Hemoglobin 8.5 GM/DL (12.0-16.0); Immature Granulocytes % 0.4 %; Immature Granulocytes Absolute 0.07 #; Lymphocytes # 0.9 10*3/uL (1.4-4.0); Lymphocytes % 5.6 % (21.3-54.2); Mean Corpuscular HGB Conc 30.8 GM/DL (32-36); Mean Corpuscular Volume 90.8 FL (87-102); Mean Platelet Volume 10.6 FL (9.6-12.0); Monocytes % 6.2 % (1.7-12.7); Neutrophils % 87.3 % (38.7-73.9); Platelet Count 196 T/CUMM (130-400); Red Blood Count 3.04 MC/CUMM (3.8-5.5); Red Cell Distribution Width 18.1 % (9.3-17.3); White Blood Count 15.6 T/CUMM (4-12)
[2022-02-09 06:31] LABS: Calcium 9.4 MG/DL (8.5-10.1)
[2022-02-09] MEDS: DORNASE ALFA 2.5 MG/2.5 ML VIAL RESP TX SCH ×2 (07:15→19:01)
[2022-02-09] MEDS: INSULIN LISPRO 100 UNIT/ML SUBCUT SCH ×3 (08:21→16:11)
[2022-02-09] MEDS: POLYETHYLENE GLYCOL POWDER 17 GM PACK PO SCH ×2 (09:39→21:52)
[2022-02-09] MEDS: ASCORBIC ACID 500 MG TABLET PO SCH ×2 (09:39→21:51)
[2022-02-09] MEDS: ESCITALOPRAM 10 MG TABLET PO SCH (09:39)
[2022-02-09] MEDS: FOLIC ACID 1 MG TABLET PO SCH (09:39)
[2022-02-09] MEDS: MAGNESIUM OXIDE 400 MG TABLET PO SCH ×2 (09:39→21:51)
[2022-02-09] MEDS: ANASTROZOLE 1 MG TABLET PO SCH (09:39)
[2022-02-09] MEDS: CYANOCOBALAMIN 500 MCG TABLET PO SCH (09:39)
[2022-02-09] MEDS: DIGOXIN 0.125 MG TABLET PO SCH (09:39)
[2022-02-09] MEDS: ENOXAPARIN 40 MG/0.4 ML SYRINGE SUBCUT SCH (12:32)
[2022-02-09] MEDS: MIRTAZAPINE 15 MG TABLET PO SCH (21:52)
[2022-02-09] MEDS: ACETAMINOPHEN 325 MG TABLET PO PRN (21:54)
[2022-02-10] MEDS: ALBUTEROL/IPRATROPIUM 3 ML NEB RESP TX SCH ×4 (00:09→20:18)
[2022-02-10] MEDS: INSULIN LISPRO 100 UNIT/ML SUBCUT SCH ×5 (01:43→21:59)
[2022-02-10 05:02] LABS: Basophils % 0.1 % (0.0-0.8); Eosinophils % 0.2 % (0.00-10.9); Hematocrit 25.4 VOL% (35.7-47.0); Hemoglobin 7.8 GM/DL (12.0-16.0); Immature Granulocytes % 0.6 %; Immature Granulocytes Absolute 0.12 #; Lymphocytes # 0.8 10*3/uL (1.4-4.0); Lymphocytes % 4.1 % (21.3-54.2); Mean Corpuscular HGB Conc 30.7 GM/DL (32-36); Mean Corpuscular Volume 89.8 FL (87-102); Mean Platelet Volume 11.1 FL (9.6-12.0); Monocytes # 1.2 10*3/uL (0.11-0.8); Monocytes % 6.3 % (1.7-12.7); Neutrophils % 88.7 % (38.7-73.9); Platelet Count 199 T/CUMM (130-400); Red Blood Count 2.83 MC/CUMM (3.8-5.5); White Blood Count 18.8 T/CUMM (4-12)
[2022-02-10 05:15] LABS: Calcium 9.5 MG/DL (8.5-10.1); Osmolality,Calculated 281.7 MOS/KG (273-304); Potassium 4.5 MMOL/L (3.5-5.1)
[2022-02-10 05:29] LABS: Anisocytosis 1+; Band Neutrophils 5 % (0-10); Lymphocytes 5 % (20-55); Platelet Estimate Normal; Total Cells Counted 100
[2022-02-10] MEDS: ACETAMINOPHEN 325 MG TABLET PO PRN (06:08)
[2022-02-10] MEDS: PIPERACILLIN/TAZOBACTAM 3,375 MG in SODIUM CHLORIDE 0.9% 100 ML IV SCH ×3 (06:11→21:51)
[2022-02-10] MEDS: POLYETHYLENE GLYCOL POWDER 17 GM PACK PO SCH ×2 (09:37→20:59)
[2022-02-10] MEDS: CYANOCOBALAMIN 500 MCG TABLET PO SCH (09:37)
[2022-02-10] MEDS: DIGOXIN 0.125 MG TABLET PO SCH (09:37)
[2022-02-10] MEDS: ASCORBIC ACID 500 MG TABLET PO SCH ×2 (09:37→20:59)
[2022-02-10] MEDS: ANASTROZOLE 1 MG TABLET PO SCH (09:37)
[2022-02-10] MEDS: FOLIC ACID 1 MG TABLET PO SCH (09:37)
[2022-02-10] MEDS: MAGNESIUM OXIDE 400 MG TABLET PO SCH ×2 (09:37→20:59)
[2022-02-10] MEDS: ESCITALOPRAM 10 MG TABLET PO SCH (09:37)
[2022-02-10] MEDS: DORNASE ALFA 2.5 MG/2.5 ML VIAL RESP TX SCH ×2 (10:50→20:18)
[2022-02-10] MEDS: ENOXAPARIN 40 MG/0.4 ML SYRINGE SUBCUT SCH (12:53)
[2022-02-10] MEDS: MIRTAZAPINE 15 MG TABLET PO SCH (21:00)
[2022-02-11] MEDS: ALBUTEROL/IPRATROPIUM 3 ML NEB RESP TX SCH ×3 (01:39→19:59)
[2022-02-11 05:37] LABS: Basophils % 0.2 % (0.0-0.8); Eosinophils % 0.1 % (0.00-10.9); Hematocrit 25.4 VOL% (35.7-47.0); Hemoglobin 7.7 GM/DL (12.0-16.0); Immature Granulocytes % 0.8 %; Immature Granulocytes Absolute 0.14 #; Lymphocytes # 0.7 10*3/uL (1.4-4.0); Lymphocytes % 4.1 % (21.3-54.2); Mean Corpuscular HGB Conc 30.3 GM/DL (32-36); Mean Corpuscular Volume 90.4 FL (87-102); Mean Platelet Volume 10.9 FL (9.6-12.0); Monocytes # 0.9 10*3/uL (0.11-0.8); Monocytes % 5.1 % (1.7-12.7); Neutrophils % 89.7 % (38.7-73.9); Platelet Count 203 T/CUMM (130-400); Red Blood Count 2.81 MC/CUMM (3.8-5.5); Red Cell Distribution Width 17.5 % (9.3-17.3); White Blood Count 17.7 T/CUMM (4-12)
[2022-02-11] MEDS: PIPERACILLIN/TAZOBACTAM 3,375 MG in SODIUM CHLORIDE 0.9% 100 ML IV SCH ×3 (05:37→21:26)
[2022-02-11 06:11] LABS: Lymphocytes 5 % (20-55); Platelet Estimate Adequate; Total Cells Counted 100
[2022-02-11 06:12] LABS: Osmolality,Calculated 277.8 MOS/KG (273-304)
[2022-02-11] MEDS: DORNASE ALFA 2.5 MG/2.5 ML VIAL RESP TX SCH ×2 (07:30→20:07)
[2022-02-11] MEDS ORDERED: fentaNYL 100 MCG/2 ML VIAL ONE ×2 (10:44→12:45)
[2022-02-11] MEDS ORDERED: LIDOCAINE 1% 5 ML VIAL ONE (10:45)
[2022-02-11] MEDS ORDERED: HEPARIN/NACL 0.9% 2 UNITS/ML 1,000 UNIT/500 ML BAG IV ONE (10:45)
[2022-02-11] MEDS ORDERED: LACTATED RINGERS 1,000 ML IV SCH (11:00)
[2022-02-11] MEDS ORDERED: PHENYLEPHRINE DRIP 20 MG/250 ML PREMIX IV ONE (11:01)
[2022-02-11] MEDS: INSULIN LISPRO 100 UNIT/ML SUBCUT SCH ×2 (11:03→14:45)
[2022-02-11] MEDS: FOLIC ACID 1 MG TABLET PO SCH (11:04)
[2022-02-11] MEDS: DIGOXIN 0.125 MG TABLET PO SCH (11:04)
[2022-02-11] MEDS: ESCITALOPRAM 10 MG TABLET PO SCH (11:04)
[2022-02-11] MEDS: CYANOCOBALAMIN 500 MCG TABLET PO SCH (11:04)
[2022-02-11] MEDS: MAGNESIUM OXIDE 400 MG TABLET PO SCH ×2 (11:04→21:11)
[2022-02-11] MEDS: ANASTROZOLE 1 MG TABLET PO SCH (11:04)
[2022-02-11] MEDS: POLYETHYLENE GLYCOL POWDER 17 GM PACK PO SCH ×2 (11:04→21:11)
[2022-02-11] MEDS: ASCORBIC ACID 500 MG TABLET PO SCH ×2 (11:04→21:11)
[2022-02-11] MEDS ORDERED: ALBUTEROL INHALER 18 GM INH ONE (12:34)
[2022-02-11] MEDS ORDERED: SUGAMMADEX 200 MG/2 ML VIAL IV ONE (13:03)
[2022-02-11] MEDS ORDERED: ETOMIDATE 40 MG/20 ML VIAL IV ONE (13:04)
[2022-02-11] MEDS ORDERED: LIDOCAINE 2% 5 ML VIAL ONE (13:04)
[2022-02-11] MEDS ORDERED: SEVOFLURANE 1 UNIT/15 MINUTE INH ONE ×5 (13:04→14:06)
[2022-02-11] MEDS ORDERED: propofoL 200 MG/20 ML VIAL IV ONE (13:04)
[2022-02-11] MEDS ORDERED: ROCURONIUM 50 MG/5 ML VIAL IV ONE ×3 (13:05→13:58)
[2022-02-11] MEDS ORDERED: ESMOLOL 100 MG/10 ML VIAL IV ONE (13:05)
[2022-02-11] MEDS ORDERED: PHENYLEPHRINE 1 MG/10 ML SYRINGE IV ONE (13:05)
[2022-02-11] MEDS ORDERED: DEXTROSE 10% 250 ML BAG IV PRN (13:17)
[2022-02-11] MEDS ORDERED: GLUCAGON 1 MG VIAL IM PRN (13:17)
[2022-02-11] MEDS ORDERED: ALBUTEROL 2.5 MG/3 ML NEB RESP TX PRN (13:21)
[2022-02-11] MEDS ORDERED: MIDAZOLAM 100 MG in SODIUM CHLORIDE 0.9% 80 ML IV PRN (14:20)
[2022-02-11 14:23] LABS: Glucose,Urine (UA) Negative (Negative); Ketones,Urine Negative (Negative); Protein,Urine 100 mg/dL (Negative); Squamous Epithelial Cell,Urine Occasional /HPF (0-10); Urine Appearance Clear (Clear); Urine Color Yellow (Yellow); Urine Specific Gravity 1.025 (1.001-1.035); Urine pH 5.5 (4.5-8.0)
[2022-02-11 14:24] LABS: Bilirubin,Urine Negative (Negative); Blood, Urine Negative (Negative); Nitrite,Urine Negative (Negative); Urine Urobilinogen 0.2 eU/dL (<2.0)
[2022-02-11] MEDS: HYDROmorphone 1 MG/1 ML SYRINGE IV PRN ×2 (14:42→18:15)
[2022-02-11] MEDS: POTASSIUM CHLORIDE INJ 10 MEQ in SODIUM CHLORIDE 0.45% 1,000 ML IV SCH ×2 (14:45→22:18)
[2022-02-11] MEDS: PHENYLEPHRINE DRIP 40 MG/250 ML PREMIX IV PRN (14:52)
[2022-02-11] MEDS: ENOXAPARIN 40 MG/0.4 ML SYRINGE SUBCUT SCH (15:26)
[2022-02-11] MEDS ORDERED: INSULIN REGULAR 100 UNIT/ML SUBCUT SCH (16:30)
[2022-02-11 17:30] LABS: Basophils # 0.1 10*3/uL (0.0-0.2); Basophils % 0.3 % (0.0-0.8); Eosinophils % 0.1 % (0.00-10.9); Hematocrit 36.2 VOL% (35.7-47.0); Immature Granulocytes % 1.3 %; Immature Granulocytes Absolute 0.38 #; Lymphocytes # 0.8 10*3/uL (1.4-4.0); Lymphocytes % 2.7 % (21.3-54.2); Mean Corpuscular Volume 93.5 FL (87-102); Mean Platelet Volume 11.1 FL (9.6-12.0); Monocytes # 1.8 10*3/uL (0.11-0.8); Monocytes % 6.1 % (1.7-12.7); Neutrophils % 89.5 % (38.7-73.9); Platelet Count 318 T/CUMM (130-400); Red Blood Count 3.87 MC/CUMM (3.8-5.5); Red Cell Distribution Width 17.4 % (9.3-17.3); White Blood Count 29.2 T/CUMM (4-12)
[2022-02-11 17:31] LABS: Hemoglobin 10.5 GM/DL (12.0-16.0)
[2022-02-11 18:19] LABS: Hematocrit 29.4 VOL% (35.7-47.0); Hemoglobin 8.8 GM/DL (12.0-16.0)
[2022-02-11 18:52] LABS: Band Neutrophils 1 % (0-10); Lymphocytes 3 % (20-55); Platelet Estimate Normal; Total Cells Counted 100
[2022-02-11] MEDS: MIRTAZAPINE 15 MG TABLET PO SCH (21:11)
[2022-02-12] MEDS: ALBUTEROL/IPRATROPIUM 3 ML NEB RESP TX SCH ×5 (01:52→19:27)
[2022-02-12 03:39] LABS: Basophils % 0.2 % (0.0-0.8); Hematocrit 28.5 VOL% (35.7-47.0); Hemoglobin 8.5 GM/DL (12.0-16.0); Immature Granulocytes % 0.6 %; Immature Granulocytes Absolute 0.12 #; Lymphocytes # 0.5 10*3/uL (1.4-4.0); Lymphocytes % 2.8 % (21.3-54.2); Mean Corpuscular HGB Conc 29.8 GM/DL (32-36); Mean Corpuscular Volume 92.2 FL (87-102); Mean Platelet Volume 10.6 FL (9.6-12.0); Monocytes # 0.7 10*3/uL (0.11-0.8); Monocytes % 3.7 % (1.7-12.7); Neutrophils % 92.7 % (38.7-73.9); Platelet Count 286 T/CUMM (130-400); Red Blood Count 3.09 MC/CUMM (3.8-5.5); White Blood Count 18.8 T/CUMM (4-12)
[2022-02-12 03:42] LABS: ABG Base Excess -1.4 MMOL/L (-2.5-2.5); ABG HCO3 23.3 MMOL/L (20-26); ABG Oxygen Saturation 99.8 % (95-100); ABG PCO2 46.8 MM HG (35-48); ABG PH 7.329 (7.35-7.45); ABG TCO2 23.1 MMOL/L (23-27)
[2022-02-12 03:51] LABS: Calcium 10.3 MG/DL (8.5-10.1); Osmolality,Calculated 272.1 MOS/KG (273-304); Potassium 4.4 MMOL/L (3.5-5.1)
[2022-02-12] MEDS: HYDROmorphone 1 MG/1 ML SYRINGE IV PRN ×2 (03:51→14:55)
[2022-02-12 04:00] LABS: Band Neutrophils 1 % (0-10); Lymphocytes 3 % (20-55); Total Cells Counted 100
[2022-02-12] MEDS: PIPERACILLIN/TAZOBACTAM 3,375 MG in SODIUM CHLORIDE 0.9% 100 ML IV SCH ×3 (05:53→21:31)
[2022-02-12] MEDS: POTASSIUM CHLORIDE INJ 10 MEQ in SODIUM CHLORIDE 0.45% 1,000 ML IV SCH ×4 (06:47→20:23)
[2022-02-12] MEDS: DORNASE ALFA 2.5 MG/2.5 ML VIAL RESP TX SCH ×2 (06:52→19:26)
[2022-02-12] MEDS: MAGNESIUM OXIDE 400 MG TABLET PO SCH ×2 (08:04→20:50)
[2022-02-12] MEDS: CYANOCOBALAMIN 500 MCG TABLET PO SCH (08:04)
[2022-02-12] MEDS: FOLIC ACID 1 MG TABLET PO SCH (08:04)
[2022-02-12] MEDS: DIGOXIN 0.125 MG TABLET PO SCH (08:04)
[2022-02-12] MEDS: ESCITALOPRAM 10 MG TABLET PO SCH (08:04)
[2022-02-12] MEDS: POLYETHYLENE GLYCOL POWDER 17 GM PACK PO SCH ×2 (08:04→20:49)
[2022-02-12] MEDS: ANASTROZOLE 1 MG TABLET PO SCH (08:04)
[2022-02-12] MEDS: ASCORBIC ACID 500 MG TABLET PO SCH ×2 (08:05→20:49)
[2022-02-12] MEDS: PHENYLEPHRINE DRIP 40 MG/250 ML PREMIX IV PRN (10:06)
[2022-02-12] MEDS ORDERED: DIGOXIN 0.5 MG/2 ML AMP IV ONE (14:42)
[2022-02-12] MEDS ORDERED: DIGOXIN 0.5 MG/2 ML AMP ONE (14:44)
[2022-02-12] MEDS: ENOXAPARIN 40 MG/0.4 ML SYRINGE SUBCUT SCH (15:01)
[2022-02-12] MEDS: DEXMEDETOMIDINE 200 MCG in SODIUM CHLORIDE 0.9% 48 ML IV PRN (17:01)
[2022-02-12] MEDS: MIRTAZAPINE 15 MG TABLET PO SCH (20:49)
[2022-02-13] MEDS: ALBUTEROL/IPRATROPIUM 3 ML NEB RESP TX SCH ×4 (00:10→19:10)
[2022-02-13] MEDS: DEXMEDETOMIDINE 200 MCG in SODIUM CHLORIDE 0.9% 48 ML IV PRN (04:00)
[2022-02-13 04:16] LABS: ABG HCO3 22.8 MMOL/L (20-26); ABG Oxygen Saturation 99.3 % (95-100); ABG PH 7.393 (7.35-7.45); ABG TCO2 20.9 MMOL/L (23-27)
[2022-02-13 04:17] LABS: Basophils # 0.1 10*3/uL (0.0-0.2); Basophils % 0.4 % (0.0-0.8); Eosinophils # 0.1 10*3/uL (0.0-0.87); Eosinophils % 0.8 % (0.00-10.9); Hematocrit 27.2 VOL% (35.7-47.0); Hemoglobin 8.3 GM/DL (12.0-16.0); Immature Granulocytes % 0.5 %; Immature Granulocytes Absolute 0.06 #; Lymphocytes # 0.8 10*3/uL (1.4-4.0); Lymphocytes % 6.7 % (21.3-54.2); Mean Corpuscular HGB Conc 30.5 GM/DL (32-36); Mean Corpuscular Volume 90.7 FL (87-102); Mean Platelet Volume 10.4 FL (9.6-12.0); Monocytes # 0.6 10*3/uL (0.11-0.8); Monocytes % 5.2 % (1.7-12.7); Neutrophils % 86.4 % (38.7-73.9); Platelet Count 293 T/CUMM (130-400)
[2022-02-13 04:30] LABS: Calcium 9.7 MG/DL (8.5-10.1); Osmolality,Calculated 272.8 MOS/KG (273-304)
[2022-02-13] MEDS: POTASSIUM CHLORIDE INJ 10 MEQ in SODIUM CHLORIDE 0.45% 1,000 ML IV SCH ×6 (04:56→20:42)
[2022-02-13] MEDS: PIPERACILLIN/TAZOBACTAM 3,375 MG in SODIUM CHLORIDE 0.9% 100 ML IV SCH ×3 (05:17→21:27)
[2022-02-13] MEDS: DORNASE ALFA 2.5 MG/2.5 ML VIAL RESP TX SCH ×2 (06:52→19:15)
[2022-02-13] MEDS: FOLIC ACID 1 MG TABLET PO SCH (08:02)
[2022-02-13] MEDS: ANASTROZOLE 1 MG TABLET PO SCH (08:02)
[2022-02-13] MEDS: ESCITALOPRAM 10 MG TABLET PO SCH (08:02)
[2022-02-13] MEDS: DIGOXIN 0.125 MG TABLET PO SCH (08:02)
[2022-02-13] MEDS: ASCORBIC ACID 500 MG TABLET PO SCH ×2 (08:03→20:45)
[2022-02-13] MEDS: POLYETHYLENE GLYCOL POWDER 17 GM PACK PO SCH ×2 (08:03→20:45)
[2022-02-13] MEDS: CYANOCOBALAMIN 500 MCG TABLET PO SCH (08:03)
[2022-02-13] MEDS: MAGNESIUM OXIDE 400 MG TABLET PO SCH ×2 (08:03→20:45)
[2022-02-13] MEDS ORDERED: MAGNESIUM SULF RIDER 2 GM/50 ML PREMIX IV ONE (08:57)
[2022-02-13] MEDS: ENOXAPARIN 40 MG/0.4 ML SYRINGE SUBCUT SCH (14:34)
[2022-02-13] MEDS: HYDROmorphone 1 MG/1 ML SYRINGE IV PRN (17:00)
[2022-02-13] MEDS: MIRTAZAPINE 15 MG TABLET PO SCH (20:45)
[2022-02-14] MEDS: ALBUTEROL/IPRATROPIUM 3 ML NEB RESP TX SCH ×5 (00:20→19:43)
[2022-02-14 04:45] LABS: ABG Base Excess -2.7 MMOL/L (-2.5-2.5); ABG HCO3 22.1 MMOL/L (20-26); ABG Oxygen Saturation 93.6 % (95-100); ABG PCO2 46.2 MM HG (35-48); ABG PH 7.314 (7.35-7.45); ABG PO2 75.7 MM HG (80-95); ABG TCO2 21.9 MMOL/L (23-27)
[2022-02-14 04:46] LABS: Basophils % 0.3 % (0.0-0.8); Eosinophils # 0.2 10*3/uL (0.0-0.87); Hematocrit 28.4 VOL% (35.7-47.0); Hemoglobin 8.3 GM/DL (12.0-16.0); Immature Granulocytes % 0.3 %; Immature Granulocytes Absolute 0.03 #; Lymphocytes # 0.6 10*3/uL (1.4-4.0); Lymphocytes % 6.9 % (21.3-54.2); Mean Corpuscular HGB Conc 29.2 GM/DL (32-36); Mean Corpuscular Volume 93.4 FL (87-102); Monocytes # 0.5 10*3/uL (0.11-0.8); Monocytes % 5.8 % (1.7-12.7); Neutrophils % 84.7 % (38.7-73.9); Platelet Count 252 T/CUMM (130-400); Red Blood Count 3.04 MC/CUMM (3.8-5.5); Red Cell Distribution Width 16.8 % (9.3-17.3); White Blood Count 8.6 T/CUMM (4-12)
[2022-02-14 05:04] LABS: Calcium 9.5 MG/DL (8.5-10.1); Osmolality,Calculated 275.5 MOS/KG (273-304); Phosphorous 3.3 MG/DL (2.5-4.9); Potassium 3.8 MMOL/L (3.5-5.1)
[2022-02-14 05:19] LABS: Platelet Estimate Adequate
[2022-02-14] MEDS: PIPERACILLIN/TAZOBACTAM 3,375 MG in SODIUM CHLORIDE 0.9% 100 ML IV SCH ×3 (05:46→21:23)
[2022-02-14] MEDS: POTASSIUM CHLORIDE INJ 10 MEQ in SODIUM CHLORIDE 0.45% 1,000 ML IV SCH ×3 (05:46→16:20)
[2022-02-14] MEDS: DORNASE ALFA 2.5 MG/2.5 ML VIAL RESP TX SCH (07:21)
[2022-02-14] MEDS: PANTOPRAZOLE 40 MG VIAL IV SCH (09:40)
[2022-02-14] MEDS: POLYETHYLENE GLYCOL POWDER 17 GM PACK PO SCH ×2 (09:40→21:20)
[2022-02-14] MEDS: ASCORBIC ACID 500 MG TABLET PO SCH ×2 (09:41→21:17)
[2022-02-14] MEDS: DIGOXIN 0.125 MG TABLET PO SCH (09:41)
[2022-02-14] MEDS: ANASTROZOLE 1 MG TABLET PO SCH (09:41)
[2022-02-14] MEDS: CYANOCOBALAMIN 500 MCG TABLET PO SCH (09:41)
[2022-02-14] MEDS: FOLIC ACID 1 MG TABLET PO SCH (09:41)
[2022-02-14] MEDS: MAGNESIUM OXIDE 400 MG TABLET PO SCH ×2 (09:41→21:17)
[2022-02-14] MEDS: ESCITALOPRAM 10 MG TABLET PO SCH (09:41)
[2022-02-14] MEDS: ENOXAPARIN 40 MG/0.4 ML SYRINGE SUBCUT SCH (13:28)
[2022-02-14] MEDS: MIRTAZAPINE 15 MG TABLET PO SCH (21:17)
[2022-02-14] MEDS: carvediloL 3.125 MG TABLET PO SCH (21:17)
[2022-02-14] MEDS: HYDROmorphone 1 MG/1 ML SYRINGE IV PRN (23:17)
[2022-02-15] MEDS: ALBUTEROL/IPRATROPIUM 3 ML NEB RESP TX SCH ×6 (00:17→19:25)
[2022-02-15] MEDS: POTASSIUM CHLORIDE INJ 10 MEQ in SODIUM CHLORIDE 0.45% 1,000 ML IV SCH ×4 (03:18→23:34)
[2022-02-15 04:03] LABS: ABG Base Excess -2.6 MMOL/L (-2.5-2.5); ABG HCO3 22.2 MMOL/L (20-26); ABG Oxygen Saturation 92.9 % (95-100); ABG PCO2 51.9 MM HG (35-48); ABG PH 7.283 (7.35-7.45); ABG TCO2 22.8 MMOL/L (23-27)
[2022-02-15 04:24] LABS: Calcium 9.6 MG/DL (8.5-10.1); Osmolality,Calculated 272.8 MOS/KG (273-304); Potassium 3.9 MMOL/L (3.5-5.1)
[2022-02-15 04:32] LABS: Basophils % 0.5 % (0.0-0.8); Eosinophils # 0.2 10*3/uL (0.0-0.87); Eosinophils % 2.6 % (0.00-10.9); Hematocrit 28.6 VOL% (35.7-47.0); Immature Granulocytes % 0.5 %; Immature Granulocytes Absolute 0.04 #; Lymphocytes # 0.7 10*3/uL (1.4-4.0); Mean Corpuscular HGB Conc 32.5 GM/DL (32-36); Mean Corpuscular Volume 92.6 FL (87-102); Mean Platelet Volume 10.2 FL (9.6-12.0); Monocytes # 0.5 10*3/uL (0.11-0.8); Monocytes % 5.8 % (1.7-12.7); Neutrophils % 82.6 % (38.7-73.9); Platelet Count 310 T/CUMM (130-400); Red Blood Count 3.09 MC/CUMM (3.8-5.5); White Blood Count 8.9 T/CUMM (4-12)
[2022-02-15 04:37] LABS: Hemoglobin 9.3 GM/DL (12.0-16.0)
[2022-02-15] MEDS: PIPERACILLIN/TAZOBACTAM 3,375 MG in SODIUM CHLORIDE 0.9% 100 ML IV SCH ×3 (05:30→22:45)
[2022-02-15] MEDS: MAGNESIUM SULF RIDER 2 GM/50 ML PREMIX IV PRN (05:32)
[2022-02-15] MEDS ORDERED: FUROSEMIDE 40 MG/4 ML VIAL IV ONE (07:49)
[2022-02-15] MEDS: PANTOPRAZOLE 40 MG VIAL IV SCH (08:02)
[2022-02-15] MEDS: ANASTROZOLE 1 MG TABLET PO SCH (08:02)
[2022-02-15] MEDS: CYANOCOBALAMIN 500 MCG TABLET PO SCH (08:02)
[2022-02-15] MEDS: POLYETHYLENE GLYCOL POWDER 17 GM PACK PO SCH ×2 (08:02→22:45)
[2022-02-15] MEDS: ASCORBIC ACID 500 MG TABLET PO SCH ×2 (08:03→22:44)
[2022-02-15] MEDS: carvediloL 3.125 MG TABLET PO SCH ×2 (08:03→22:44)
[2022-02-15] MEDS: MAGNESIUM OXIDE 400 MG TABLET PO SCH ×2 (08:03→22:44)
[2022-02-15] MEDS: ESCITALOPRAM 10 MG TABLET PO SCH (08:03)
[2022-02-15] MEDS: FOLIC ACID 1 MG TABLET PO SCH (08:03)
[2022-02-15] MEDS: DIGOXIN 0.125 MG TABLET PO SCH (08:03)
[2022-02-15] MEDS ORDERED: MIDAZOLAM 2 MG/2 ML VIAL ONE ×2 (10:59→11:00)
[2022-02-15] MEDS ORDERED: ETOMIDATE 20 MG/10 ML VIAL IV ONE (11:18)
[2022-02-15] MEDS ORDERED: SUCCINYLCHOLINE 200 MG/10 ML VIAL ONE (11:20)
[2022-02-15 11:40] LABS: ABG HCO3 22.4 MMOL/L (20-26); ABG Oxygen Saturation 74.2 % (95-100); ABG PO2 52.5 MM HG (80-95); ABG TCO2 26.8 MMOL/L (23-27)
[2022-02-15 11:42] LABS: ABG PH 7.173 (7.35-7.45)
[2022-02-15 12:43] LABS: ABG Base Excess -1.9 MMOL/L (-2.5-2.5); ABG HCO3 22.8 MMOL/L (20-26); ABG Oxygen Saturation 99.6 % (95-100); ABG PCO2 40.9 MM HG (35-48); ABG PH 7.363 (7.35-7.45); ABG TCO2 21.7 MMOL/L (23-27)
[2022-02-15] MEDS: PHENYLEPHRINE DRIP 40 MG/250 ML PREMIX IV PRN (12:45)
[2022-02-15] MEDS: MIDAZOLAM 100 MG in SODIUM CHLORIDE 0.9% 80 ML IV PRN (12:46)
[2022-02-15] MEDS ORDERED: MIDAZOLAM 2 MG/2 ML VIAL IV ONE (12:57)
[2022-02-15] MEDS: ENOXAPARIN 40 MG/0.4 ML SYRINGE SUBCUT SCH (13:39)
[2022-02-15 15:54] LABS: Granular Casts,Urine 1 /LPF (0-1); Hyaline Casts,Urine 1 /LPF (0-3); Mucus,Urine Occasional /LPF (Occasional); RBC,Urine 1 /HPF (0-4)
[2022-02-15 15:55] LABS: Bilirubin,Urine Negative (Negative); Blood, Urine Trace mg/dL (Negative); Glucose,Urine (UA) Negative (Negative); Ketones,Urine Negative (Negative); Nitrite,Urine Negative (Negative); Protein,Urine Negative (Negative); Urine Appearance Clear (Clear); Urine Color Yellow (Yellow); Urine Urobilinogen 0.2 eU/dL (<2.0); Urine pH 5.5 (4.5-8.0)
[2022-02-15] MEDS: MIRTAZAPINE 15 MG TABLET PO SCH (22:45)
[2022-02-16] MEDS: ALBUTEROL/IPRATROPIUM 3 ML NEB RESP TX SCH ×8 (00:02→23:52)
[2022-02-16] MEDS: MIDAZOLAM 100 MG in SODIUM CHLORIDE 0.9% 80 ML IV PRN ×2 (02:26→15:37)
[2022-02-16] MEDS: PHENYLEPHRINE DRIP 40 MG/250 ML PREMIX IV PRN ×2 (02:28→14:15)
[2022-02-16 04:14] LABS: Basophils % 0.3 % (0.0-0.8); Eosinophils % 0.3 % (0.00-10.9); Hematocrit 27.7 VOL% (35.7-47.0); Hemoglobin 8.5 GM/DL (12.0-16.0); Immature Granulocytes % 0.6 %; Immature Granulocytes Absolute 0.08 #; Lymphocytes # 1.1 10*3/uL (1.4-4.0); Lymphocytes % 8.8 % (21.3-54.2); Mean Corpuscular HGB Conc 30.7 GM/DL (32-36); Mean Corpuscular Volume 88.5 FL (87-102); Mean Platelet Volume 9.9 FL (9.6-12.0); Monocytes # 0.5 10*3/uL (0.11-0.8); Monocytes % 3.7 % (1.7-12.7); Neutrophils % 86.3 % (38.7-73.9); Platelet Count 362 T/CUMM (130-400); Red Blood Count 3.13 MC/CUMM (3.8-5.5); Red Cell Distribution Width 17.2 % (9.3-17.3); White Blood Count 12.6 T/CUMM (4-12)
[2022-02-16 04:18] LABS: ABG Base Excess -1.2 MMOL/L (-2.5-2.5); ABG HCO3 23.5 MMOL/L (20-26); ABG Oxygen Saturation 99.6 % (95-100); ABG PCO2 26.9 MM HG (35-48); ABG PH 7.504 (7.35-7.45); ABG TCO2 19.5 MMOL/L (23-27)
[2022-02-16 04:26] LABS: Osmolality,Calculated 277.4 MOS/KG (273-304)
[2022-02-16] MEDS ORDERED: POTASSIUM BICARB EFFERVESCENT 20 MEQ TAB.EFF PER TUBE PRN (04:38)
[2022-02-16] MEDS: MAGNESIUM SULF RIDER 2 GM/50 ML PREMIX IV PRN (04:48)
[2022-02-16] MEDS: POTASSIUM CHLORIDE RIDER 20 MEQ/100 ML PREMIX IV PRN ×2 (04:49→06:39)
[2022-02-16] MEDS: PIPERACILLIN/TAZOBACTAM 3,375 MG in SODIUM CHLORIDE 0.9% 100 ML IV SCH ×3 (05:59→21:38)
[2022-02-16] MEDS: PANTOPRAZOLE 40 MG VIAL IV SCH (08:20)
[2022-02-16] MEDS: POLYETHYLENE GLYCOL POWDER 17 GM PACK PO SCH ×2 (08:20→20:18)
[2022-02-16] MEDS: ASCORBIC ACID 500 MG TABLET PO SCH ×2 (08:21→20:19)
[2022-02-16] MEDS: ANASTROZOLE 1 MG TABLET PO SCH (08:21)
[2022-02-16] MEDS: CYANOCOBALAMIN 500 MCG TABLET PO SCH (08:21)
[2022-02-16] MEDS: carvediloL 3.125 MG TABLET PO SCH ×2 (08:21→20:18)
[2022-02-16] MEDS: FOLIC ACID 1 MG TABLET PO SCH (08:21)
[2022-02-16] MEDS: DIGOXIN 0.125 MG TABLET PO SCH (08:21)
[2022-02-16] MEDS: ESCITALOPRAM 10 MG TABLET PO SCH (08:21)
[2022-02-16] MEDS: MAGNESIUM OXIDE 400 MG TABLET PO SCH ×2 (08:26→20:19)
[2022-02-16] MEDS: POTASSIUM CHLORIDE RIDER 10 MEQ/100 ML PREMIX IV PRN (08:54)
[2022-02-16] MEDS ORDERED: POTASSIUM PHOSPHATE 30 MMOL in SODIUM CHLORIDE 0.9% 250 ML IV ONE (10:00)
[2022-02-16] MEDS: POTASSIUM CHLORIDE INJ 10 MEQ in SODIUM CHLORIDE 0.45% 1,000 ML IV SCH ×2 (10:14→20:05)
[2022-02-16] MEDS: ENOXAPARIN 40 MG/0.4 ML SYRINGE SUBCUT SCH (13:56)
[2022-02-16] MEDS: MIRTAZAPINE 15 MG TABLET PO SCH (20:19)
[2022-02-17] MEDS: ALBUTEROL/IPRATROPIUM 3 ML NEB RESP TX SCH ×6 (03:43→23:49)
[2022-02-17 04:11] LABS: ABG Base Excess -1.1 MMOL/L (-2.5-2.5); ABG HCO3 23.5 MMOL/L (20-26); ABG PCO2 22.5 MM HG (35-48); ABG PH 7.562 (7.35-7.45); ABG TCO2 18.7 MMOL/L (23-27); Basophils % 0.4 % (0.0-0.8); Eosinophils # 0.2 10*3/uL (0.0-0.87); Eosinophils % 3.2 % (0.00-10.9); Hematocrit 29.9 VOL% (35.7-47.0); Hemoglobin 9.4 GM/DL (12.0-16.0); Immature Granulocytes % 0.6 %; Immature Granulocytes Absolute 0.04 #; Mean Corpuscular HGB Conc 31.4 GM/DL (32-36); Mean Corpuscular Volume 86.2 FL (87-102); Mean Platelet Volume 9.8 FL (9.6-12.0); Monocytes # 0.3 10*3/uL (0.11-0.8); Monocytes % 4.3 % (1.7-12.7); Neutrophils % 76.5 % (38.7-73.9); Red Blood Count 3.47 MC/CUMM (3.8-5.5); Red Cell Distribution Width 18.7 % (9.3-17.3)
[2022-02-17 04:14] LABS: Platelet Count 253 T/CUMM (130-400); White Blood Count 6.8 T/CUMM (4-12)
[2022-02-17 04:28] LABS: Albumin 1.4 G/DL (3.4-5.0); Bilirubin,Total 0.4 MG/DL (0.20-1.00); Calcium 8.6 MG/DL (8.5-10.1); Osmolality,Calculated 271.8 MOS/KG (273-304); Phosphorous 2.9 MG/DL (2.5-4.9); Potassium 3.6 MMOL/L (3.5-5.1); Total Protein 4.9 G/DL (6.4-8.2)
[2022-02-17] MEDS: PIPERACILLIN/TAZOBACTAM 3,375 MG in SODIUM CHLORIDE 0.9% 100 ML IV SCH (05:02)
[2022-02-17] MEDS: MIDAZOLAM 100 MG in SODIUM CHLORIDE 0.9% 80 ML IV PRN (05:02)
[2022-02-17] MEDS: MAGNESIUM SULF RIDER 2 GM/50 ML PREMIX IV PRN (05:42)
[2022-02-17] MEDS: POTASSIUM CHLORIDE INJ 10 MEQ in SODIUM CHLORIDE 0.45% 1,000 ML IV SCH (05:42)
[2022-02-17] MEDS: POTASSIUM CHLORIDE RIDER 20 MEQ/100 ML PREMIX IV PRN (05:44)
[2022-02-17] MEDS: ANASTROZOLE 1 MG TABLET PO SCH (08:48)
[2022-02-17] MEDS: POLYETHYLENE GLYCOL POWDER 17 GM PACK PO SCH ×2 (08:48→21:01)
[2022-02-17] MEDS: ESCITALOPRAM 10 MG TABLET PO SCH (08:48)
[2022-02-17] MEDS: FOLIC ACID 1 MG TABLET PO SCH (08:48)
[2022-02-17] MEDS: carvediloL 3.125 MG TABLET PO SCH ×2 (08:48→21:00)
[2022-02-17] MEDS: MAGNESIUM OXIDE 400 MG TABLET PO SCH ×2 (08:48→21:01)
[2022-02-17] MEDS: PANTOPRAZOLE 40 MG VIAL IV SCH (08:48)
[2022-02-17] MEDS: DIGOXIN 0.125 MG TABLET PO SCH (08:48)
[2022-02-17] MEDS: CYANOCOBALAMIN 500 MCG TABLET PO SCH (08:49)
[2022-02-17] MEDS: ASCORBIC ACID 500 MG TABLET PO SCH ×2 (08:49→20:59)
[2022-02-17] MEDS ORDERED: DEXTROSE 10% 250 ML BAG IV PRN (08:56)
[2022-02-17] MEDS ORDERED: EPINEPHrine 1 MG/10 ML SYRINGE IV ONE (11:21)
[2022-02-17] MEDS ORDERED: SODIUM BICARBONATE 50 MEQ/50 ML SYRINGE IV ONE (11:21)
[2022-02-17] MEDS: INSULIN LISPRO 100 UNIT/ML SUBCUT SCH ×2 (13:03→17:51)
[2022-02-17 14:28] LABS: ABG Base Excess -1.1 MMOL/L (-2.5-2.5); ABG HCO3 23.5 MMOL/L (20-26); ABG Oxygen Saturation 98.8 % (95-100); ABG PCO2 34.3 MM HG (35-48); ABG TCO2 21.1 MMOL/L (23-27)
[2022-02-17] MEDS ORDERED: FUROSEMIDE 40 MG/4 ML VIAL IV ONE (18:56)
[2022-02-17] MEDS: APIXABAN 5 MG TABLET PO SCH (21:00)
[2022-02-17] MEDS: MIRTAZAPINE 15 MG TABLET PO SCH (21:01)
[2022-02-18] MEDS: INSULIN LISPRO 100 UNIT/ML SUBCUT SCH ×4 (00:36→17:16)
[2022-02-18] MEDS: ALBUTEROL/IPRATROPIUM 3 ML NEB RESP TX SCH ×5 (03:18→19:18)
[2022-02-18 03:35] LABS: ABG Base Excess 0.8 MMOL/L (-2.5-2.5); ABG HCO3 25.2 MMOL/L (20-26); ABG Oxygen Saturation 99.2 % (95-100); ABG PCO2 33.8 MM HG (35-48); ABG PH 7.462 (7.35-7.45); ABG TCO2 21.9 MMOL/L (23-27)
[2022-02-18 03:40] LABS: Basophils % 0.4 % (0.0-0.8); Eosinophils # 0.3 10*3/uL (0.0-0.87); Eosinophils % 3.5 % (0.00-10.9); Hematocrit 28.4 VOL% (35.7-47.0); Hemoglobin 8.8 GM/DL (12.0-16.0); Immature Granulocytes % 0.5 %; Immature Granulocytes Absolute 0.04 #; Lymphocytes % 12.6 % (21.3-54.2); Mean Corpuscular Volume 87.9 FL (87-102); Monocytes # 0.3 10*3/uL (0.11-0.8); Monocytes % 4.4 % (1.7-12.7); Neutrophils % 78.6 % (38.7-73.9); Platelet Count 276 T/CUMM (130-400); Red Blood Count 3.23 MC/CUMM (3.8-5.5); Red Cell Distribution Width 18.7 % (9.3-17.3); White Blood Count 7.8 T/CUMM (4-12)
[2022-02-18 03:55] LABS: Alanine Aminotransferase 11 U/L (13-56); Albumin 1.4 G/DL (3.4-5.0); Alkaline Phosphatase 62 U/L (45-117); Aspartate Amino Transferase 7 U/L (0-37); Bilirubin,Total < 0.39 MG/DL (0.20-1.00); Blood Urea Nitrogen 8 MG/DL (7-18); Calcium 8.9 MG/DL (8.5-10.1); Carbon Dioxide 23 MMOL/L (21-32); Chloride 110 MMOL/L (98-107); Glucose 98 MG/DL (74-106); Osmolality,Calculated 280.1 MOS/KG (273-304); Potassium 3.3 MMOL/L (3.5-5.1); Sodium 142 MMOL/L (136-145); Total Protein 5.1 G/DL (6.4-8.2)
[2022-02-18] MEDS: POTASSIUM CHLORIDE RIDER 20 MEQ/100 ML PREMIX IV PRN (06:33)
[2022-02-18] MEDS ORDERED: FUROSEMIDE 40 MG/4 ML VIAL IV ONE (08:05)
[2022-02-18] MEDS: MAGNESIUM OXIDE 400 MG TABLET PO SCH ×2 (08:22→21:19)
[2022-02-18] MEDS: carvediloL 3.125 MG TABLET PO SCH ×2 (08:22→21:18)
[2022-02-18] MEDS: CYANOCOBALAMIN 500 MCG TABLET PO SCH (08:22)
[2022-02-18] MEDS: POLYETHYLENE GLYCOL POWDER 17 GM PACK PO SCH ×2 (08:22→21:18)
[2022-02-18] MEDS: ANASTROZOLE 1 MG TABLET PO SCH (08:22)
[2022-02-18] MEDS: DIGOXIN 0.125 MG TABLET PO SCH (08:22)
[2022-02-18] MEDS: APIXABAN 5 MG TABLET PO SCH ×2 (08:22→21:17)
[2022-02-18] MEDS: ESCITALOPRAM 10 MG TABLET PO SCH (08:22)
[2022-02-18] MEDS: FOLIC ACID 1 MG TABLET PO SCH (08:22)
[2022-02-18] MEDS: PANTOPRAZOLE 40 MG VIAL IV SCH (08:22)
[2022-02-18] MEDS: ASCORBIC ACID 500 MG TABLET PO SCH ×2 (08:23→21:20)
[2022-02-18] MEDS: CHOLECALCIFEROL 1,000 UNIT TABLET PO SCH (08:23)
[2022-02-18] MEDS ORDERED: FUROSEMIDE 40 MG/4 ML VIAL IV SCH (09:00)
[2022-02-18] MEDS ORDERED: PHENOL 1.4% THROAT SPRAY 177 ML BOTTLE PO PRN (13:03)
[2022-02-18] MEDS ORDERED: BENZOCAINE/MENTHOL LOZENGE 18/BOX PO PRN (13:03)
[2022-02-18] MEDS: MIRTAZAPINE 15 MG TABLET PO SCH (21:18)
[2022-02-19] MEDS: INSULIN LISPRO 100 UNIT/ML SUBCUT SCH ×5 (00:45→23:13)
[2022-02-19] MEDS: ALBUTEROL/IPRATROPIUM 3 ML NEB RESP TX SCH ×7 (04:00→22:11)
[2022-02-19 04:53] LABS: ABG Base Excess 3.1 MMOL/L (-2.5-2.5); ABG HCO3 27.2 MMOL/L (20-26); ABG Oxygen Saturation 96.3 % (95-100); ABG PCO2 42.2 MM HG (35-48); ABG PH 7.426 (7.35-7.45); ABG PO2 82.5 MM HG (80-95); ABG TCO2 25.5 MMOL/L (23-27)
[2022-02-19 05:00] LABS: Basophils % 0.3 % (0.0-0.8); Eosinophils # 0.3 10*3/uL (0.0-0.87); Eosinophils % 4.6 % (0.00-10.9); Hematocrit 28.1 VOL% (35.7-47.0); Hemoglobin 8.5 GM/DL (12.0-16.0); Immature Granulocytes % 0.4 %; Immature Granulocytes Absolute 0.03 #; Lymphocytes # 0.9 10*3/uL (1.4-4.0); Lymphocytes % 12.9 % (21.3-54.2); Mean Corpuscular HGB Conc 30.2 GM/DL (32-36); Mean Corpuscular Volume 89.2 FL (87-102); Mean Platelet Volume 9.8 FL (9.6-12.0); Monocytes # 0.4 10*3/uL (0.11-0.8); Monocytes % 5.6 % (1.7-12.7); Neutrophils % 76.2 % (38.7-73.9); Platelet Count 248 T/CUMM (130-400); Red Blood Count 3.15 MC/CUMM (3.8-5.5); Red Cell Distribution Width 18.7 % (9.3-17.3); White Blood Count 6.8 T/CUMM (4-12)
[2022-02-19 05:07] LABS: Calcium 8.8 MG/DL (8.5-10.1); Osmolality,Calculated 282.8 MOS/KG (273-304)
[2022-02-19] MEDS: POTASSIUM CHLORIDE RIDER 20 MEQ/100 ML PREMIX IV PRN ×2 (07:13→09:16)
[2022-02-19] MEDS: carvediloL 3.125 MG TABLET PO SCH ×2 (09:14→21:01)
[2022-02-19] MEDS: ANASTROZOLE 1 MG TABLET PO SCH (09:14)
[2022-02-19] MEDS: ESCITALOPRAM 10 MG TABLET PO SCH (09:14)
[2022-02-19] MEDS: MAGNESIUM OXIDE 400 MG TABLET PO SCH ×2 (09:14→21:00)
[2022-02-19] MEDS: APIXABAN 5 MG TABLET PO SCH ×2 (09:14→21:01)
[2022-02-19] MEDS: POLYETHYLENE GLYCOL POWDER 17 GM PACK PO SCH ×2 (09:15→21:01)
[2022-02-19] MEDS: ACETAMINOPHEN 325 MG TABLET PO PRN (09:15)
[2022-02-19] MEDS: PANTOPRAZOLE 40 MG VIAL IV SCH (09:16)
[2022-02-19] MEDS: DIGOXIN 0.125 MG TABLET PO SCH (09:20)
[2022-02-19] MEDS ORDERED: ALBUMIN 25% 12.5 GM/50 ML VIAL IV ONE (09:21)
[2022-02-19] MEDS: ASCORBIC ACID 500 MG TABLET PO SCH ×2 (09:23→21:00)
[2022-02-19] MEDS: CHOLECALCIFEROL 1,000 UNIT TABLET PO SCH (09:23)
[2022-02-19] MEDS: CYANOCOBALAMIN 500 MCG TABLET PO SCH (09:23)
[2022-02-19] MEDS: FOLIC ACID 1 MG TABLET PO SCH (09:26)
[2022-02-19] MEDS: POTASSIUM CHLORIDE RIDER 10 MEQ/100 ML PREMIX IV PRN (11:18)
[2022-02-19] MEDS: FUROSEMIDE 40 MG/4 ML VIAL IV SCH (16:18)
[2022-02-19] MEDS: MIRTAZAPINE 15 MG TABLET PO SCH (21:00)
[2022-02-19] MEDS: guaiFENesin 200 MG/10 ML UDCUP PO PRN (23:56)
[2022-02-20] MEDS: ALBUTEROL/IPRATROPIUM 3 ML NEB RESP TX SCH ×6 (02:14→22:52)
[2022-02-20 03:45] LABS: Basophils % 0.1 % (0.0-0.8); Eosinophils # 0.2 10*3/uL (0.0-0.87); Eosinophils % 2.4 % (0.00-10.9); Hematocrit 27.6 VOL% (35.7-47.0); Hemoglobin 8.3 GM/DL (12.0-16.0); Immature Granulocytes % 0.7 %; Immature Granulocytes Absolute 0.07 #; Lymphocytes # 0.8 10*3/uL (1.4-4.0); Lymphocytes % 8.5 % (21.3-54.2); Mean Corpuscular HGB Conc 30.1 GM/DL (32-36); Mean Corpuscular Volume 90.8 FL (87-102); Mean Platelet Volume 9.6 FL (9.6-12.0); Monocytes # 0.6 10*3/uL (0.11-0.8); Monocytes % 6.1 % (1.7-12.7); Neutrophils % 82.2 % (38.7-73.9); Platelet Count 239 T/CUMM (130-400); Red Blood Count 3.04 MC/CUMM (3.8-5.5); Red Cell Distribution Width 18.4 % (9.3-17.3); White Blood Count 9.6 T/CUMM (4-12)
[2022-02-20 04:02] LABS: Calcium 8.6 MG/DL (8.5-10.1); Osmolality,Calculated 282.3 MOS/KG (273-304); Potassium 3.1 MMOL/L (3.5-5.1)
[2022-02-20] MEDS: POTASSIUM CHLORIDE RIDER 10 MEQ/100 ML PREMIX IV PRN ×4 (04:14→07:45)
[2022-02-20] MEDS: INSULIN LISPRO 100 UNIT/ML SUBCUT SCH ×4 (05:27→21:21)
[2022-02-20 05:52] VITALS: BP 91/54
[2022-02-20] MEDS: CHOLECALCIFEROL 1,000 UNIT TABLET PO SCH (09:13)
[2022-02-20] MEDS: FUROSEMIDE 40 MG/4 ML VIAL IV SCH ×2 (09:13→16:13)
[2022-02-20] MEDS: carvediloL 3.125 MG TABLET PO SCH ×2 (09:13→21:20)
[2022-02-20] MEDS: SPIRONOLACTONE 25 MG TABLET PO SCH (09:13)
[2022-02-20] MEDS: MAGNESIUM OXIDE 400 MG TABLET PO SCH ×2 (09:13→21:21)
[2022-02-20] MEDS: ESCITALOPRAM 10 MG TABLET PO SCH (09:13)
[2022-02-20] MEDS: FOLIC ACID 1 MG TABLET PO SCH (09:14)
[2022-02-20] MEDS: APIXABAN 5 MG TABLET PO SCH ×2 (09:14→21:21)
[2022-02-20] MEDS: ASCORBIC ACID 500 MG TABLET PO SCH ×2 (09:14→21:20)
[2022-02-20] MEDS: CYANOCOBALAMIN 500 MCG TABLET PO SCH (09:14)
[2022-02-20] MEDS: DIGOXIN 0.125 MG TABLET PO SCH (09:14)
[2022-02-20] MEDS: ANASTROZOLE 1 MG TABLET PO SCH (09:14)
[2022-02-20] MEDS: POLYETHYLENE GLYCOL POWDER 17 GM PACK PO SCH ×2 (12:54→21:21)
[2022-02-20] MEDS: guaiFENesin 200 MG/10 ML UDCUP PO PRN (12:54)
[2022-02-20] MEDS: MIRTAZAPINE 15 MG TABLET PO SCH (21:20)
[2022-02-21] MEDS: ALBUTEROL/IPRATROPIUM 3 ML NEB RESP TX SCH ×3 (02:58→11:00)
[2022-02-21 04:29] LABS: Basophils % 0.1 % (0.0-0.8); Eosinophils # 0.3 10*3/uL (0.0-0.87); Eosinophils % 3.2 % (0.00-10.9); Hematocrit 27.2 VOL% (35.7-47.0); Hemoglobin 8.1 GM/DL (12.0-16.0); Immature Granulocytes % 0.7 %; Immature Granulocytes Absolute 0.06 #; Lymphocytes % 12.9 % (21.3-54.2); Mean Corpuscular HGB Conc 29.8 GM/DL (32-36); Mean Platelet Volume 9.7 FL (9.6-12.0); Monocytes # 0.6 10*3/uL (0.11-0.8); Neutrophils % 76.1 % (38.7-73.9); Platelet Count 237 T/CUMM (130-400); Red Blood Count 2.99 MC/CUMM (3.8-5.5); Red Cell Distribution Width 18.5 % (9.3-17.3); White Blood Count 8.1 T/CUMM (4-12)
[2022-02-21 04:50] LABS: Calcium 8.9 MG/DL (8.5-10.1); Osmolality,Calculated 281.3 MOS/KG (273-304); Potassium 2.7 MMOL/L (3.5-5.1)
[2022-02-21] MEDS: POTASSIUM CHLORIDE RIDER 10 MEQ/100 ML PREMIX IV PRN ×5 (05:45→09:48)
[2022-02-21] MEDS: MAGNESIUM SULF RIDER 2 GM/50 ML PREMIX IV PRN (05:45)
[2022-02-21] MEDS: INSULIN LISPRO 100 UNIT/ML SUBCUT SCH (07:28)
[2022-02-21] MEDS: FUROSEMIDE 40 MG/4 ML VIAL IV SCH (08:48)
[2022-02-21] MEDS: POLYETHYLENE GLYCOL POWDER 17 GM PACK PO SCH (08:50)
[2022-02-21] MEDS: CYANOCOBALAMIN 500 MCG TABLET PO SCH (08:50)
[2022-02-21] MEDS: CHOLECALCIFEROL 1,000 UNIT TABLET PO SCH (08:50)
[2022-02-21] MEDS: DIGOXIN 0.125 MG TABLET PO SCH (08:51)
[2022-02-21] MEDS: ANASTROZOLE 1 MG TABLET PO SCH (08:51)
[2022-02-21] MEDS: carvediloL 3.125 MG TABLET PO SCH (08:51)
[2022-02-21] MEDS: ASCORBIC ACID 500 MG TABLET PO SCH (08:51)
[2022-02-21] MEDS: SPIRONOLACTONE 25 MG TABLET PO SCH (08:51)
[2022-02-21] MEDS: MAGNESIUM OXIDE 400 MG TABLET PO SCH (08:51)
[2022-02-21] MEDS: APIXABAN 5 MG TABLET PO SCH (08:51)
[2022-02-21] MEDS: ESCITALOPRAM 10 MG TABLET PO SCH (08:51)
[2022-02-21] MEDS: FOLIC ACID 1 MG TABLET PO SCH (08:51)
[2022-02-21] MEDS ORDERED: POTASSIUM CHLORIDE 20 MEQ TABLET PO SCH (09:00)
== END 2022-02-21 11:25 | disposition hospice, home (50) | DRG 871 ==
LOC: EDUNIT# → EDBD → N.ED 21:25 → N.EDINP 01-30 04:18 → SUATTDRO 01-30 04:18 → N.ICU 01-30 05:18 → N.3E 02-01 14:37 → N.CC 02-11 12:07
PROVIDERS: ADMIT Internal Medicine; ATTEND Internal Medicine

== ENCOUNTER 2022-04-28 16:08 | Observation (INO) ==
[2022-04-28] MEDS ORDERED: SODIUM CHLORIDE 0.9% 500 ML IV STA (16:49)
[2022-04-28] MEDS ORDERED: PANTOPRAZOLE INJ 80 MG in SODIUM CHLORIDE 0.9% 100 ML IV STA (16:49)
[2022-04-28 17:25] LABS: Basophils % 0.1 % (0.0-0.8); Eosinophils % 0.1 % (0.00-10.9); Hematocrit 33.5 VOL% (35.7-47.0); Hemoglobin 9.9 GM/DL (12.0-16.0); Immature Granulocytes % 0.4 %; Immature Granulocytes Absolute 0.06 #; Lymphocytes # 0.7 10*3/uL (1.4-4.0); Lymphocytes % 4.9 % (21.3-54.2); Mean Corpuscular HGB Conc 29.6 GM/DL (32-36); Mean Corpuscular Volume 86.8 FL (87-102); Mean Platelet Volume 10.7 FL (9.6-12.0); Monocytes # 0.6 10*3/uL (0.11-0.8); Monocytes % 4.5 % (1.7-12.7); Platelet Count 274 T/CUMM (130-400); Red Blood Count 3.86 MC/CUMM (3.8-5.5); Red Cell Distribution Width 15.4 % (9.3-17.3); White Blood Count 14.1 T/CUMM (4-12)
[2022-04-28 17:47] LABS: Albumin 2.2 G/DL (3.4-5.0); Bilirubin,Total 0.5 MG/DL (0.20-1.00); Calcium 10.7 MG/DL (8.5-10.1); Osmolality,Calculated 270.5 MOS/KG (273-304); Potassium 4.1 MMOL/L (3.5-5.1); Total Protein 8.3 G/DL (6.4-8.2)
[2022-04-28 17:48] LABS: Platelet Estimate Normal
[2022-04-28] MEDS ORDERED: SODIUM CHLORIDE 0.9% 100 ML IV ONE ×2 (18:12)
[2022-04-28] MEDS ORDERED: PANTOPRAZOLE 40 MG VIAL IV ONE (18:12)
[2022-04-28 18:29] LABS: INR 1.2; PT Patient Result 12.7 SECS (10.1-12.1); Partial Thromboplastin Time 30.1 SECS (23.7-32.9)
[2022-04-28] MEDS ORDERED: MAGNESIUM SULF RIDER 4 GM/100 ML PREMIX IV PRN (19:41)
[2022-04-28] MEDS ORDERED: DEXTROSE 10% 250 ML BAG IV PRN (19:41)
[2022-04-28] MEDS ORDERED: POTASSIUM CHLORIDE RIDER 10 MEQ/100 ML PREMIX IV PRN (19:41)
[2022-04-28] MEDS ORDERED: ALUMINUM/MAGNES/SIMETH MAX STR 30 ML UDCUP PO PRN (19:41)
[2022-04-28] MEDS ORDERED: GLUCAGON 1 MG VIAL IM PRN (19:41)
[2022-04-28] MEDS ORDERED: ACETAMINOPHEN 325 MG TABLET PO PRN (19:41)
[2022-04-28] MEDS ORDERED: MAGNESIUM SULF RIDER 2 GM/50 ML PREMIX IV PRN (19:41)
[2022-04-28] MEDS ORDERED: POTASSIUM CHLORIDE 20 MEQ TABLET PO PRN (19:41)
[2022-04-28] MEDS ORDERED: ONDANSETRON 4 MG/2 ML VIAL IV PRN (19:41)
[2022-04-28] MEDS ORDERED: PANTOPRAZOLE INJ 200 MG in SODIUM CHLORIDE 0.9% 250 ML IV SCH (20:00)
[2022-04-28] MEDS ORDERED: ALBUTEROL/IPRATROPIUM 3 ML NEB RESP TX PRN (20:55)
[2022-04-28] MEDS: SODIUM CHLORIDE 0.9% 1,000 ML IV SCH (22:30)
[2022-04-28] MEDS: carvediloL 3.125 MG TABLET PO SCH (23:17)
[2022-04-28] MEDS: INSULIN REGULAR 100 UNIT/ML SUBCUT SCH (23:17)
[2022-04-28] MEDS: MAGNESIUM OXIDE 400 MG TABLET PO SCH (23:19)
[2022-04-28] MEDS: POTASSIUM CHLORIDE 20 MEQ TABLET PO SCH (23:19)
[2022-04-28] MEDS: metroNIDAZOLE INJ 500 MG/100 ML PREMIX IV SCH (23:25)
[2022-04-28 23:31] LABS: Hematocrit 29.1 VOL% (35.7-47.0); Hemoglobin 8.8 GM/DL (12.0-16.0)
[2022-04-29] MEDS: CIPROFLOXACIN INJ 400 MG/200 ML PREMIX IV SCH ×3 (00:42→21:53)
[2022-04-29 05:10] LABS: Basophils % 0.1 % (0.0-0.8); Eosinophils % 0.1 % (0.00-10.9); Hematocrit 27.3 VOL% (35.7-47.0); Hemoglobin 8.3 GM/DL (12.0-16.0); Immature Granulocytes % 0.5 %; Immature Granulocytes Absolute 0.08 #; Lymphocytes # 0.7 10*3/uL (1.4-4.0); Lymphocytes % 4.6 % (21.3-54.2); Mean Corpuscular HGB Conc 30.4 GM/DL (32-36); Mean Corpuscular Volume 84.8 FL (87-102); Mean Platelet Volume 10.6 FL (9.6-12.0); Monocytes # 0.8 10*3/uL (0.11-0.8); Monocytes % 5.2 % (1.7-12.7); Neutrophils % 89.5 % (38.7-73.9); Platelet Count 234 T/CUMM (130-400); Red Blood Count 3.22 MC/CUMM (3.8-5.5); Red Cell Distribution Width 15.3 % (9.3-17.3); White Blood Count 14.6 T/CUMM (4-12)
[2022-04-29 05:32] LABS: Hypochromia Slight; Lymphocytes 3 % (20-55); Microcytosis Slight; Platelet Estimate Adequate; Total Cells Counted 100
[2022-04-29 05:38] LABS: Alanine Aminotransferase < 9 U/L (13-56); Albumin 1.8 G/DL (3.4-5.0); Alkaline Phosphatase 61 U/L (45-117); Aspartate Amino Transferase 8 U/L (0-37); Blood Urea Nitrogen 22 MG/DL (7-18); Calcium 9.9 MG/DL (8.5-10.1); Carbon Dioxide 31 MMOL/L (21-32); Chloride 96 MMOL/L (98-107); Glucose 117 MG/DL (74-106); Osmolality,Calculated 273.1 MOS/KG (273-304); Potassium 3.5 MMOL/L (3.5-5.1); Sodium 135 MMOL/L (136-145); Total Protein 6.9 G/DL (6.4-8.2)
[2022-04-29] MEDS: metroNIDAZOLE INJ 500 MG/100 ML PREMIX IV SCH ×2 (06:15→17:25)
[2022-04-29] MEDS ORDERED: MAGNESIUM SULF RIDER 4 GM/100 ML PREMIX IV ONE (07:36)
[2022-04-29] MEDS: INSULIN REGULAR 100 UNIT/ML SUBCUT SCH ×4 (09:07→21:47)
[2022-04-29] MEDS: CHOLECALCIFEROL 1,000 UNIT TABLET PO SCH (09:39)
[2022-04-29] MEDS: FOLIC ACID 1 MG TABLET PO SCH (09:39)
[2022-04-29] MEDS: POTASSIUM CHLORIDE 20 MEQ TABLET PO SCH ×2 (09:40→21:47)
[2022-04-29] MEDS: MIRTAZAPINE 15 MG TABLET PO SCH (09:40)
[2022-04-29] MEDS: ESCITALOPRAM 10 MG TABLET PO SCH (09:40)
[2022-04-29] MEDS: CYANOCOBALAMIN 500 MCG TABLET PO SCH (09:40)
[2022-04-29] MEDS: ANASTROZOLE 1 MG TABLET PO SCH (09:40)
[2022-04-29] MEDS: MAGNESIUM OXIDE 400 MG TABLET PO SCH ×2 (09:40→21:47)
[2022-04-29] MEDS: FUROSEMIDE 40 MG TABLET PO SCH (09:40)
[2022-04-29] MEDS: carvediloL 3.125 MG TABLET PO SCH ×2 (09:40→21:47)
[2022-04-29] MEDS: SPIRONOLACTONE 25 MG TABLET PO SCH (09:40)
[2022-04-29] MEDS: PANTOPRAZOLE 40 MG VIAL IV SCH ×2 (10:55→21:48)
[2022-04-29] MEDS: SODIUM CHLORIDE 0.9% 1,000 ML IV SCH (17:24)
[2022-04-29] MEDS: POLYETHYLENE GLYCOL POWDER 17 GM PACK PO SCH (21:47)
[2022-04-30] MEDS: SODIUM CHLORIDE 0.9% 1,000 ML IV SCH (01:16)
[2022-04-30] MEDS: metroNIDAZOLE INJ 500 MG/100 ML PREMIX IV SCH ×3 (01:17→17:50)
[2022-04-30 06:38] LABS: Basophils % 0.2 % (0.0-0.8); Eosinophils # 0.1 10*3/uL (0.0-0.87); Eosinophils % 0.5 % (0.00-10.9); Hemoglobin 8.2 GM/DL (12.0-16.0); Immature Granulocytes % 0.7 %; Immature Granulocytes Absolute 0.09 #; Lymphocytes # 0.8 10*3/uL (1.4-4.0); Lymphocytes % 5.9 % (21.3-54.2); Mean Corpuscular HGB Conc 29.3 GM/DL (32-36); Mean Platelet Volume 11.1 FL (9.6-12.0); Monocytes # 0.7 10*3/uL (0.11-0.8); Neutrophils % 87.7 % (38.7-73.9); Platelet Count 211 T/CUMM (130-400); Red Blood Count 3.22 MC/CUMM (3.8-5.5); Red Cell Distribution Width 15.3 % (9.3-17.3)
[2022-04-30 07:09] LABS: Calcium 10.1 MG/DL (8.5-10.1); Osmolality,Calculated 278.5 MOS/KG (273-304); Potassium 3.8 MMOL/L (3.5-5.1)
[2022-04-30] MEDS: INSULIN REGULAR 100 UNIT/ML SUBCUT SCH ×4 (08:56→22:30)
[2022-04-30] MEDS: CIPROFLOXACIN INJ 400 MG/200 ML PREMIX IV SCH ×2 (09:55→22:50)
[2022-04-30] MEDS: PANTOPRAZOLE 40 MG VIAL IV SCH ×2 (09:57→22:47)
[2022-04-30] MEDS: CHOLECALCIFEROL 1,000 UNIT TABLET PO SCH (09:57)
[2022-04-30] MEDS: MAGNESIUM OXIDE 400 MG TABLET PO SCH ×2 (09:57→20:48)
[2022-04-30] MEDS: CYANOCOBALAMIN 500 MCG TABLET PO SCH (09:57)
[2022-04-30] MEDS: POLYETHYLENE GLYCOL POWDER 17 GM PACK PO SCH ×2 (09:58→12:16)
[2022-04-30] MEDS: SPIRONOLACTONE 25 MG TABLET PO SCH (09:58)
[2022-04-30] MEDS: carvediloL 3.125 MG TABLET PO SCH ×2 (09:58→20:47)
[2022-04-30] MEDS: MIRTAZAPINE 15 MG TABLET PO SCH (09:58)
[2022-04-30] MEDS: POTASSIUM CHLORIDE 20 MEQ TABLET PO SCH ×2 (09:58→20:47)
[2022-04-30] MEDS: FUROSEMIDE 40 MG TABLET PO SCH ×2 (09:58→11:29)
[2022-04-30] MEDS: ESCITALOPRAM 10 MG TABLET PO SCH (09:59)
[2022-04-30] MEDS: FOLIC ACID 1 MG TABLET PO SCH (09:59)
[2022-04-30] MEDS: ANASTROZOLE 1 MG TABLET PO SCH (09:59)
[2022-04-30] MEDS ORDERED: MAGNESIUM CITRATE 300 ML BOTTLE PO ONE (16:00)
[2022-05-01] MEDS: metroNIDAZOLE INJ 500 MG/100 ML PREMIX IV SCH ×3 (01:02→17:37)
[2022-05-01 05:28] LABS: Basophils % 0.2 % (0.0-0.8); Eosinophils # 0.2 10*3/uL (0.0-0.87); Eosinophils % 1.8 % (0.00-10.9); Hematocrit 27.8 VOL% (35.7-47.0); Immature Granulocytes % 0.4 %; Immature Granulocytes Absolute 0.04 #; Lymphocytes # 0.7 10*3/uL (1.4-4.0); Lymphocytes % 7.1 % (21.3-54.2); Mean Corpuscular HGB Conc 28.8 GM/DL (32-36); Mean Corpuscular Volume 88.5 FL (87-102); Monocytes # 0.4 10*3/uL (0.11-0.8); Monocytes % 4.4 % (1.7-12.7); Neutrophils % 86.1 % (38.7-73.9); Platelet Count 198 T/CUMM (130-400); Red Blood Count 3.14 MC/CUMM (3.8-5.5); Red Cell Distribution Width 15.3 % (9.3-17.3); White Blood Count 9.5 T/CUMM (4-12)
[2022-05-01 05:48] LABS: Hypochromia Slight; Microcytosis Slight; Ovalocytes Slight; Platelet Estimate Adequate
[2022-05-01 05:57] LABS: Calcium 10.1 MG/DL (8.5-10.1); Osmolality,Calculated 275.5 MOS/KG (273-304); Potassium 4.1 MMOL/L (3.5-5.1)
[2022-05-01] MEDS: INSULIN REGULAR 100 UNIT/ML SUBCUT SCH ×4 (08:01→21:07)
[2022-05-01] MEDS: SPIRONOLACTONE 25 MG TABLET PO SCH (10:34)
[2022-05-01] MEDS: ANASTROZOLE 1 MG TABLET PO SCH (10:34)
[2022-05-01] MEDS: BISACODYL 5 MG TABLET PO SCH ×3 (10:34→23:15)
[2022-05-01] MEDS: CIPROFLOXACIN INJ 400 MG/200 ML PREMIX IV SCH (10:34)
[2022-05-01] MEDS: carvediloL 3.125 MG TABLET PO SCH ×2 (10:35→21:06)
[2022-05-01] MEDS: FOLIC ACID 1 MG TABLET PO SCH (10:35)
[2022-05-01] MEDS: POTASSIUM CHLORIDE 20 MEQ TABLET PO SCH ×2 (10:35→21:06)
[2022-05-01] MEDS: MAGNESIUM OXIDE 400 MG TABLET PO SCH ×2 (10:35→21:06)
[2022-05-01] MEDS: FUROSEMIDE 40 MG TABLET PO SCH (10:35)
[2022-05-01] MEDS: ESCITALOPRAM 10 MG TABLET PO SCH (10:35)
[2022-05-01] MEDS: CHOLECALCIFEROL 1,000 UNIT TABLET PO SCH (10:36)
[2022-05-01] MEDS: MIRTAZAPINE 15 MG TABLET PO SCH (10:36)
[2022-05-01] MEDS: PANTOPRAZOLE 40 MG VIAL IV SCH ×2 (10:36→21:10)
[2022-05-01] MEDS: CYANOCOBALAMIN 500 MCG TABLET PO SCH (10:36)
[2022-05-01] MEDS ORDERED: POLYETHYLENE GLYCOL POWDER 255 GM BOTTLE PO ONE (18:00)
[2022-05-01] MEDS ORDERED: MAGNESIUM HYDROXIDE SUSP 30 ML UDCUP PO ONE (21:00)
[2022-05-02] MEDS: CIPROFLOXACIN INJ 400 MG/200 ML PREMIX IV SCH (03:16)
[2022-05-02] MEDS: metroNIDAZOLE INJ 500 MG/100 ML PREMIX IV SCH ×2 (03:18→14:04)
[2022-05-02 05:41] LABS: Basophils % 0.5 % (0.0-0.8); Eosinophils # 0.2 10*3/uL (0.0-0.87); Eosinophils % 2.8 % (0.00-10.9); Hematocrit 28.9 VOL% (35.7-47.0); Hemoglobin 8.5 GM/DL (12.0-16.0); Immature Granulocytes % 0.4 %; Immature Granulocytes Absolute 0.03 #; Lymphocytes # 0.7 10*3/uL (1.4-4.0); Lymphocytes % 9.2 % (21.3-54.2); Mean Corpuscular HGB Conc 29.4 GM/DL (32-36); Mean Corpuscular Volume 86.5 FL (87-102); Mean Platelet Volume 11.7 FL (9.6-12.0); Monocytes # 0.4 10*3/uL (0.11-0.8); Monocytes % 4.6 % (1.7-12.7); Neutrophils % 82.5 % (38.7-73.9); Platelet Count 176 T/CUMM (130-400); Red Blood Count 3.34 MC/CUMM (3.8-5.5); Red Cell Distribution Width 15.1 % (9.3-17.3); White Blood Count 7.8 T/CUMM (4-12)
[2022-05-02] MEDS: INSULIN REGULAR 100 UNIT/ML SUBCUT SCH ×2 (08:33→12:33)
[2022-05-02] MEDS ORDERED: LACTATED RINGERS 1,000 ML IV SCH (09:00)
[2022-05-02] MEDS ORDERED: LIDOCAINE 2% 5 ML VIAL ONE (10:20)
[2022-05-02] MEDS ORDERED: propofoL 200 MG/20 ML VIAL IV ONE (10:20)
[2022-05-02] MEDS: MAGNESIUM OXIDE 400 MG TABLET PO SCH (12:32)
[2022-05-02] MEDS: PANTOPRAZOLE 40 MG VIAL IV SCH (12:32)
[2022-05-02] MEDS: POTASSIUM CHLORIDE 20 MEQ TABLET PO SCH (12:32)
[2022-05-02 12:49] VITALS: BP 113/55
[2022-05-02] MEDS: CYANOCOBALAMIN 500 MCG TABLET PO SCH (14:04)
[2022-05-02] MEDS: carvediloL 3.125 MG TABLET PO SCH (14:05)
[2022-05-02] MEDS: MIRTAZAPINE 15 MG TABLET PO SCH (14:05)
[2022-05-02] MEDS: CHOLECALCIFEROL 1,000 UNIT TABLET PO SCH (14:05)
[2022-05-02] MEDS: ANASTROZOLE 1 MG TABLET PO SCH (14:05)
[2022-05-02] MEDS: FOLIC ACID 1 MG TABLET PO SCH (14:05)
[2022-05-02] MEDS: ESCITALOPRAM 10 MG TABLET PO SCH (14:05)
[2022-05-02] MEDS: FUROSEMIDE 40 MG TABLET PO SCH (14:06)
[2022-05-02] MEDS: SPIRONOLACTONE 25 MG TABLET PO SCH (14:06)
== END 2022-05-02 16:41 | disposition swing bed (61) ==
LOC: N.EDINP 16:08 → N.ED 16:08 → N.5E 19:41 → SUATTDRO 04-29 07:33
PROVIDERS: ADMIT Internal Medicine; ATTEND Internal Medicine